=== PATIENT | male | born 1970 | race Caucasian/White ===

== ENCOUNTER 2017-07-26 16:47 | Emergency (ER) | payer OTHER, SELFPAY ==
[2017-07-26 16:48] VITALS: BP 147/90; PULSE 90; RESP 17; TEMP 38.6; O2SAT 96; BMI 33.3
[2017-07-26 17:49] LABS: Mucous, Urine 0 SEEN /hpf (<or=2+); Squamous Epithelial Cells - UA 0 SEEN /hpf (0-5)
[2017-07-26] MEDS: Acetaminophen 500 MG Tablet 1000 MG PO (17:49)
[2017-07-26 17:55] LABS: Color, Urine Yellow (Yellow); Glucose, Dipstick Normal (Normal); Ketone-Dipstick Negative (Negative); Leukocyte Esterase-Dipstick 25 /ul (Negative); Nitrite-Dipstick Negative (Negative); Occult Blood-Urine 10 /ul (Negative); Protein-Dipstick 30 mg/dl (Negative); Specific Gravity, Urine 1.015 (1.002-1.030); Urine Bilirubin Dipstick Negative (Negative); Urine Clarity Sl. Cloudy (Clear); Urine Urobilinogen 4 mg/dl (Normal); Urine pH 6.5 (5.0 - 8.0)
[2017-07-26 17:58] LABS: Absolute Neutrophil Count 13.8 X10^3/uL (2.0-7.7); Basophil# 0.02 X10^3/uL; Basophil% 0.1 % (0-1); Eosinophil# 0.02 X10^3/uL; Eosinophils% 0.1 % (0-5); Hematocrit 44.9 % (40-54); Hemoglobin 15.1 g/dl (13.0-16.5); Lymphocyte % 13.2 % (19-41); Mean Corp Hgb Conc 33.6 g/gl (32-36); Mean Corpuscular Volume 89.1 fL (80-94); Mean Platelet Vol. 9.5 fl (6.2-12.0); Monocyte# 1.82 X10^3/uL; Neutrophil # 13.82 X10^3/uL (2.7-7.7); Neutrophil % 76.2 % (47-70); Platelet Count 220 K/mm3 (150-450); RBC Distribution Width CV 12.9 % (11.6-14.6); RBC Distribution Width SD 41.7 fl (35.1-43.9); Red Blood Count 5.04 M/mm3 (4.6-6.2); White Blood Count 18.2 K/mm3 (4.4-11.0)
[2017-07-26 17:59] LABS: Differential Indicated SCAN CRITERIA MET; POSITIVE COUNT NO; POSITIVE DIFFERENTIAL YES; POSITIVE MORPHOLOGY NO
[2017-07-26 18:01] LABS: Bacteria 1+ /hpf (None Seen); Red Blood Cells-Urine 0-5 SEEN /hpf (0-5); White Blood Cells 5-10 SEEN /hpf (0-5)
[2017-07-26 18:04] LABS: Anion Gap 7 (5-15); BUN 15 mg/dL (7-18); BUN/Creat Ratio 12.4 RATIO (10-20); Calcium,Total 8.3 mg/dL (8.5-10.1); Chloride 102 mmol/L (98-107); Creatinine, Serum 1.21 mg/dL (0.70-1.30); EST Glomerular Filtration Rate 69 mL/min (>60); Est Glom Filt Rate - Afr Amer 83 mL/min (>60); Estimated Creatinine Clearance 69.57 ml/min; Glucose 96 mg/dL (74-106); Potassium 3.9 mmol/L (3.5-5.1); Sodium Level 135 mmol/L (136-145)
[2017-07-26 18:24] LABS: Differential Comment SCANNED
--- NOTE | 2017-07-26 18:28 | CT_ITS ---
STUDY: CT ABDOMEN AND PELVIS WITHOUT CONTRAST REASON FOR EXAM: Male, 46 years old. Right flank pain, fever, and chills x2 days RADIATION DOSAGE (If Supplied By Facility): CTDIvol = ( 12.18 ) mGy, DLP = ( 617.80 ) mGycm TECHNIQUE: Transaxial images were obtained from the dome of the diaphragm to the symphysis pubis without oral contrast, and without intravenous contrast. Sagittal and coronal images were reconstructed. Individualized dose optimization techniques were used for this CT. COMPARISON: None. FINDINGS: The visualized lung bases are unremarkable. The visualized portions of the heart are within normal limits. There is decreased attenuation of the liver consistent with steatosis. Normal gallbladder and extrahepatic biliary system. Normal spleen. Normal pancreas. Normal bilateral adrenal glands. Normal right kidney. There is mild right perinephric stranding. There is a punctate nonobstructing calculus in the midpole of the left kidney. Normal visualized stomach. Normal small intestine. There is mild sigmoid diverticulosis with no evidence of associated diverticulitis. The appendix is visualized and appears normal. There are calcified plaques of the abdominal aorta. Normal inferior vena cava. Normal retroperitoneum. Normal urinary bladder. The prostate is mildly enlarged. Prostatic calcifications are present. There is a small umbilical hernia containing fat. There mild degenerative changes of the visualized thoracolumbar spine. CT/Abdomen/Pelvis without Cont IMPRESSION: 1. Hepatic steatosis. 2. Mild right perinephric stranding. There is no evidence of right hydronephrosis, nephrolithiasis, hydroureter, or ureterolithiasis. 3. Punctate nonobstructing calculus of the mid pole of the left kidney. 4. Mild sigmoid diverticulosis with no evidence of associated diverticulitis. 5. The appendix is normal. 6. Mildly enlarged prostate containing calcifications. 7. Small fat-containing umbilical hernia. Electronically Signed: Slade Kendall MD at 19:06 EDT , Service support ,
[2017-07-26 19:23] VITALS: BP 138/78; PULSE 73; RESP 16; TEMP 38; O2SAT 96
[2017-07-26] MEDS: Ceftriaxone 1 GM/50 ML BAG IV (19:36)
--- NOTE | 2017-07-26 20:33 | ED.VISSUMM ---
- ER Visit Summary Date of Service: 07/26/17 Chief Complaint: Fever History of Present Illness: The patient is a 46 M who had gradual onset of mild pain in his mid low back yesterday, today started having fevers and chills subjectively, pain moved to the right side only. Also some mild dysuria. No abdominal pain, cough, dyspnea, or other symptoms. Never had any urinary or prostate problems in the past. Physical Examination: Well-appearing in no acute distress. Abdomen soft nontender nondistended. No CVA tenderness, superficial back tenderness, or rash. Lungs clear, heart is regular with mild tachycardia. Neck is supple without lymphadenopathy. Test Results: White blood count is 18 with a strong left shift, no bandemia. Kidney function is normal. Urinalysis shows 5-10 white blood cells with trace leukocyte esterase and negative nitrite. CT shows perinephric stranding on the right. No urolithiasis or obstructive uropathy. Emergency Department Course and Treatment: Given white blood count and lack of significant findings of infection on urinalysis, CT was obtained, which does show pyelonephritis findings, which is what I was suspicious of clinically. He was given Tylenol for his fever and pain and declined offers for any other analgesics. Culture was sent and he was given empiric Rocephin 1 g IV. On reevaluation his temperature is down to 99.8 from 101. Unknown why he contracted pyelonephritis, will refer to urology as an outpatient. Treatment Plan: Cipro ?10 days after already given Rocephin IV Disposition: Discharge home Impression: Pyelonephritis This note was generated with Splash[employer] dictation software. It may contain incorrect words, spelling, and punctuation that were not noted in review of the chart prior to signing ED Disposition - Plan for ED Patient: Disposition: Home or Assisted Living Chief Complaint: Flank Pain Instructions: ED UTI Pyelonephritis Male Prescriptions: Ciprofloxacin [Cipro] 500 mg PO BID #20 tab Referrals: Gustabo Salas MD [STAFF PHYSICIAN] - As soon as possible
[2017-07-26] MEDS: Ciprofloxacin 500 MG Tablet PO (20:44)
[2017-07-26 20:45] VITALS: PULSE 67; RESP 16; TEMP 37.7; O2SAT 97
== END 2017-07-26 20:46 | disposition home or self-care (01) ==
PROVIDERS: Emergency Provider Emergency Medicine; Family Provider Family Medicine; PCP Family Medicine
DX: N12 Tubulo-interstitial nephritis, not specified as acute or chronic (principal); I10 Essential (primary) hypertension
CPT/HCPCS: 74176; 80048; 81001; 85025; 87086; 87088; 87186; 99284; J7050; A4216

== ENCOUNTER → 2017-09-01 16:07 | Outpatient (CLI) | payer OTHER, SELFPAY ==
[2017-09-01 17:53] LABS: Absolute Lymphocyte Count 2.36 X10^3/ul (0.83-4.51); Absolute Neutrophil Count 11.2 X10^3/uL (2.0-7.7); Basophil# 0.02 X10^3/uL; Basophil% 0.1 % (0-1); Eosinophil# 0.05 X10^3/uL; Eosinophils% 0.3 % (0-5); Hematocrit 40.7 % (40-54); Hemoglobin 13.6 g/dl (13.0-16.5); Lymphocyte # 2.36 X10^3/ul (4.0); Lymphocyte % 15.4 % (19-41); Mean Corp Hgb Conc 33.4 g/gl (32-36); Mean Corpuscular Volume 89.6 fL (80-94); Mean Platelet Vol. 9.8 fl (6.2-12.0); Monocyte# 1.63 X10^3/uL; Monocyte% 10.6 % (0-10); Neutrophil # 11.21 X10^3/uL (2.7-7.7); Neutrophil % 73.1 % (47-70); Platelet Count 293 K/mm3 (150-450); Red Blood Count 4.54 M/mm3 (4.6-6.2); White Blood Count 15.4 K/mm3 (4.4-11.0)
[2017-09-01 17:55] LABS: Differential Indicated SCAN CRITERIA MET; POSITIVE COUNT NO; POSITIVE DIFFERENTIAL YES; POSITIVE MORPHOLOGY NO
[2017-09-01 18:03] LABS: Anion Gap 9 (5-15); BUN 14 mg/dL (7-18); Calcium,Total 8.7 mg/dL (8.5-10.1); Chloride 105 mmol/L (98-107); Creatinine, Serum 1.17 mg/dL (0.70-1.30); EST Glomerular Filtration Rate 71 mL/min (>60); Est Glom Filt Rate - Afr Amer 86 mL/min (>60); Glucose 88 mg/dL (74-106); Sodium Level 138 mmol/L (136-145)
[2017-09-01 18:05] LABS: Erythrocyte Sedimentation Rate 27 mm/hr (0-15)
[2017-09-01 18:17] LABS: Anisocytosis RARE; Platelet Estimate ADEQUATE (ADEQ)
[2017-09-02 14:44] LABS: Pathologist Review Reviewed
== END ==
PROVIDERS: Family Provider Family Medicine; PCP Family Medicine; Visit Provider Family Medicine
DX: N10 Acute pyelonephritis (principal)
CPT/HCPCS: 36415; 80048; 85025; 85652; 86140; 87086; 87088

== ENCOUNTER 2018-10-15 08:42 | Emergency (ER) | payer OTHER, SELFPAY ==
[2018-10-15 08:45] VITALS: BP 192/96; PULSE 72; RESP 17; TEMP 36.7; O2SAT 98; BMI 31.6
--- NOTE | 2018-10-15 09:14 | CT_ITS ---
STUDY: CT BRAIN WITHOUT CONTRAST REASON FOR EXAM: Male, 48 years old. RADIATION DOSAGE (If Supplied By Facility): CTDIvol = ( 44.99 ) mGy, DLP = ( 745.49 ) mGycm TECHNIQUE: Transaxial CT imaging of the brain was performed without administration of intravenous contrast material. Individualized dose optimization techniques were used for this CT. COMPARISON: No relevant priors. FINDINGS: Normal soft tissue structures. Normal calvarium. Normal size ventricles and extra-axial spaces for the patient's age. Normal white matter tracts of the cerebral hemispheres. Normal basal ganglia and thalami. Normal brainstem. Normal cerebellum. There is no intracranial hemorrhage. There are no findings of an acute ischemic infarction. Normal visualized paranasal sinuses. Except for small retention cyst or a polyp posterior aspect left maxillary sinus CT/Brain/Head without Contrast IMPRESSION: Normal unenhanced CT scan of the brain. Electronically Signed: Brooks Cochran, at 10:26 EDT Tel , Service support ,
--- NOTE | 2018-10-15 09:14 | EKG12_ITS ---
Test Reason : DIZZINESS Blood Pressure : / mmHG Vent. Rate : 073 BPM Atrial Rate : 073 BPM P-R Int : 150 ms QRS Dur : 086 ms QT Int : 386 ms P-R-T Axes : 046 -25 056 degrees QTc Int : 425 ms Normal sinus rhythm with sinus arrhythmia Minimal voltage criteria for LVH, may be normal variant Inferior infarct , age undetermined Abnormal ECG Confirmed by HERNESTO PEREZ, JERRICA ([id number]), newspaper editor managing NATHALIA ALVA ([id number]) on 10/18/2018 11:42:47 AM Referred By: DC Confirmed By:ABI ERIC MD
--- NOTE | 2018-10-15 09:14 | RAD_ITS ---
STUDY: X-RAY CHEST REASON FOR EXAM: Male, 48 years old. TECHNIQUE: 1 view COMPARISON: None. FINDINGS: The lungs are clear and expanded. There is no demonstrated pleural abnormality. Normal size heart. Normal mediastinum and natan. Normal visualized pulmonary arteries. Normal visualized aortic arch and descending thoracic aorta.. There is mild elevation of the right hemidiaphragm. Normal visualized thoracic spine. Normal visualized ribs, clavicles, and shoulders. There is no demonstrated abnormality of the visualized soft tissue structures of the upper abdomen. RAD/Chest 1 View IMPRESSION: Normal x-ray examination of the chest. Electronically Signed: Brooks Cochran, at 10:28 EDT Tel , Service support ,
--- NOTE | 2018-10-15 09:17 | ED.VISSUMM ---
- ER Visit Summary Date of Service: 10/15/18 Chief Complaint: Numbness and tingling History of Present Illness: The patient is a 48 M with numbness and tingling in his left arm. 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 He also felt mildly dizzy. It was worse with standing and changing positions. He attributed this to working in the hot and humid weather, but when his symptoms persisted today, he called his doctor. He was referred to the ED. Patient has no prior history of this. No other neurologic symptoms like vision changes, facial droop, weakness. No chest pain or shortness of breath. No nausea, vomiting, or abnormal sweats. No history of heart disease, but he does have hypertension and family history of heart disease. He was playing volleyball last week and felt well. He sometimes gets short of breath with exertion. He does not take blood thinners. Physical Examination: Afebrile and vital signs unremarkable except for a blood pressure of 192/96. He is alert and oriented. No acute distress. NIH stroke scale is 1 for decreased sensation and paresthesias in his left arm. Heart regular. Lungs clear. Extremities unremarkable. Skin appears normal. Test Results: EKG, labs, chest x-ray, CT pending. Emergency Department Course and Treatment: Patient placed on a monitor. Will place IV. Will administer fluid bolus. Orthostatics are pending. Will check for stroke, vascular, cardiac causes. Will reassess. EKG showed sinus rhythm at a rate of 73 with nonspecific changes. CBC, BMP, coags, troponin unremarkable. Orthostatics were negative. Chest x-ray and brain CT were negative. On reevaluation, patient has no new or worsening symptoms. Overall he is low risk for coronary disease as well as stroke. I believe he is appropriate for outpatient care. Prior to discharge, I did check a CTA, head, neck, chest. Imaging was unremarkable. Repeat troponin was negative. Patient discussed with his PCPs on-call partner. Will add HCTZ 12.5 mg daily. Follow-up with the office. Call on Thursday. Return to the ER for new or worsening issues. Treatment Plan: As above Disposition: Discharge Impression: 1. Left arm paresthesias 2. Dizziness This note was generated with WiserTogetheration software. It may contain incorrect words, spelling, and punctuation that were not noted in review of the chart prior to signing ED Disposition - Plan for ED Patient: Referrals: Javed Meier MD [Primary Care Provider] -
[2018-10-15] MEDS: 0.9% Normal Saline 1,000 ML 999 ML IV (09:26)
[2018-10-15 09:46] VITALS: BP 154/89; BP 166/102; BP 174/100; PULSE 65; PULSE 75; PULSE 77
[2018-10-15 10:02] LABS: Absolute Lymphocyte Count 1.76 X10^3/ul (0.83-4.51); Absolute Neutrophil Count 3.5 X10^3/uL (2.0-7.7); Basophil# 0.01 X10^3/uL; Basophil% 0.2 % (0-1); Eosinophil# 0.04 X10^3/uL; Eosinophils% 0.7 % (0-5); Hematocrit 46.5 % (40-54); Hemoglobin 16.1 g/dl (13.0-16.5); Lymphocyte # 1.76 X10^3/ul (4.0); Lymphocyte % 29.6 % (19-41); Mean Corp Hgb Conc 34.6 g/gl (32-36); Mean Corpuscular Volume 89.6 fL (80-94); Mean Platelet Vol. 9.9 fl (6.2-12.0); Monocyte# 0.55 X10^3/uL; Monocyte% 9.3 % (0-10); Neutrophil # 3.52 X10^3/uL (2.7-7.7); Neutrophil % 59.2 % (47-70); Platelet Count 278 K/mm3 (150-450); RBC Distribution Width CV 12.9 % (11.6-14.6); RBC Distribution Width SD 42.1 fl (35.1-43.9); Red Blood Count 5.19 M/mm3 (4.6-6.2); White Blood Count 5.9 K/mm3 (4.4-11.0)
[2018-10-15 10:04] LABS: POSITIVE COUNT NO; POSITIVE DIFFERENTIAL NO; POSITIVE MORPHOLOGY NO; Prothrombin Time (Protime)PT. 12.6 SECONDS (11.7-14.9)
[2018-10-15 10:05] LABS: Partial Thromboplast Time 25.5 Seconds (24.1-36.2)
[2018-10-15 10:10] LABS: Anion Gap 2 (5-15); BUN 15 mg/dL (7-18); BUN/Creat Ratio 13.5 RATIO (10-20); Calcium,Total 8.8 mg/dL (8.5-10.1); Chloride 105 mmol/L (98-107); Creatinine, Serum 1.11 mg/dL (0.70-1.30); EST Glomerular Filtration Rate 76 mL/min (>60); Est Glom Filt Rate - Afr Amer 91 mL/min (>60); Estimated Creatinine Clearance 76.92 ml/min; Glucose 124 mg/dL (74-106); Potassium 4.2 mmol/L (3.5-5.1); Sodium Level 133 mmol/L (136-145)
--- NOTE | 2018-10-15 10:55 | CT_ITS ---
STUDY: CTA NECK WITH CONTRAST REASON FOR EXAM: Male, 48 years old. Dizziness. RADIATION DOSAGE (If Supplied By Facility): CTDIvol = ( 19.10 ) mGy, DLP = ( 1709.15 ) mGycm TECHNIQUE: CT angiography with multi-detector data acquisition was performed from the aortic arch to the skull base following intravenous administration of 100 IV Isovue 370. MIP images were reconstructed from the axial data set. Post-processing of the angiographic images was performed, with multiplanar reformation and 3D reconstruction. Individualized dose optimization techniques were used for this CT. COMPARISON: None. FINDINGS: AORTIC ARCH: Normal visualized aortic arch. Normal origins of the brachiocephalic, left common carotid, and left subclavian arteries. RIGHT CAROTID ARTERIES: Normal right common carotid artery (CCA). There is mild atherosclerotic plaque formation with minimal narrowing of the right carotid bulb. Normal origin of the right internal carotid (ICA) artery without a hemodynamically significant stenosis. Normal visualized cervical portion of the right internal carotid artery. Normal origin of the right external carotid artery (ECA). LEFT CAROTID ARTERIES: Normal left common carotid artery (CCA). There is mild atherosclerotic plaque formation with minimal narrowing of the left carotid bulb. Normal origin of the left internal carotid (ICA) artery without a hemodynamically significant stenosis. Normal visualized cervical portion of the left internal carotid artery. Normal origin of the left external carotid artery (ECA). VERTEBRAL ARTERIES: Normal bilateral vertebral arteries. CT/CTA Neck W/WO Contrast IMPRESSION: No evidence of significant steno-occlusive disease or aneurysm. Electronically Signed: Davy Carmona DO at 12:41 EDT , Service support ,
--- NOTE | 2018-10-15 10:55 | CT_ITS ---
STUDY: CTA CHEST REASON FOR EXAM: Male, 48 years old. Dizziness, left arm paresthesia, hypertension. RADIATION DOSAGE (If Supplied By Facility): CTDIvol = ( 19.10 ) mGy, DLP = ( 1709.15 ) mGycm TECHNIQUE: The examination was performed with the intravenous administration of 100 IV Isovue 370. Post-processing of the angiographic images was performed, with multiplanar reformation and 3D reconstruction. Individualized dose optimization techniques were used for this CT. COMPARISON: CTA neck same date, x-ray chest same date, CT abdomen and pelvis 07/26/2017. FINDINGS: Upper abdomen: Hepatic steatosis with hepatomegaly. Body wall soft tissues: No acute process. Supraclavicular: No acute process. Osseous structures: Mild scoliosis, mild thoracic spondylosis, no acute process. Mediastinum: Normal esophagus. No mediastinal or hilar mass or lymphadenopathy. Aorta: Normal. Pulmonary arteries: Normal. Heart: No significant cardiomegaly. No pericardial effusion. No visible coronary calcifications. Lungs: Normal. CT/CTA Chest W/WO Contrast IMPRESSION: Normal CTA chest examination, without a demonstrated pulmonary embolism or arterial dissection. Electronically Signed: Bill Mcdermott MD at 12:32 EDT Tel , Service support ,
--- NOTE | 2018-10-15 10:55 | CT_ITS ---
STUDY: CTA OF THE BRAIN REASON FOR EXAM: Male, 48 years old. Dizziness with left arm paresthesias. RADIATION DOSAGE (If Supplied By Facility): CTDIvol = ( 19.10 ) mGy, DLP = ( 1709.15 ) mGycm TECHNIQUE: CT angiography was performed with a multi-detector CT scanner. Data acquisition was obtained from the skull base through the vertex following intravenous administration of 100 IV Isovue 370. MIP images were reconstructed from the axial data set. Post-processing of the angiographic images was performed, with multiplanar reformation and 3D reconstruction. Individualized dose optimization techniques were used for this CT. COMPARISON: None. FINDINGS: Normal bilateral petrous carotid arteries. Normal right cavernous carotid artery with a normal supraclinoid bifurcation. Normal left cavernous carotid artery with a normal supraclinoid bifurcation. There is hypoplastic development of the right A1 segment of the anterior cerebral arteries with an atretic but intact artery. Normal left A1 segments of the anterior cerebral artery. Normal intact anterior communicating artery (ACOM). Normal bilateral A2 segments of the anterior cerebral arteries. Normal right M1 and M2 segments of the middle cerebral arteries, with a normal M1 bifurcation. Normal left M1 and M2 segments of the middle cerebral arteries, with a normal M1 bifurcation. There is a persistent origin of the right posterior cerebral artery with absence of the posterior communicating artery (PCOM). Normal left posterior communicating artery (PCOM). Normal bilateral vertebral arteries. Normal basilar artery with a normal basilar bifurcation. The visualized bilateral superior cerebellar (SCA) arteries are normal. Normal bilateral P1, P2 and visualized P3 segments of the posterior cerebral arteries. There is no demonstrated aneurysm of the [place]. There is no demonstrated abnormality of the visualized brain. CT/CTA Head W/WO Contrast IMPRESSION: No evidence of significant steno-occlusive disease or aneurysm. Electronically Signed: Davy Carmona DO at 12:42 EDT , Service support ,
[2018-10-15 11:29] VITALS: BP 166/70; PULSE 74; RESP 15; O2SAT 95
--- NOTE | 2018-10-15 13:18 | ED.DEP ---
ED Disposition - Plan for ED Patient: Instructions: DIZZINESS, Unk Cause Prescriptions: Hydrochlorothiazide [Hctz] 12.5 mg PO DAILY #30 tab Prescription Printed Referrals: Javed Meier MD [Primary Care Provider] -
[2018-10-15 13:23] VITALS: BP 166/95; PULSE 65; RESP 13; O2SAT 95
== END 2018-10-15 13:30 | disposition home or self-care (01) ==
LOC: ED 09:28
PROVIDERS: Emergency Provider Emergency Medicine; Family Provider Family Medicine; PCP Family Medicine
DX: R20.2 Paresthesia of skin (principal); R42 Dizziness and giddiness; R06.02 Shortness of breath; I10 Essential (primary) hypertension
CPT/HCPCS: 70450; 70496; 70498; 71045; 71275; 80048; 84484; 85025; 85610; 85730; 93005; 96360; 99285; J7030; Q9967; A4216

== ENCOUNTER → 2019-07-12 17:26 | Outpatient (CLI) | payer OTHER, SELFPAY | PROVIDERS: PCP Family Medicine; Referring Provider Family Medicine; Visit Provider Family Medicine | DX: R35.0 Frequency of micturition (principal) | CPT/HCPCS: 87086 ==

== ENCOUNTER 2020-05-25 21:32 | Emergency (ER) | payer OTHER, SELFPAY ==
[2020-05-25 21:33] VITALS: BP 158/116; PULSE 98; RESP 16; TEMP 36.9; O2SAT 96; BMI 31.8
--- NOTE | 2020-05-25 21:47 | ED.DCSUM_ITS ---
History of Present Illness Chief Complaint: Syncope Informant: Patient Narrative: 49-year-old male presenting with chief complaint of having a near syncopal episode yesterday while driving. He states that there was just a moment where he felt a little fuzzy and fell to hot flash in his legs. He pulled over and was able to walk around and felt fine and has felt fine until today when he had the symptoms of a hot flash in his legs again. He did not get near syncopal today. He denies any chest pain but states he does have a little bit of epigastric discomfort. He has not had any nausea or vomiting. He is making normal urine and stool. He states that he had Covid about a month ago and it has recovered. Past Medical History - Allergies and Home Meds Allergies/Adverse Reactions: Allergies No Known Allergies Allergy (Verified 05/25/20 21:35) Primary Care Physician: Javed Meier MD [Primary Care Provider] - Prior records reviewed: Yes Past Medical History: - - Hypertension Surgical History: noncontributory Lives: Spouse/ Significant Other Smoking Status: Never smoker Alcohol: None Drugs: None Review of Systems General: Denies: Chills, Fever, Sweats Eyes: Denies: Visual changes - bilaterally, Diplopia ENT: Denies: Rhinorrhea, Sore throat Cardiovascular: Denies: Chest pain, Palpitations Respiratory: Denies: Dyspnea, Cough, Dyspnea on exertion Gastrointestinal: Reports: - - Mild epigastric discomfort. Denies: Nausea, Vomiting Musculoskeletal: Denies: Myalgias, Arthralgias Skin: Denies: Rash, Abscess Neurological: Reports: - - Hot flashes in his legs. Denies: Headache, Weakness Psych: Denies: Depression, Anxiety Physical Exam Vital Signs/Narrative: Vital Signs Temp Pulse Resp BP Pulse Ox 05/25/20 21:33 98.5 F 98 16 158/116 H 96 Inital Vital Signs reviewed: Yes General: Well nourished, No Acute Distress Head: Normocephalic, Atraumatic Eyes: Perrl, EOMI ENT: Moist mucous membranes, No rhinorrhea Cardiovascular: Regular rate, Regular rhythm Respiratory: No distress, CTA bilaterally Abdomen: Soft, Nontender Extremities: Nontender, No edema Skin: Normal color, No rash Neurological: Alert, Oriented x3, Cranial nerves II-XII grossly intact Psychological: Normal affect, Normal Mood Diagnostic/Tx/Re-eval Clinical Impression(s) from Imaging Studies Chest X-Ray 05/25/20 22:27 IMPRESSION: Negative chest radiograph. Electronically Signed: Slade Clay MD at 22:52 EST Tel , Service support , Laboratory Data 05/25/20 05/25/20 21:50 21:50 WBC 8.4 RBC 5.14 Hgb 15.3 Hct 46.2 MCV 89.9 MCH 29.8 MCHC 33.1 RDW Std Deviation 41.0 RDW Coeff of Simone 12.4 Plt Count 334 MPV 10.2 Immature Gran % (Auto) 1.000 H Neut % (Auto) 44.0 L Lymph % (Auto) 41.9 H Dawson % (Auto) 10.9 H Eos % (Auto) 1.7 Baso % (Auto) 0.5 Absolute Neuts (auto) 3.7 Absolute Lymphs (auto) 3.51 Nucleated RBC % 0 Sodium 138 Potassium 4.2 Chloride 105 Carbon Dioxide 30.0 Anion Gap 3 L BUN 16 Creatinine 1.20 Estim Creat Clear Calc 67.94 Est GFR (MDRD) Af Amer 83 Est GFR (MDRD) Non-Af 69 BUN/Creatinine Ratio 13.3 Glucose 118 H Calcium 9.1 Troponin I < 0.015 - Rhythm Strip Rhythm Strip: Sinus Rhythm Rate: 88 - EKG Initial EKG Interpretation: Sinus Rhythm, No Acute Injury Pattern - Medical Decision Making 49-year-old male presenting with feeling of near syncope. He did complain of some mild epigastric discomfort which was fleeting. It did not sound cardiac in nature but I did check cardiac enzymes and are normal. Patient is PERC negative. Chest x-ray is interpreted by myself shows no acute cardiopulmonary process. Radiology does agree. EKG interpreted by myself shows a normal sinus rhythm at 88 bpm without signs of ischemic change. Patient's orthostatic vitals are normal. Think given the patient's negative work-up he is safe to be di scharged home. He is counseled to follow-up with his PCP to ensure resolution. Impression: 1. Near syncope ED Disposition - Plan for ED Patient: Disposition: Home or Assisted Living Instructions: ED Near-Fainting, Uncertain Cause Referrals: Javed Meier MD [Primary Care Provider] -
--- NOTE | 2020-05-25 22:09 | EKG12_ITS ---
Test Reason : PALPITATIONS Blood Pressure : / mmHG Vent. Rate : 088 BPM Atrial Rate : 088 BPM P-R Int : 148 ms QRS Dur : 084 ms QT Int : 354 ms P-R-T Axes : 049 -20 064 degrees QTc Int : 428 ms Normal sinus rhythm Normal ECG Confirmed by HERNESTO PEREZ, JERRICA ([id number]), avid editor JONNATHAN PRESCOTT ([id number]) on 05/28/2020 12:18:09 PM Referred By: LEIDY Confirmed By:ABI ERIC MD
[2020-05-25 22:10] VITALS: BP 144/89; BP 146/98; BP 152/92; PULSE 102; PULSE 81; PULSE 85
[2020-05-25] MEDS: 0.9% Normal Saline 1,000 ML 1000 ML IV (22:22)
--- NOTE | 2020-05-25 22:27 | RAD_ITS ---
STUDY: X-RAY CHEST REASON FOR EXAM: Male, 49 years old. Syncope. Chest pain. COVID one month ago. TECHNIQUE: AP COMPARISON: 10/15/2018 CXR FINDINGS: No apparent pneumothorax, pneumonia, pleural effusion, or edema. Mild elevation right hemidiaphragm unchanged. Cardiac silhouette, natan and mediastinal contours are within normal limits. No acute osseous abnormality. No evidence of free air under the diaphragm. RAD/Chest 1 View (Portable) IMPRESSION: Negative chest radiograph. Electronically Signed: Slade Clay MD at 22:52 EST Tel , Service support ,
[2020-05-25 23:02] LABS: Anion Gap 3 (5-15); BUN 16 mg/dL (7-18); BUN/Creat Ratio 13.3 RATIO (10-20); Calcium,Total 9.1 mg/dL (8.5-10.1); Chloride 105 mmol/L (98-107); EST Glomerular Filtration Rate 69 mL/min (>60); Est Glom Filt Rate - Afr Amer 83 mL/min (>60); Estimated Creatinine Clearance 67.94 ml/min; Glucose 118 mg/dL (74-106); Potassium 4.2 mmol/L (3.5-5.1); Sodium Level 138 mmol/L (136-145)
[2020-05-25 23:03] LABS: Absolute Lymphocyte Count 3.51 X10^3/uL (0.83-4.51); Absolute Neutrophil Count 3.7 X10^3/uL (2.0-7.7); Basophil# 0.04 X10^3/uL; Basophil% 0.5 % (0-1); Eosinophil# 0.14 X10^3/uL; Eosinophils% 1.7 % (0-5); Hematocrit 46.2 % (40-54); Hemoglobin 15.3 g/dL (13.0-16.5); Lymphocyte # 3.51 X10^3/ul (4.0); Lymphocyte % 41.9 % (19-41); Mean Corp Hgb Conc 33.1 g/dL (32-36); Mean Corpuscular Hgb 29.8 pg (27.0-32.0); Mean Corpuscular Volume 89.9 fL (80-94); Mean Platelet Vol. 10.2 fl (6.2-12.0); Monocyte# 0.91 X10^3/uL; Monocyte% 10.9 % (0-10); NRBC Flagged by Analyzer 0 % (0-5); Platelet Count 334 K/mm3 (150-450); RBC Distribution Width CV 12.4 % (11.6-14.6); Red Blood Count 5.14 M/mm3 (4.6-6.2); White Blood Count 8.4 K/mm3 (4.4-11.0)
[2020-05-25 23:08] VITALS: BP 144/86; PULSE 82; RESP 11; O2SAT 97
[2020-05-25 23:25] VITALS: BP 135/82; PULSE 78; RESP 19; O2SAT 96
== END 2020-05-25 23:35 | disposition home or self-care (01) ==
PROVIDERS: Emergency Provider Student in an Organized Health Care Education/Training Program; PCP Family Medicine
DX: R55 Syncope and collapse (principal); I10 Essential (primary) hypertension; R23.2 Flushing
CPT/HCPCS: 71045; 80048; 84484; 85025; 93005; 96360; 99285; A4216

== ENCOUNTER → 2021-02-13 08:13 | Outpatient (CLI) | payer OTHER, SELFPAY ==
[2021-02-13 10:16] LABS: Hematocrit 50.9 % (40-54); Hemoglobin 17.1 g/dL (13.0-16.5); Mean Corp Hgb Conc 33.6 g/dL (32-36); Mean Corpuscular Volume 89.3 fL (80-94); Mean Platelet Vol. 10.2 fl (6.2-12.0); Platelet Count 331 K/mm3 (150-450); RBC Distribution Width CV 12.2 % (11.6-14.6); RBC Distribution Width SD 40.1 fl (35.1-43.9); White Blood Count 6.4 K/mm3 (4.4-11.0)
[2021-02-13 10:38] LABS: Anion Gap 7 (5-15); BUN 18 mg/dL (7-18); BUN/Creat Ratio 14.9 RATIO (10-20); Calcium,Total 9.5 mg/dL (8.5-10.1); Chloride 101 mmol/L (98-107); Cholesterol 254 mg/dL (200); Creatinine, Serum 1.21 mg/dL (0.70-1.30); EST Glomerular Filtration Rate 68 mL/min (>60); Est Glom Filt Rate - Afr Amer 82 mL/min (>60); Glucose 117 mg/dL (74-106); High Density Lipoprotein 42 mg/dL; Potassium 4.4 mmol/L (3.5-5.1); Sodium Level 135 mmol/L (136-145); Thyroid Stim Hormone (TSH) 0.71 uIU/mL (0.358-3.74); Triglycerides 172 mg/dL; Very Low Density Lipoprotein 34 mg/dL (5-40)
[2021-02-13 12:40] LABS: Vitamin B12 623 pg/mL (211-911); Vitamin D,25 Hydroxy 29.2 ng/mL
== END ==
PROVIDERS: PCP Family Medicine; Referring Provider Family Medicine; Visit Provider Family Medicine
DX: I10 Essential (primary) hypertension (principal); R53.83 Other fatigue
CPT/HCPCS: 36415; 80048; 80061; 82306; 82607; 84403; 84443; 85027

== ENCOUNTER → 2021-12-02 | Outpatient (CLI) | payer OTHER, SELFPAY ==
--- NOTE | 2021-12-02 18:49 | STRESSREP ---
Stress Test Report Exercise myocardial perfusion stress test. 51-year-old male with a history of hypertension. Stress protocol: Resting EKG demonstrates normal sinus rhythm with a rate of 55 bpm normal intervals are noted resting blood pressure is 132/80 mmHg. Patient exercised according to regular Ronaldo protocol for total duration of 12 minutes. Patient completed stage IV of the Ronaldo protocol. The maximum heart rate attained was 157 bpm which was 92% of max impacted heart rate the maximum workload was 13.4 metabolic equivalents. At rest there were no ST or T wave changes noted suggest ischemia and at peak exercise upsloping ST changes were noted with did not meet the criteria for ischemia. No clinical angina was noted the test was terminated due to the target heart rate being achieved. The peak blood pressure was 210/84 mmHg. Myocardial perfusion protocol. 14.7 mCi of technetium 99m sestamibi was injected at rest. The patient exercised according to regular Ronaldo protocol. At peak exercise 44.3 mCi of technetium 99m sestamibi was injected stress images were obtained stress and rest images were reconstructed and compared in the short axis vertical long and horizontal long axis. Gated images were also obtained. Perfusion SPECT analysis: Review of the stress images demonstrate normal uptake of tracer noted in all areas of the myocardium. The resting images similarly demonstrate normal uptake of tracer noted in all areas of the myocardium. No reversibility is noted to suggest ischemia and no previous infarct is noted. Gated SPECT analysis: The gated ejection fraction is 65%. Conclusion: Normal exercise myocardial perfusion stress test. Preserved ejection fraction.
== END | disposition home or self-care (01) ==
LOC: CVS 06:34
PROVIDERS: PCP Family Medicine; Referring Provider Internal Medicine Cardiovascular Disease; Visit Provider Internal Medicine Cardiovascular Disease
DX: I10 Essential (primary) hypertension (principal); R07.9 Chest pain, unspecified
CPT/HCPCS: 78452; 93017; A9500; A4216

== ENCOUNTER 2022-05-07 15:31 | Emergency (ER) | payer OTHER, SELFPAY ==
[2022-05-07 15:32] VITALS: BP 167/93; PULSE 60; RESP 18; TEMP 35.8; O2SAT 98; BMI 30.7
--- NOTE | 2022-05-07 15:41 | EKG12_ITS ---
Test Reason : NEAR SYNCOPE Blood Pressure : / mmHG Vent. Rate : 061 BPM Atrial Rate : 061 BPM P-R Int : 160 ms QRS Dur : 090 ms QT Int : 418 ms P-R-T Axes : 025 -32 044 degrees QTc Int : 420 ms Normal sinus rhythm Left axis deviation Minimal voltage criteria for LVH, may be normal variant ( R in aVL ) Abnormal ECG Confirmed by RAKESH PEREZ, EDUARDO ([id number]), features editor JONNATHAN PRESCOTT ([id number]) on 05/12/2022 12:20:42 PM Referred By: SACHIN Confirmed By:EDUARDO CAMERON MD
--- NOTE | 2022-05-07 15:42 | EDS_ITS ---
HPI History of Present Illness Chief Complaint: Syncope Narrative Narrative: 51-year-old male past medical history of hypertension presents with near syncopal episode that happened while he was at home. He states this happened to him 1 time before. He has been on a diet since the beginning of the year and lost a few pounds. He did not exert himself today, just doing a few chores around the house. He took his blood pressure and it was normal at 116 systolic. As he was sitting, he got this strange feeling like a funny feeling starting in his lower abdomen and heading upward towards his head. He denies any nausea or vomiting. No shortness of breath or chest pain. He got up to take his blood pressure again, and noticed it was elevated at 186 systolic. He denies any exacerbating or alleviating factors to this near syncopal episode. He denies any actual syncope, passing out, and states that he has been feeling well over the last few weeks. However, the last time he had a near syncopal episode was a few years ago when he had COVID. [facility] Medical History Chest pain Essential hypertension Hyperlipidemia Pre-syncope Home Medications loratadine 10 mg tablet 10 mg PO DAILY PRN Allergies 10/15/18 [History Last Taken 10/14/18] lisinopril 40 mg tablet 40 mg PO DAILY #90 tabs 05/01/21 [Rx Last Taken Unknown] atorvastatin 10 mg tablet 10 mg PO DAILY #90 tabs 11/27/21 [Rx Last Taken Unknown] hydrochlorothiazide 12.5 mg tablet 12.5 mg PO DAILY 11/27/21 [History Last Taken Unknown] Allergy/AdvReac Type Severity Reaction Status Date / Time No Known Allergies Allergy Verified 05/07/22 15:32 Family History Brother Hypertension Multiple sclerosis Mother Arthritis Father Hypertension Hyperlipidemia Sister Multiple sclerosis Surgical History Amputation finger (2005) H/O nasal septoplasty (2008) Social History Smoking Status: Never smoker alcohol intake: current alcohol intake frequency: a few times a week substance use type: does not use caffeine: Yes Type: coffee Number of servings: 2 ROS ROS ED ROS Narrative Constitutional: No fever, no chills. Elevated blood pressure after presyncopal event. HEENT: No sore throat. No neck pain. No loss of vision. No rhinorrhea. Cardiovascular: No chest pain. No palpitations. No pedal edema. Respiratory: No cough, no shortness of breath. Abdominal: No abdominal pain. No nausea. No vomiting. Strange feeling from lower abdomen up towards chest-resolved Genitourinary: No dysuria. No hematuria. Musculoskeletal: No myalgias. No arthralgias. Neurologic: No headaches. No dizziness. No lightheadedness. Skin: No rash. No change in color. Psychiatric: No depression. No anxiety. EXAM Physical Exam Narrative Exam Narrative: Afebrile. Vital signs noted. Elevated blood pressure of 167/93, then 155 systolic. HEENT: Normocephalic. Atraumatic. PERRL, EOMI. Neck soft and supple. No point tenderness or step off. Cardiovascular: Regular rate and rhythm. No murmurs, rubs, or gallops appreciated. Respiratory: No tachypnea. Lungs clear to auscultation bilaterally. Gastrointestinal: Abdomen soft, nontender, with normoactive bowel sounds. No rebound or guarding. Neurological: Awake. Alert. Nonfocal, nonlateralizing. Skin: No rash. Normal color. No pallor. Musculoskeletal: No pedal edema. Full range of motion extremities. Const Vital Signs: 05/07/22 15:32 05/07/22 16:34 05/07/22 17:33 Temperature 96.5 F L Temperature Source Temporal Pulse Rate 60 74 Pulse Rate [Lying] 61 Pulse Rate [Sitting (for 1 minute prior to obtaining)] 60 Respiratory Rate 18 Blood Pressure 167/93 H 135/86 H Blood Pressure [Lying] 118/90 H Blood Pressure [Sitting (for 1 minute prior to obtaining)] 138/89 H Blood Pressure [Standing (for 1 minute prior to obtaining)] 130/92 H Blood Pressure Mean 117 102 Blood Pressure Mean [Lying] 99 Blood Pressure Mean [Sitting (for 1 minute prior to obtaining)] 105 Blood Pressure Mean [Standing (for 1 minute prior to obtaining)] 104 Pulse Ox 98 99 Oxygen Delivery Method Room Air Room Air 05/07/22 18:44 Temperature Temperature Source Pulse Rate 56 L Pulse Rate [Lying] Pulse Rate [Sitting (for 1 minute prior to obtaining)] Respiratory Rate 17 Blood Pressure 112/76 Blood Pressure [Lying] Blood Pressure [Sitting (for 1 minute prior to obtaining)] Blood Pressure [Standing (for 1 minute prior to obtaining)] Blood Pressure Mean 88 Blood Pressure Mean [Lying] Blood Pressure Mean [Sitting (for 1 minute prior to obtaining)] Blood Pressure Mean [Standing (for 1 minute prior to obtaining)] Pulse Ox 98 Oxygen Delivery Method Room Air MDM MDM MDM Narrative Medical decision making narrative: In the differential diagnosis is nonspecific presyncope versus orthostatic hypotension. He also could have had transient drop in his blood sugar which subsequent only put him into a type of panic attack, elevating his blood pressure. Patient was placed on a quality assurance monitor chassis. I will obtain a CBC to make sure he is not anemic, CMP to check his electrolytes, EKG given his presyncope to rule out dysrhythmias. His blood pressure is starting to come down on its own, and he does have a past medical history of hypertension. EKG was obtained and interpreted by myself which demonstrates normal sinus rhythm at 61 bpm without ectopy or acute ST changes. No STEMI. No significant change when compared to EKG dated May 25, 2020. I reviewed his laboratory work and his WBC count is normal at 7.5, hemoglobin 15.6, hematocrit 46.0, normal platelet count of 309. I also reviewed his CMP which is remarkable for a BUN of 21 and normal creatinine of 1.0 which may be mild dehydration. Glucose is appropriately elevated at 108 with a normal anion gap of 7. High-sensitivity troponin is 7. Urinalysis is negative for infection or ketones. Chest x-ray interpreted by myself shows no acute process, no pneumothorax or infiltrate. I reviewed the radiology report. I agree that there is no acute process. At this point in time I feel he can be discharged safely home although I am unsure as to the cause of his near syncope. Given his elevated blood pressure which has now normalized to 112/76, he will follow-up with Dr. 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 Return instructions to the emergency department were reviewed. Disposition is discharged home in stable condition. Lab Data Attestation: I reviewed the patient's lab results. Labs: Laboratory Results - last 24 hr 05/07/22 05/07/22 05/07/22 15:43 15:43 15:43 WBC 7.5 RBC 5.18 Hgb 15.6 Hct 46.0 MCV 88.8 MCH 30.1 MCHC 33.9 RDW Std Deviation 39.0 RDW Coeff of Simone 11.9 Plt Count 309 MPV 9.2 Immature Gran % (Auto) 0.400 Neut % (Auto) 45.0 L Lymph % (Auto) 42.8 H [place] % (Auto) 9.9 Eos % (Auto) 1.5 Baso % (Auto) 0.4 Absolute Neuts (auto) 3.4 Absolute Lymphs (auto) 3.23 Nucleated RBC % 0 Sodium 136 Potassium 4.3 Chloride 106 Carbon Dioxide 23.0 Anion Gap 7 BUN 21 H Creatinine 1.04 Estim Creat Clear Calc 76.68 Est GFR (MDRD) Af Amer 97 Est GFR (MDRD) Non-Af 80 BUN/Creatinine Ratio 20.2 H Glucose 108 H Calcium 8.9 Total Bilirubin 0.50 AST 40 H ALT 58 Alkaline Phosphatase 59 Troponin I High Sens 7 Total Protein 7.4 Albumin 3.6 Globulin 3.8 Albumin/Globulin Ratio 0.9 Urine Color Urine Clarity Urine pH Ur Specific [place] Urine Protein Urine Glucose (UA) Urine Ketones Urine Occult Blood Urine Nitrite Urine Bilirubin Urine Urobilinogen Ur Leukocyte Esterase Urine RBC Urine WBC Ur Squamous Epith Cells Urine Bacteria Urine Mucus 05/07/22 16:01 WBC RBC Hgb Hct MCV MCH MCHC RDW Std Deviation RDW Coeff of Simone Plt Count MPV Immature Gran % (Auto) Neut % (Auto) Lymph % (Auto) [place] % (Auto) Eos % (Auto) Baso % (Auto) Absolute Neuts (auto) Absolute Lymphs (auto) Nucleated RBC % Sodium Potassium Chloride Carbon Dioxide Anion Gap BUN Creatinine Estim Creat Clear Calc Est GFR (MDRD) Af Amer Est GFR (MDRD) Non-Af BUN/Creatinine Ratio Glucose Calcium Total Bilirubin AST ALT Alkaline Phosphatase Troponin I High Sens Total Protein Albumin Globulin Albumin/Globulin Ratio Urine Color Yellow Urine Clarity Clear Urine pH 6.5 Ur Specific [place] 1.020 Urine Protein Negative Urine Glucose (UA) Normal Urine Ketones Negative Urine Occult Blood Negative Urine Nitrite Negative Urine Bilirubin Negative Urine Urobilinogen Normal Ur Leukocyte Esterase Negative Urine RBC 0 SEEN Urine WBC 0 SEEN Ur Squamous Epith Cells 0 SEEN Urine Bacteria 0 SEEN Urine Mucus 0 SEEN Radiography Diagnostic Testing: Clinical Impression(s) from Imaging Studies Chest X-Ray 05/07/22 15:51 IMPRESSION: No acute cardiopulmonary disease with interval change. Electronically Signed: Dave ValdezDO at 16:08 EST Reading Location ID and State: [address] [place] [address] Tel [phone], Service support , Discharge Plan Triage Chief Complaint: Syncope Other Complaint: Hypertension ED Provider: Adam Mohan Dx/Rx/DC Orders Clinical Impression: Near syncope, Hypertension Instructions: ED Hypertension, Established, ED Near-Fainting, Uncertain Cause Prescriptions: No Action lisinopril 40 mg tablet 40 mg PO DAILY Qty: 90 4RF hydrochlorothiazide 12.5 mg tablet 12.5 mg PO DAILY atorvastatin 10 mg tablet 10 mg PO DAILY Qty: 90 3RF loratadine 10 MG tablet 10 mg PO DAILY PRN (Reason: Allergies) Primary Care Provider: Javed Meier Referrals: Bonilla Lujan MD [Med Staff - Active Staff] - As soon as possible Javed Meier MD [Primary Care Provider] - As Needed Disposition Disposition: Home, Self Care
--- NOTE | 2022-05-07 15:51 | RAD_ITS ---
STUDY: X-RAY CHEST REASON FOR EXAM: Male, 51 years old. Coronary artery disease. Near syncope about 1500 hours. Elevated blood pressure. TECHNIQUE: Single AP portable view of the chest. COMPARISON: May 25, 2020. FINDINGS: The lungs are clear and expanded. There is no demonstrated pleural abnormality. Normal size heart. Normal mediastinum and natan. Normal visualized pulmonary arteries. Normal visualized aortic arch and descending thoracic aorta. Normal visualized thoracic spine. Normal visualized ribs, clavicles, and shoulders. There is no demonstrated abnormality of the visualized soft tissue structures of the upper abdomen. RAD/Chest 1 View (Portable) IMPRESSION: No acute cardiopulmonary disease with interval change. Electronically Signed: Dave Valdez DO at 16:08 EST ,
[2022-05-07 15:53] LABS: Absolute Lymphocyte Count 3.23 X10^3/uL (0.83-4.51); Absolute Neutrophil Count 3.4 X10^3/uL (2.0-7.7); Basophil# 0.03 X10^3/uL; Basophil% 0.4 % (0-1); Eosinophil# 0.11 X10^3/uL; Eosinophils% 1.5 % (0-5); Hemoglobin 15.6 g/dL (13.0-16.5); Lymphocyte # 3.23 X10^3/ul (0.83-4.51); Lymphocyte % 42.8 % (19-41); Mean Corp Hgb Conc 33.9 g/dL (32-36); Mean Corpuscular Hgb 30.1 pg (27.0-32.0); Mean Corpuscular Volume 88.8 fL (80-94); Mean Platelet Vol. 9.2 fl (6.2-12.0); Monocyte# 0.75 X10^3/uL; Monocyte% 9.9 % (0-10); NRBC Flagged by Analyzer 0 % (0-5); Neutrophil # 3.39 X10^3/uL (2.7-7.7); Platelet Count 309 K/mm3 (150-450); RBC Distribution Width CV 11.9 % (11.6-14.6); Red Blood Count 5.18 M/mm3 (4.6-6.2); White Blood Count 7.5 K/mm3 (4.4-11.0)
[2022-05-07 16:17] LABS: Bacteria 0 SEEN /hpf (None Seen); Mucous, Urine 0 SEEN /hpf (<or=2+); Red Blood Cells-Urine 0 SEEN /hpf (0-5); Squamous Epithelial Cells - UA 0 SEEN /hpf (0-5); White Blood Cells 0 SEEN /hpf (0-5)
[2022-05-07 16:23] LABS: ALB/GLOB Ratio 0.9 RATIO (0.9-2.4); AST(SGOT) 40 U/L (15-37); Alanine Aminotransfer ALT/SGPT 58 U/L (16-61); Albumin, Serum 3.6 g/dL (3.2-5.0); Alkaline Phosphatase 59 U/L (45-117); Anion Gap 7 (5-15); BUN 21 mg/dL (7-18); BUN/Creat Ratio 20.2 RATIO (10-20); Calcium,Total 8.9 mg/dL (8.5-10.1); Chloride 106 mmol/L (98-107); Creatinine, Serum 1.04 mg/dL (0.70-1.30); EST Glomerular Filtration Rate 80 mL/min (>60); Est Glom Filt Rate - Afr Amer 97 mL/min (>60); Estimated Creatinine Clearance 76.68 ml/min; Globulin 3.8 g/dL (2.2-4.2); Glucose 108 mg/dL (74-106); Potassium 4.3 mmol/L (3.5-5.1); Protein, Total 7.4 g/dL (6.4-8.2); Sodium Level 136 mmol/L (136-145)
[2022-05-07 16:33] LABS: Color, Urine Yellow (Yellow); Glucose, Dipstick Normal (Normal); Ketone-Dipstick Negative (Negative); Leukocyte Esterase-Dipstick Negative /ul (Negative); Nitrite-Dipstick Negative (Negative); Occult Blood-Urine Negative /ul (Negative); Protein-Dipstick Negative (Negative); Urine Bilirubin Dipstick Negative (Negative); Urine Clarity Clear (Clear); Urine Urobilinogen Normal (Normal); Urine pH 6.5 (5.0 - 8.0)
[2022-05-07 16:34] VITALS: BP 118/90; BP 130/92; BP 138/89; PULSE 60; PULSE 61
[2022-05-07 17:33] VITALS: BP 135/86; PULSE 74; O2SAT 99
[2022-05-07 18:44] VITALS: BP 112/76; PULSE 56; RESP 17; O2SAT 98
[2022-05-07 18:48] LABS: Troponin-I HS 7 pg/mL (3.0-78.0)
== END 2022-05-07 19:07 | disposition home or self-care (01) ==
PROVIDERS: Emergency Provider Emergency Medicine; PCP Family Medicine; Visit Provider Emergency Medicine
DX: R55 Syncope and collapse (principal); I10 Essential (primary) hypertension; E78.5 Hyperlipidemia, unspecified
CPT/HCPCS: 71045; 80053; 81001; 84484; 85025; 93005; 99285; A4216

== ENCOUNTER → 2022-05-14 | Outpatient (CLI) | payer OTHER, SELFPAY ==
[2022-05-14 17:46] LABS: AST(SGOT) 22 U/L (15-37); Alanine Aminotransfer ALT/SGPT 50 U/L (16-61); Albumin, Serum 3.9 g/dL (3.2-5.0); Alkaline Phosphatase 61 U/L (45-117); Bilirubin, Direct 0.08 mg/dL (0.00-0.30); Cholesterol 206 mg/dL (200); Globulin 3.8 g/dL (2.2-4.2); High Density Lipoprotein 36 mg/dL; Protein, Total 7.7 g/dL (6.4-8.2); Triglycerides 252 mg/dL; Very Low Density Lipoprotein 50 mg/dL (5-40)
== END | disposition home or self-care (01) ==
LOC: LAB 16:10
PROVIDERS: PCP Family Medicine; Visit Provider Physician Assistant Medical
DX: I10 Essential (primary) hypertension (principal); E78.5 Hyperlipidemia, unspecified; R55 Syncope and collapse
CPT/HCPCS: 36415; 80061; 80076

== ENCOUNTER → 2022-05-19 | Outpatient (CLI) | payer OTHER, SELFPAY ==
[2022-05-19 15:38] LABS: Bacteria 0 SEEN /hpf (None Seen); Mucous, Urine 0 SEEN /hpf (<or=2+); Red Blood Cells-Urine 0 SEEN /hpf (0-5); Squamous Epithelial Cells - UA 0 SEEN /hpf (0-5); White Blood Cells 0 SEEN /hpf (0-5)
[2022-05-19 15:51] LABS: Color, Urine Straw (Yellow); Glucose, Dipstick Normal (Normal); Ketone-Dipstick Negative (Negative); Leukocyte Esterase-Dipstick Negative /ul (Negative); Nitrite-Dipstick Negative (Negative); Occult Blood-Urine Negative /ul (Negative); Protein-Dipstick Negative (Negative); Specific Gravity, Urine 1.015 (1.002-1.030); Urine Bilirubin Dipstick Negative (Negative); Urine Clarity Clear (Clear); Urine Urobilinogen Normal (Normal)
== END | disposition home or self-care (01) ==
LOC: LABSPEC 14:59
PROVIDERS: PCP Family Medicine; Referring Provider Nurse Practitioner Family; Visit Provider Nurse Practitioner Family
DX: R35.0 Frequency of micturition (principal)
CPT/HCPCS: 81001; 87086

== ENCOUNTER → 2023-03-13 | Outpatient (CLI) | payer OTHER, SELFPAY | END | disposition home or self-care (01) | PROVIDERS: PCP Family Medicine; Referring Provider Physician Assistant Surgical; Visit Provider Physician Assistant Surgical | DX: R30.0 Dysuria (principal) | CPT/HCPCS: 87086 ==

== ENCOUNTER → 2023-03-27 | Outpatient (CLI) | payer OTHER, SELFPAY ==
--- NOTE | 2023-03-27 15:45 | US_ITS ---
INDICATION: Testicular pain/ lump . Right testicle lump for 2 weeks. EXAMINATION: Ultrasound US Scrotum (Contents) TECHNIQUE: Realtime ultrasound of the testicles was performed with grayscale, Color Doppler and spectral Doppler analysis. COMPARISON: None. FINDINGS: TESTES: Symmetric size and homogeneous. Intratesticular vascular flow demonstrated bilaterally. No evidence of testicular torsion. EPIDIDYMIDES: Symmetric size and vascularity. Multiple cystic structures versus larger complex cyst with septations on the right adjacent to the right epididymal head, overall size is approximately 2.5 x 2 cm. HYDROCELE: Small on the left. VARICOCELE: Present on the left. SCROTAL WALL: Unremarkable. OTHER: None. US/Testicular with Arterial Flow IMPRESSION: Multiple small cysts versus large complex septated cyst on the right adjacent to the epididymal head. Follow-up ultrasound recommended in 4-6 weeks to assess for resolution. Small left hydrocele. Left varicocele. No evidence of testicular torsion. Electronically Signed: Devika Anne MD at 22:32 EST ,
== END | disposition home or self-care (01) ==
LOC: US 15:44
PROVIDERS: PCP Family Medicine; Referring Provider Family Medicine; Visit Provider Family Medicine
DX: N50.819 Testicular pain, unspecified (principal); N43.3 Hydrocele, unspecified; I86.1 Scrotal varices; N44.00 Torsion of testis, unspecified
CPT/HCPCS: 76870; 93976

== ENCOUNTER → 2023-05-05 | Outpatient (CLI) | payer OTHER, SELFPAY ==
--- NOTE | 2023-05-05 16:13 | US_ITS ---
INDICATION: f/u RT CYSTIC AREA EXAMINATION: Ultrasound US Scrotum (Contents) TECHNIQUE: Realtime ultrasound of the testicles was performed with grayscale, Color Doppler and spectral Doppler analysis. COMPARISON: 03/27/2023 FINDINGS: RIGHT: TESTIS: 3.9 x 3.0 x 2.0 cm. Normal in size and echotexture, without focal lesion. COLOR DOPPLER: Normal arterial flow present in the testicle with monophasic waveforms. EPIDIDYMIS: Normal in size and echotexture, without focal lesion. [Normal color Doppler flow pattern in the epididymis. HYDROCELE: Large multicystic collection similar to prior study with maximum transverse dimension approximately 3.1 cm. VARICOCELE: None. LEFT: TESTIS: 4.0 x 2.8 x 1.7 cm. Normal in size and echotexture, without focal lesion. COLOR DOPPLER: Normal arterial flow present in the testicle with monophasic waveforms. EPIDIDYMIS: Normal in size and echotexture, without focal lesion. [Normal color Doppler flow pattern in the epididymis. HYDROCELE: Small. VARICOCELE: Present. US/Testicular with Arterial Flow IMPRESSION: Normal testes bilaterally. Stable cystic right hydrocele similar to prior study. This may be the sequela of prior trauma or infection. Recommend urological consultation if not previously obtained. Electronically Signed: Perry Marquez MD at 19:54 EST ,
--- OUTSIDE RECORDS SUMMARY | 2023-05-05 17:54 | XMS RPT_ITS | CCD ---
Author Name Unknown Address [address] [place] [address] Organization [facility] Results Test Name Value Interpretation Reference Range Facil ity Summary Purpose Family History No Family History Records Found Advance Directives No Advanced Directives Records Found Additional Source Comments (unrecognized sect ion and content) No Status Records Found INFORMATION SOURCE (unrecogn ized section and content) FOR RECORDS PERTAINING TO PATIENTS WHO ARE OR HAVE BEEN ENROLLED IN A CHEMICAL DEPENDENCY/SUBSTANCEABUSE PROGRAM, SOME INFORMATION MAY BE OMITTED. This clinical summary was aggregated from multiple sources. Caution should be exercised in using it in the provision of clinical care. This summary normalizes information from multiple sources, and as a consequence, information in this document may materially change the coding, format and clinical context of patient data. In addition, data may be omitted in some cases. CLINICAL DECISIONS SHOULD BE BASED ON THE PRIMARY CLINICAL RECORDS. [employer] provides no warranty or guarantee of the accuracy or completeness of information in this document.
== END | disposition home or self-care (01) ==
LOC: US 16:11
PROVIDERS: PCP Family Medicine; Referring Provider Family Medicine; Visit Provider Family Medicine
DX: N50.819 Testicular pain, unspecified (principal)
CPT/HCPCS: 76870; 93976

== ENCOUNTER → 2023-06-08 | Outpatient (CLI) | payer OTHER, SELFPAY ==
[2023-06-08 17:27] LABS: PSA,Total - Annual Screen 1.13 ng/mL (0.00-4.00)
== END | disposition home or self-care (01) ==
LOC: LABSPEC 15:46
PROVIDERS: PCP Family Medicine; Visit Provider Urology
DX: Z12.5 Encounter for screening for malignant neoplasm of prostate (principal)
CPT/HCPCS: 36415; 84153; G0103

== ENCOUNTER 2023-09-03 07:16 | Day surgery (SDC) | payer OTHER, SELFPAY ==
[2023-09-03 07:42] VITALS: BP 148/97; PULSE 69; RESP 16; TEMP 36.5; O2SAT 97; BMI 28.8
[2023-09-03] MEDS: Lactated Ringers 1,000 ML 15 ML IV (07:42)
--- NOTE | 2023-09-03 08:22 | HP.PCM_ITS ---
[facility] - General General Date of Service: 09/03/23 HPI Narrative DEREK CERDA, is a 52 M who presents for screening colonoscopy. He confirms his preappointment questionnaire that he has not experienced any change in his bowel habits-and particularly denies any notice of blood. He also denies any family history of GI illness to include diverticulitis, inflammatory bowel disease, or colon cancer. Lastly he confirms that his prep was completed successfully and that his output is now clear. [facility] Medical History (Updated 09/01/23 @ 14:14 by Cesilia Kumar) Alcohol use Cardiology follow-up encounter Chest pain CPAP (continuous positive airway pressure) dependence Essential hypertension Gastric reflux High cholesterol History of echocardiogram History of stress test Hyperlipidemia Non-smoker Pre-syncope Sleep apnea Wears glasses Home Medications hydrochlorothiazide 12.5 mg tablet 12.5 mg PO DAILY 11/27/21 [History Last Taken 09/01/23] atorvastatin 10 mg tablet 10 mg PO DAILY #90 tabs 08/27/22 [Rx Last Taken 09/01/23] lisinopril 40 mg tablet 40 mg PO DAILY #90 tabs 06/08/23 [Rx Last Taken 09/03/23] multivitamin (Daily Multi-Vitamin tablet) 1 tab PO DAILY 09/01/23 [History Last Taken Unknown] Allergy/AdvReac Type Severity Reaction Status Date / Time No Known Allergies Allergy Verified 09/03/23 07:41 Family History Brother Hypertension Multiple sclerosis Mother Arthritis Father Hypertension Hyperlipidemia Sister Multiple sclerosis Surgical History Amputation finger (2005) H/O nasal septoplasty (2008) Social History (Updated 07/13/23 @ 09:15 by Radhika Rivera) household members: spouse current occupational status: employed Smoking Status: Never smoker alcohol intake: current alcohol intake frequency: a few times a week substance use type: does not use caffeine: Yes Type: coffee Number of servings: 2 Past Medical/Surgical History Planned Operation Planned Operative Procedure/s: COLONOSCOPY-OA Previous Hospitalizations/Surgeries HX Hospitalizations: No Any Problems With Anesthesia: No You/Your Family Experience Fever (Hyperthermia) With Anes: No Cholinesterase deficiency: No Cardiovascular Hx Hypertension: Yes (CONTROLLED ON MED) Respiratory Hx Sleep Apnea: Yes CPAP: Yes (NO MACHINE) BIPAP: No Hx Respiratory Tract Infection/Cold (presently): No Result (for STOP score): Positive Smoking Status: Never smoker Neurological Does patient have nerve stimulator: No Endocrine Hx Diabetes: No Psycho/Social Hx Anxiety: No Hx Depression: No Miscellaneous Recent Exposure to Contagious Disease: No Allergies No Known Allergies Allergy (Verified 09/03/23 07:41) Discharge Is Pt Admitted From a Penitentiary, or a Retirement: No After D/C, Where Do you Plan to Go: Return Home Vital Signs Vital Signs Vital Signs: 09/03/23 07:42 09/03/23 07:42 Temperature 97.7 F L Temperature Source Temporal Pulse Rate 69 Respiratory Rate 16 Respiratory Pattern Normal Blood Pressure 148/97 H Blood Pressure Mean 114 Blood Pressure Source Monitor Blood Pressure Position Semi-Fowlers Blood Pressure Location Right Arm Pulse Ox 97 Oxygen Delivery Method Room Air Weight Weight: 184 lb 4.903 oz Body Mass Index (BMI) 28.8 Physical Exam Const alert, oriented x3, no apparent distress and average body habitus Resp normal respiratory effort GI Inspection: Negative for abdominal distention Palpation: soft; Negative for tender Assessment & Plan Assessment/Plan (1) Encounter for screening for malignant neoplasm of colon: PLAN: Patient is a 52-year-old male who presents for open access colonoscopy. He confirms his preappointment questionnaire and denies any present issues. He confirms that he completion of a prep. Procedure expectations and reporting of procedure results were reviewed. Neither patient nor spouse had any further questions. Will now proceed to endoscopy suite for planned screening colonoscopy. Surgery Risks - Colonoscopy Risks Include but are not Limited To: Risks include but are not limited to: Bleeding, perforation requiring further surgery, inability to complete colonoscopy requiring barium enema.
[2023-09-03 09:05] VITALS: BP 148/97; BP 95/61; PULSE 58; RESP 16; TEMP 36.8; O2SAT 95
--- NOTE | 2023-09-03 09:06 | OP.CCLET_ITS ---
09/03/2023 Javed Meier [address] [place] [address] Re : Colonoscopy procedure for Anthony Payne Dear Dr. Meier This procedure was performed on August. My impressions and recommendations are as follows: Impressions : - Diverticulosis in the sigmoid colon. No specimens collected. - One 3 mm, non-bleeding polyp in the distal sigmoid colon, removed with a hot snare. Resected and retrieved. - One 3 mm polyp in the sigmoid colon. Biopsied. - The examination was otherwise normal on direct and retroflexion views. Recommendations : - Discharge patient to home (via wheelchair). - Resume previous diet today. - Continue present medications. - Await pathology results. - Repeat colonoscopy date to be determined after pending pathology results are reviewed for surveillance based on pathology results. - Telephone my office for pathology results in 1 week. My findings are described in the full procedure note, which is enclosed. If I can be of further assistance, please feel free to contact me at Doctor phone number(s): , Work: . Sincerely, Jj Kovacs MD 09/03/2023 9:05:50 AM This report has been signed electronically.
--- NOTE | 2023-09-03 09:06 | OP.COLON_ITS ---
Patient Name: Anthony Payne Procedure Date: 09/03/2023 8:13 AM Date of : 1970 Age: 52 Procedure: Colonoscopy Indications: Screening for colorectal malignant neoplasm Providers: Jj Kovacs MD Referring MD: Javed Meier Medicines: See the Anesthesia note for documentation of the administered medications Patient Profile: Refer to note in patient chart for documentation of history and physical. Last Colonoscopy: none. The patient's first colonoscopy is today. Complications: No immediate complications. Estimated blood loss: Minimal. Procedure: Pre-Anesthesia Assessment: - The heart rate, respiratory rate, oxygen saturations, blood pressure, adequacy of pulmonary ventilation, and response to care were monitored throughout the procedure. After I obtained informed consent, the scope was passed under direct vision. Throughout the procedure, the patient's blood pressure, pulse, and oxygen saturations were monitored continuously. The Colonoscope was introduced through the anus and advanced to the cecum, identified by appendiceal orifice and ileocecal valve. The colonoscopy was performed without difficulty. The patient tolerated the procedure well. The quality of the bowel preparation was adequate to identify polyps. Scope In: 8:31:08 AM Scope Withdrawal Time 0 hours 21 minutes 12 seconds Scope Out: 8:57:46 AM Total Procedure Duration Time 0 hours 26 minutes 38 seconds Findings: The perianal and digital rectal examinations were normal. A few small-mouthed diverticula were found in the sigmoid colon. No biopsies or other specimens were collected for this exam. A 3 mm, non-bleeding polyp was found in the distal sigmoid colon. The polyp was semi-pedunculated. The polyp was removed with a hot snare. Resection and retrieval were complete. Estimated blood loss: none. A 3 mm polyp was found in the sigmoid colon. The polyp was semi-sessile. Biopsies were taken with a cold forceps for histology. Estimated blood loss was minimal. The exam was otherwise without abnormality on direct and retroflexion views. Impression: - Diverticulosis in the sigmoid colon. No specimens collected. - One 3 mm, non-bleeding polyp in the distal sigmoid colon, removed with a hot snare. Resected and retrieved. - One 3 mm polyp in the sigmoid colon. Biopsied. - The examination was otherwise normal on direct and retroflexion views. Recommendation: - Discharge patient to home (via wheelchair). - Resume previous diet today. - Continue present medications. - Await pathology results. - Repeat colonoscopy date to be determined after pending pathology results are reviewed for surveillance based on pathology results. - Telephone my office for pathology results in 1 week. Procedure Code(s): --- Professional --- 74695, Colonoscopy, flexible; with removal of tumor(s), polyp(s), or other lesion(s) by snare technique 66540, 59, Colonoscopy, flexible; with biopsy, single or multiple Diagnosis Code(s): --- Professional --- Z12.11, Encounter for screening for malignant neoplasm of colon D12.5, Benign neoplasm of sigmoid colon K57.30, Diverticulosis of large intestine without perforation or abscess without bleeding CPT copyright 2021 [employer]. All rights reserved. The codes documented in this report are preliminary and upon saw straightener review may be revised to meet current compliance requirements. Jj Kovacs MD 09/03/2023 9:05:50 AM This report has been signed electronically. Number of Addenda: 0 Note Initiated On: 09/03/2023 8:13 AM
[2023-09-03 09:10] VITALS: BP 148/97; BP 92/65; PULSE 58; RESP 16; O2SAT 95
[2023-09-03 09:15] VITALS: BP 148/97; BP 96/66; PULSE 70; RESP 16; TEMP 36.4; O2SAT 95
[2023-09-03 09:47] VITALS: BP 148/97
--- NOTE | 2023-09-03 10:11 | COLBX_PTH ---
PATIENT: DEREK CERDA LOC: EN U#:[id number] AGE/SX: 52/M ROOM: RE09/03/[address]: Dr. Jj Kovacs MD : 1970 BED: DIS: 09/03/2023 SPEC #: [id number] RECD: 09/03/23 10:11 STATUS: JAMEL MICHAEL #: [id number] CRESENCIO: 09/03/23 10:[address]: Jj Kovacs DEPT: SURGICAL PATHOLOGY RECD BY: Escobar Friedman ENTERED: 09/03/23 10:39 SP TYPE: COLON BX LUCAS DR: Dr. George Meier MD Tissues: A - Sigmoid colon biopsy B - Sigmoid colon biopsy Procedures: Surgery Specimen Level IV HEADER OPERATION: Colonoscopy, polypectomy PRE-OP DIAGNOSIS: Encounter for screening for malignant neoplasm of colon TISSUE SUBMITTED: A- Distal sigmoid polyp, B- Sigmoid polyp biopsy MICROSCOPIC DIAGNOSIS A. Distal sigmoid polyp, polypectomy: Tubular adenoma. B. Sigmoid polyp, biopsy: Fragments of colonic mucosa, no pathologic diagnosis. / 09/04/2023 MICROSCOPIC DESCRIPTION Slides are reviewed. GROSS DESCRIPTION A. Received in fixative is one container labeled with the patient's name and designated Distal sigmoid polyp. The specimen consists of one irregular fragment of light adame soft tissue that measures 0.2 x 0.2 x 0.1 cm. The specimen is totally submitted in one cassette. B. Received in fixative is one container labeled with the patient's name and designated Sigmoid polyp biopsy. The specimen consists of multiple irregular fragments of light adame soft tissue that in aggregate measure 0.8 x 0.3 x 0.1 cm. The specimen is totally submitted in one cassette. / 09/03/23 TC:1 CPT:55141g0
== END 2023-09-03 09:50 | disposition home or self-care (01) ==
LOC: EN 07:16 → AC 07:17
PROVIDERS: PCP Family Medicine; Referring Provider Family Medicine; Visit Provider Surgery
PROC: 0DJD8ZZ Inspection of Lower Intestinal Tract, Via Natural or Artificial Opening Endoscopic (ICD-10-PCS; CPT 45378; principal; 2023-09-03 08:25)
DX: Z12.11 Encounter for screening for malignant neoplasm of colon (principal); K63.5 Polyp of colon; I10 Essential (primary) hypertension; E78.00 Pure hypercholesterolemia, unspecified; K57.30 Diverticulosis of large intestine without perforation or abscess without bleeding; Z79.899 Other long term (current) drug therapy; G47.30 Sleep apnea, unspecified; Z99.89 Dependence on other enabling machines and devices
CPT/HCPCS: 45385; 45380; 88305; J7120; J2405

== ENCOUNTER → 2023-09-07 | Outpatient (CLI) | payer OTHER, SELFPAY ==
--- NOTE | 2023-09-07 06:38 | MRI_ITS ---
HISTORY: Paresthesias. Balance issues, vision changes, tingling. TECHNIQUE: Multiplanar and multisequence MR images of the brain were obtained before and after the intravenous administration of 17 mL Clariscan. 362 images. COMPARISON: CT 10/15/2018. FINDINGS: BRAIN PARENCHYMA: No significant signal abnormality or enhancing lesion in the brain parenchyma. No abnormal focus of restricted diffusion to suggest acute infarct. No acute intracranial hemorrhage identified. CSF SPACES: Cerebral ventricles, cortical sulci, and other extra-axial CSF spaces within normal limits in size for age. No significant midline shift or other mass effect.No extra-axial fluid collection. VASCULAR SYSTEM: Major intracranial flow voids are maintained. PARANASAL SINUSES AND MASTOID AIR CELLS: Maxillary sinus polyps or mucous retention cysts. ORBITS: Symmetric contents. No abnormal enhancement of the optic nerves. MRI/Brain W/WO Contrast IMPRESSION: Unremarkable examination. No evidence for significant signal abnormality in the brain or enhancing intracranial mass. Electronically Signed: Hayde Martínez MD at 8:49 EDT ,
[2023-09-07 07:49] LABS: CREATININE FINGERSTICK < 1.0 mg/dL (0.70-1.30); EGFR FINGERSTICK > 60.0000 mL/min (>60)
[2023-09-07 08:21] LABS: Absolute Lymphocyte Count 3.22 X10^3/uL (0.83-4.51); Absolute Neutrophil Count 3.8 X10^3/uL (2.0-7.7); Basophil# 0.05 X10^3/uL; Basophil% 0.6 % (0-1); Eosinophil# 0.13 X10^3/uL; Eosinophils% 1.6 % (0-5); Hematocrit 46.5 % (40-54); Hemoglobin 15.4 g/dL (13.0-16.5); Lymphocyte # 3.22 X10^3/ul (0.83-4.51); Lymphocyte % 40.3 % (19-41); Mean Corp Hgb Conc 33.1 g/dL (32-36); Mean Corpuscular Hgb 30.1 pg (27.0-32.0); Mean Platelet Vol. 10.2 fl (6.2-12.0); Monocyte# 0.75 X10^3/uL; Monocyte% 9.4 % (0-10); NRBC Flagged by Analyzer 0 % (0-5); Neutrophil # 3.75 X10^3/uL (2.7-7.7); Neutrophil % 46.8 % (47-70); Platelet Count 336 K/mm3 (150-450); RBC Distribution Width CV 12.5 % (11.6-14.6); RBC Distribution Width SD 41.8 fl (35.1-43.9); Red Blood Count 5.11 M/mm3 (4.6-6.2)
[2023-09-07 08:25] LABS: Erythrocyte Sedimentation Rate 2 mm/hr (0-20)
[2023-09-07 08:44] LABS: AST(SGOT) 23 U/L (15-37); Alanine Aminotransfer ALT/SGPT 38 U/L (16-61); Albumin, Serum 3.5 g/dL (3.2-5.0); Alkaline Phosphatase 67 U/L (45-117); Anion Gap 3 (5-15); BUN 19 mg/dL (7-18); BUN/Creat Ratio 21.6 RATIO (10-20); CRP < 2.90 mg/L (0.0-3.0); Calcium,Total 9.2 mg/dL (8.5-10.1); Chloride 105 mmol/L (98-107); Cholesterol 162 mg/dL (200); Creatinine, Serum 0.88 mg/dL (0.70-1.30); EST Glomerular Filtration Rate 97 mL/min (>60); Est Glom Filt Rate - Afr Amer 117 mL/min (>60); Ferritin 215 ng/mL (26-388); Globulin 3.6 g/dL (2.2-4.2); Glucose 108 mg/dL (74-106); High Density Lipoprotein 36 mg/dL; Iron 91 ug/dL (65-175); Potassium 4.3 mmol/L (3.5-5.1); Protein, Total 7.1 g/dL (6.4-8.2); Sodium Level 136 mmol/L (136-145); Thyroid Stim Hormone (TSH) 0.64 uIU/mL (0.358-3.74); Triglycerides 232 mg/dL; Very Low Density Lipoprotein 46 mg/dL (5-40)
[2023-09-07 12:04] LABS: Hemoglobin A1c 5.5 % (3.8-5.6)
[2023-09-07 19:14] LABS: Vitamin B12 301 pg/mL (211-911); Vitamin D,25 Hydroxy 37.3 ng/mL
[2023-09-08 12:11] LABS: ANTINUCLEAR ANTIBODIES DIRECT Negative (Negative)
== END | disposition home or self-care (01) ==
PROVIDERS: PCP Family Medicine; Referring Provider Family Medicine; Visit Provider Family Medicine
DX: R20.2 Paresthesia of skin (principal); Z12.5 Encounter for screening for malignant neoplasm of prostate; E78.5 Hyperlipidemia, unspecified
CPT/HCPCS: 36415; 70553; 80053; 80061; 82306; 82607; 82728; 83036; 83540; 84403; 84443; 85025; 85652; 86038; 86140; A9575

== ENCOUNTER 2024-01-06 14:56 | Day surgery (SDC) | payer OTHER, SELFPAY ==
[2024-01-06] VITALS (12 sets, daily range): BP systolic 99–155; BP diastolic 51–89; PULSE 67–87; RESP 16–19; TEMP 36.6–37.2; O2SAT 94–99; BMI 30.1
--- NOTE | 2024-01-06 15:31 | ED.VIS.GI ---
HPI HPI - GI History of Present Illness Chief Complaint: Abd Pain Informant: patient and spouse/S.O. Narrative Narrative: 53-year-old male presenting to the emergency room with chief complaint of abdominal pain. The patient states that his right lower quadrant abdominal pain this morning has continued throughout the day. He notes is worse with getting up and moving around. He notes no nausea vomiting no dysuria no urinary frequency kidney stones diarrhea or constipation. He denies any geographic medical states if he remains still it starts to calm down. He notes that he has had prior kidney infection in the past but this does not feel similar. Notes a history of hypertension hypercholesterolemia. He notes that on Thursday he had hit his abdomen with a lawnmower handle but did not have any pain until today. He denies any bruising or swelling. [facility] Medical History Wears glasses Alcohol use High cholesterol Gastric reflux Non-smoker CPAP (continuous positive airway pressure) dependence Sleep apnea History of echocardiogram History of stress test Cardiology follow-up encounter Hyperlipidemia Chest pain Pre-syncope Essential hypertension Home Medications ?Medication ?Instructions ?Recorded ?Last Taken ?Type hydrochlorothiazide 12.5 mg tablet 12.5 mg PO DAILY 11/27/21 09/01/23 History lisinopril 40 mg tablet 40 mg PO DAILY #90 tabs 06/08/23 09/03/23 Rx multivitamin (Daily Multi-Vitamin 1 tab PO DAILY 09/01/23 Unknown History tablet) atorvastatin 10 mg tablet 10 mg PO DAILY #90 tabs 11/13/23 Unknown Rx loratadine 10 mg tablet 10 mg PO DAILY PRN 11/13/23 Unknown History Allergy/AdvReac Type Severity Reaction Status Date / Time No Known Allergies Allergy Verified 01/06/24 14:57 Family History Brother Hypertension Multiple sclerosis Mother Arthritis Father Hypertension Hyperlipidemia Sister Multiple sclerosis Surgical History Amputation finger (2005) H/O nasal septoplasty (2008) Social History household members: spouse current occupational status: employed Smoking Status: Never smoker alcohol intake: current alcohol intake frequency: a few times a week substance use type: does not use caffeine: Yes Type: coffee Number of servings: 2 ROS ROS ED Constitutional Constitutional ED: Denies chills, fever(s) or weight loss Eyes Eyes: Denies change in vision or diplopia ENT ENT ED: Denies ear pain, rhinorrhea or sore throat Cardiovascular Cardiovascular: Denies chest pain, orthopnea, palpitations or racing heartbeat Respiratory/Chest Respiratory/Chest: Denies cough, dyspnea or orthopnea Gastrointestinal Gastrointestinal: Reports abdominal pain; Denies constipation, diarrhea, nausea or vomiting Genitourinary Genitourinary ED: Denies dysuria, hematuria or urinary frequency Musculoskeletal Musculoskeletal: Denies arthralgias, back pain, myalgias or neck pain Integumentary Denies abscess or rash Neurologic Neurologic: Denies headache(s) or weakness Psychiatric Psychiatric: Denies anxiety, depression, suicidal ideation or suicidal thoughts Endocrine Endocrinology: Denies polydipsia, polyphagia or polyuria Allergic/Immunologic Allergic/Immunologic ED: Denies mouth swelling, tongue swelling or urticaria EXAM Physical Exam Const Vital Signs: 01/06/24 14:57 Temperature 97.9 F Temperature Source Temporal Pulse Rate 87 Respiratory Rate 18 Blood Pressure 155/89 H Blood Pressure Mean 111 Pulse Ox 94 Oxygen Delivery Method Room Air Positive well nourished and well developed General Appearance ED: well developed and NAD HEENT Reports normocephalic, head/scalp atraumatic and moist mucous membranes Eyes PERRL and EOMs intact bilaterally Neck no lymphadenopathy, supple and no JVD Resp normal respiratory effort and clear to auscultation bilaterally Cardio regular rate, regular rhythm and no murmurs GI non-distended and no masses Inspection: abdominal distention Palpation: soft, tender RLQ and guarding; Negative for hernia or rebound tenderness present Back/Spine no CVA tenderness and normal ROM Extremity normal to inspection General Extremety ED: Negative for edema General Extremity: Negative for edema Neuro oriented x3 and CN's II-XII intact bilaterally Sensorium / Orientation: alert Motor Exam: strength 5/5 throughout Psych mental status grossly normal Mood & Affect: Negative for depressed or tearful Skin no rashes or lesions noted and no wounds MDM MDM MDM Narrative Medical decision making narrative: Differential diagnosis includes but not limited to appendicitis colitis epiploic appendagitis mesenteric adenitis UTI/pyelonephritis acute cholecystitis diverticulitis colitis Patient received IV fluids morphine and Zofran. Patient's white count is elevated at 14 with 78.2 neutrophils 13.4 lymphocytes. Urinalysis is normal. CT of the abdomen pelvis with IV contrast was obtained. Upon my review this demonstrates acute appendicitis. Radiology agrees. I spoke with on-call surgery Dr. Lee. He will be down to evaluate the patient. Zosyn was ordered. Family and patient updated. History & Record Review Discussion w/independent historian: Patient and Significant other Lab Data Attestation: I reviewed the patient's lab results. Labs: Laboratory Results - last 24 hr 01/06/24 01/06/24 15:20 15:26 WBC 14.0 H RBC 4.76 Hgb 14.5 Hct 42.5 MCV 89.3 MCH 30.5 MCHC 34.1 RDW Std Deviation 40.2 RDW Coeff of Simone 12.3 Plt Count 272 MPV 9.4 Immature Gran % (Auto) 0.400 Neut % (Auto) 78.2 H Lymph % (Auto) 13.4 L Rock % (Auto) 7.4 Eos % (Auto) 0.4 Baso % (Auto) 0.2 Absolute Neuts (auto) 10.9 H Absolute Lymphs (auto) 1.88 Nucleated RBC % 0 Sodium 135 L Potassium 3.6 Chloride 106 Carbon Dioxide 25.0 Anion Gap 4 L BUN 17 Creatinine 1.05 Estim Creat Clear Calc 86.77 Est GFR (MDRD) Af Amer 95 Est GFR (MDRD) Non-Af 79 BUN/Creatinine Ratio 16.2 Glucose 102 Calcium 9.0 Total Bilirubin 0.50 Direct Bilirubin 0.15 AST 34 ALT 43 Alkaline Phosphatase 69 Total Protein 7.2 Albumin 3.5 Globulin 3.7 Lipase 35 Urine Color Yellow Urine Clarity Clear Urine pH 7.0 Ur Specific [place]man 1.010 Urine Protein Negative Urine Glucose (UA) Normal Urine Ketones Negative Urine Occult Blood Negative Urine Nitrite Negative Urine Bilirubin Negative Urine Urobilinogen Normal Ur Leukocyte Esterase Negative Urine RBC 0 SEEN Urine WBC 0 SEEN Ur Squamous Epith Cells 0 SEEN Urine Bacteria 0 SEEN Urine Mucus 0 SEEN Radiography Diagnostic Testing: Clinical Impression(s) from Imaging Studies Abdomen/Pelvis CT 01/06/24 16:18 IMPRESSION: Acute appendicitis. No free air or fluid collection. Hepatic steatosis. Electronically Signed: Rey Skinner MD at 16:30 EDT , Management Discussion w/another healthcare provider: Research Rn Spec (Dr Lee) and Radiologist Discharge Plan Dx/Rx/DC Orders Clinical Impression: Acute appendicitis, Abdominal pain, acute Disposition Disposition: Acute Care Hospital [facility]
[2024-01-06] MEDS: 0.9% Normal Saline (1000mL) 1,000 ML 999 ML IV (15:39)
[2024-01-06 15:43] LABS: Bacteria 0 SEEN /hpf (None Seen); Mucous, Urine 0 SEEN /hpf (<or=2+); Red Blood Cells-Urine 0 SEEN /hpf (0-5); Squamous Epithelial Cells - UA 0 SEEN /hpf (0-5); White Blood Cells 0 SEEN /hpf (0-5)
[2024-01-06 15:45] LABS: Color, Urine Yellow (Yellow); Glucose, Dipstick Normal (Normal); Ketone-Dipstick Negative (Negative); Leukocyte Esterase-Dipstick Negative /ul (Negative); Nitrite-Dipstick Negative (Negative); Occult Blood-Urine Negative /ul (Negative); Protein-Dipstick Negative (Negative); Urine Bilirubin Dipstick Negative (Negative); Urine Clarity Clear (Clear); Urine Urobilinogen Normal (Normal)
[2024-01-06 15:47] LABS: Absolute Lymphocyte Count 1.88 X10^3/uL (0.83-4.51); Absolute Neutrophil Count 10.9 X10^3/uL (2.0-7.7); Basophil# 0.03 X10^3/uL; Basophil% 0.2 % (0-1); Eosinophil# 0.05 X10^3/uL; Eosinophils% 0.4 % (0-5); Hematocrit 42.5 % (40-54); Hemoglobin 14.5 g/dL (13.0-16.5); Lymphocyte # 1.88 X10^3/ul (0.83-4.51); Lymphocyte % 13.4 % (19-41); Mean Corp Hgb Conc 34.1 g/dL (32-36); Mean Corpuscular Hgb 30.5 pg (27.0-32.0); Mean Corpuscular Volume 89.3 fL (80-94); Mean Platelet Vol. 9.4 fl (6.2-12.0); Monocyte# 1.04 X10^3/uL; Monocyte% 7.4 % (0-10); NRBC Flagged by Analyzer 0 % (0-5); Neutrophil # 10.93 X10^3/uL (2.7-7.7); Neutrophil % 78.2 % (47-70); Platelet Count 272 K/mm3 (150-450); RBC Distribution Width CV 12.3 % (11.6-14.6); RBC Distribution Width SD 40.2 fl (35.1-43.9); Red Blood Count 4.76 M/mm3 (4.6-6.2)
[2024-01-06 16:04] LABS: AST(SGOT) 34 U/L (15-37); Alanine Aminotransfer ALT/SGPT 43 U/L (16-61); Albumin, Serum 3.5 g/dL (3.2-5.0); Alkaline Phosphatase 69 U/L (45-117); Anion Gap 4 (5-15); BUN 17 mg/dL (7-18); BUN/Creat Ratio 16.2 RATIO (10-20); Bilirubin, Direct 0.15 mg/dL (0.00-0.30); Chloride 106 mmol/L (98-107); Creatinine, Serum 1.05 mg/dL (0.70-1.30); EST Glomerular Filtration Rate 79 mL/min (>60); Est Glom Filt Rate - Afr Amer 95 mL/min (>60); Estimated Creatinine Clearance 86.77 ml/min; Globulin 3.7 g/dL (2.2-4.2); Glucose 102 mg/dL (74-106); Lipase 35 U/L (13-75); Potassium 3.6 mmol/L (3.5-5.1); Protein, Total 7.2 g/dL (6.4-8.2); Sodium Level 135 mmol/L (136-145)
--- NOTE | 2024-01-06 16:18 | CT_ITS ---
We are attempting to reach an attending provider to discuss findings. An addendum with communication details will be sent when the communication is complete. STUDY: CT ABDOMEN AND PELVIS WITH CONTRAST REASON FOR EXAM: Male, 53 years old. RLQ Pain RADIATION DOSAGE (If Supplied By Facility): CTDIvol = ( 13.62 ) mGy, DLP = ( 974.19 ) mGycm TECHNIQUE: IV 100mL Isovue-370 was administered. Transaxial images were obtained from the dome of the diaphragm to the symphysis pubis in the portal venous phase. Multiplanar coronal and sagittal images were reformatted. Individualized Dose Optimization Techniques Were Used For This CT. COMPARISON: No relevant prior comparison study available FINDINGS: LOWER CHEST: Lung bases are clear. No cardiomegaly or pericardial effusion. LIVER: The liver is normal in size and shape with decreased attenuation. No focal mass. GALLBLADDER AND BILIARY TREE: The gallbladder is normally distended. No gallstones. No gallbladder wall thickening or edema. No pericholecystic fluid. No intra- or extrahepatic biliary ductal dilation. PANCREAS: No focal cystic or solid mass. SPLEEN: Normal size without focal cystic or solid mass. ADRENAL GLANDS: No nodules. KIDNEYS AND URETERS: Normal renal size and position. No hydronephrosis or nephrolithiasis. PERITONEUM: No ascites or free air. No other fluid collection. BOWEL: The stomach is unremarkable. Normal caliber small bowel. There is no obstruction. Abnormal appendix. The appendix measures 0.8 cm in diameter. Inflammatory changes are seen along the course of the appendix. The remainder of the colon shows no acute abnormality. Minimal diverticulosis without diverticulitis. LYMPH NODES: No enlarged mesenteric or retroperitoneal lymph nodes. VESSELS: The aorta is normal in caliber with mild atherosclerotic calcification. URINARY BLADDER: Unremarkable. REPRODUCTIVE ORGANS: No pelvic masses. ABDOMINAL WALL: No discrete abdominal or pelvic wall hernia. BONES: No lytic or blastic abnormality. CT/Abdomen/Pelvis W IV Cont ONLY IMPRESSION: Acute appendicitis. No free air or fluid collection. Hepatic steatosis. Electronically Signed: Rey Skinner MD at 16:30 EDT ,
[2024-01-06] MEDS: Piperacil/Tazobactam 4.5 GM in 0.9% Normal Saline (100mL MB+) 100 ML IV (17:01)
--- NOTE | 2024-01-06 17:24 | PCM.HP.STD ---
HPI - General General Date of Admission: 01/06/24 Date of Service: 01/06/24 Chief Complaint: Right lower quadrant pain HPI Narrative DEREK CERDA, is a 53 M who presents to the emergency room with right lower quadrant pain that started this morning and has persistent throughout the course of the day. He presented to the emergency department for further evaluation and treatment. He was seen by the ER staff and underwent a battery of laboratory testing. He had a elevated white blood cell count of around 14,000. CT scan was performed and showed findings consistent with appendicitis. Surgical consult was obtained. He denies any significant fevers or chills. He has never had pain in this location in the past. He has not had any previous abdominal surgeries [facility] Medical History Wears glasses Alcohol use High cholesterol Gastric reflux Non-smoker CPAP (continuous positive airway pressure) dependence Sleep apnea History of echocardiogram History of stress test Cardiology follow-up encounter Hyperlipidemia Chest pain Pre-syncope Essential hypertension Home Medications ?Medication ?Instructions ?Recorded ?Last Taken ?Type hydrochlorothiazide 12.5 mg tablet 12.5 mg PO DAILY 11/27/21 09/01/23 History lisinopril 40 mg tablet 40 mg PO DAILY #90 tabs 06/08/23 09/03/23 Rx multivitamin (Daily Multi-Vitamin 1 tab PO DAILY 09/01/23 Unknown History tablet) atorvastatin 10 mg tablet 10 mg PO DAILY #90 tabs 11/13/23 Unknown Rx loratadine 10 mg tablet 10 mg PO DAILY PRN 11/13/23 Unknown History Allergy/AdvReac Type Severity Reaction Status Date / Time No Known Allergies Allergy Verified 01/06/24 14:57 Family History Brother Hypertension Multiple sclerosis Mother Arthritis Father Hypertension Hyperlipidemia Sister Multiple sclerosis Surgical History Amputation finger (2005) H/O nasal septoplasty (2008) Social History household members: spouse current occupational status: employed Smoking Status: Never smoker alcohol intake: current alcohol intake frequency: a few times a week substance use type: does not use caffeine: Yes Type: coffee Number of servings: 2 Vital Signs Vital Signs Vital Signs: 01/06/24 14:57 01/06/24 17:00 01/06/24 17:04 Temperature 97.9 F 98.2 F Temperature Source Temporal Temporal Pulse Rate 87 73 73 Respiratory Rate 18 18 18 Blood Pressure 155/89 H 129/85 H 129/85 H Blood Pressure Mean 111 99 99 Blood Pressure Source Monitor Blood Pressure Location Right Arm Pulse Ox 94 97 98 Oxygen Delivery Method Room Air Room Air Room Air 01/06/24 17:10 Temperature 98.2 F Temperature Source Pulse Rate 78 Respiratory Rate 19 H Blood Pressure 129/85 H Blood Pressure Mean 99 Blood Pressure Source Blood Pressure Location Pulse Ox 98 Oxygen Delivery Method Weight Weight: 192 lb 3.889 oz Body Mass Index (BMI) 30.1 Physical Exam Const alert, oriented x3, no apparent distress and average body habitus General Appearance: cooperative and comfortable Orientation / Consciousness: awake, oriented to person, oriented to place and oriented to time HEENT normocephalic Eyes PERRL and EOMs intact bilaterally Chest Chest: symmetrical chest wall rise Resp normal respiratory effort and normal air movement Cardio regular rate and regular rhythm GI GI Narrative: Abdomen is soft and nondistended. He has mild to moderate tenderness to palpation in the right lower quadrant. Results Lab / Micro Data 01/06/24 15:20 01/06/24 15:20 Labs: Laboratory Results - last 24 hr 01/06/24 15:20: WBC 14.0 H, RBC 4.76, Hgb 14.5, Hct 42.5, MCV 89.3, MCH 30.5, MCHC 34.1, RDW Std Deviation 40.2, RDW Coeff of Simone 12.3, Plt Count 272, MPV 9.4, Immature Gran % (Auto) 0.400, Neut % (Auto) 78.2 H, Lymph % (Auto) 13.4 L, [place] % (Auto) 7.4, Eos % (Auto) 0.4, Baso % (Auto) 0.2, Absolute Neuts (auto) 10.9 H, Absolute Lymphs (auto) 1.88, Nucleated RBC % 0, Sodium 135 L, Potassium 3.6, Chloride 106, Carbon Dioxide 25.0, Anion Gap 4 L, BUN 17, Creatinine 1.05, Estim Creat Clear Calc 86.77, Est GFR (MDRD) Af Amer 95, Est GFR (MDRD) Non-Af 79, BUN/Creatinine Ratio 16.2, Glucose 102, Calcium 9.0, Total Bilirubin 0.50, Direct Bilirubin 0.15, AST 34, ALT 43, Alkaline Phosphatase 69, Total Protein 7.2, Albumin 3.5, Globulin 3.7, Lipase 35 01/06/24 15:26: Urine Color Yellow, Urine Clarity Clear, Urine pH 7.0, Ur Specific [place] 1.010, Urine Protein Negative, Urine Glucose (UA) Normal, Urine Ketones Negative, Urine Occult Blood Negative, Urine Nitrite Negative, Urine Bilirubin Negative, Urine Urobilinogen Normal, Ur Leukocyte Esterase Negative, Urine RBC 0 SEEN, Urine WBC 0 SEEN, Ur Squamous Epith Cells 0 SEEN, Urine Bacteria 0 SEEN, Urine Mucus 0 SEEN Imaging Radiology Impression Abdomen/Pelvis CT 01/06/24 16:18 IMPRESSION: Acute appendicitis. No free air or fluid collection. Hepatic steatosis. Electronically Signed: Rey Skinner MD at 16:30 EDT Reading Location ID and State: [facility] / [place] Tel , Service support , ADDENDUM: 01/06/24 1642 IMPRESSION: Acute appendicitis. No free air or fluid collection. Hepatic steatosis. N.B. : The above Results were Read Back by Rey Skniner MD to Roland Madsen DO, and understanding confirmed on 01/06/2024 16:35:50 (ET). Electronically Signed: Rey Skinner MD at 16:30 EDT , Assessment & Plan Assessment/Plan (1) Abdominal pain, acute: (2) Acute appendicitis: PLAN: Plan The patient is a 53-year-old male who presented with a 1 day history of right lower quadrant pain. Clinically and radiographically this is consistent with acute appendicitis without complication. IV Zosyn was administered in the emergency room. I have offered him a laparoscopic appendectomy as treatment. We discussed the risks and benefits of surgery and he wishes to proceed. Specifically we discussed risk for bleeding, infection, anesthesia risks and risk for other injury secondary to laparoscopic surgery. All questions and concerns were addressed from the patient as well as his . We also discussed postoperative instructions and care. Surgery will begin once in operating room becomes available Charges/Coding Visit Charges OBSV E&M: 69999 Observ/hosp same date L2
--- NOTE | 2024-01-06 17:41 | PRE.ANES_ITS ---
ASA Classification* ASA Classification ASA Classification: 2 and E Assessment & Plan Anesthesia* Anesthesia Assessment Anesthesia Assessment: Discussed sedation and/or anesthesia options, risks, benefits, and alternatives with patient/parents/legal guardian/POA. Questions invited. The patient/parents/legal guardian/POA seems to understand and agrees to proceed with anesthesia plan. Reviewed the physical assessment, medical history, allergy history and patient home medications list prior to surgery/procedure/anesthetic and documented any changes. Performed airway and anesthesia risk assessments. Anesthesia Type Anesthesia Type: General Anesthesia Focused Assessment* Temperature: 98.2 F Pulse Rate: 78 Blood Pressure: 129/85 Respiratory Rate: 19 Pulse Ox: 98 Airway Assessment Mouth opens: >3 cm Mallampati Score: II Focused Labs Anesthesia Preop lab: CBC WBC 14.0 K/mm3 (4.4-11.0) H 01/06/24 15:20 RBC 4.76 M/mm3 (4.6-6.2) 01/06/24 15:20 Hgb 14.5 g/dL (13.0-16.5) 01/06/24 15:20 Hct 42.5 % (40-54) 01/06/24 15:20 Plt Count 272 K/mm3 (150-450) 01/06/24 15:20 CHEMISTRY Potassium 3.6 mmol/L (3.5-5.1) 01/06/24 15:20 Sodium 135 mmol/L (136-145) L 01/06/24 15:20 BUN 17 mg/dL (7-18) 01/06/24 15:20 Creatinine 1.05 mg/dL (0.70-1.30) 01/06/24 15:20 Glucose 102 mg/dL (74-106) 01/06/24 15:20 TSH 0.64 uIU/mL (0.358-3.74) 09/07/23 06:36 COAG PT 12.6 SECONDS (11.7-14.9) 10/15/18 09:30 Pre-Assessment Diagnosis/Proposed Procedure Planned Operative Procedure(s): laproscopic appendectomy Anesthesia History 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 When Was Last Pacemaker Check QUESTION #4 FULL TEXT: You/Your Family Experience fever (hyperthermia) with Anesthesia Last Oral Intake Last Oral intake: Last Oral Intake NPO since 12:15 01/06/24 17:04 Meds taken in AM with sips of water? Meds patient instructed to take am of surgery PONV PONV - sandfill operator: PONV - sandfill operator Female HX of Motion Sickness HX of N/V After Surgery Non-Smoker Duration of Surgery greater than 60 minutes Number of Risk Factors PONV Score Height & Weight Height & Weight: Anesthesia: Height & Weight Height 5 ft 7 in 01/06/24 17:04 Weight: 87.2 kg 01/06/24 17:04 Body Mass Index (BMI) 30.1 01/06/24 17:04 Respiratory Assessment Respiratory Assessment - sandfill operator: Respiratory Tract Infection Hx - sandfill operator Hx Respiratory Tract Infection No 09/03/23 08:25 STOP Sleep Apnea STOP Sleep Apnea - sandfill operator: STOP Sleep Apnea - sandfill operator Hx Hypertension Yes: CONTROLLED ON MED 09/03/23 08:25 Hx Sleep Apnea Yes 01/06/24 17:04 CPAP No: used a cpap, but does 01/06/24 17:04 not currently BIPAP No 01/06/24 17:04 Do you snore loudly (louder than talking or can be heard Do you often feel tired/ fatigued/ sleepy during daytime? Has anyone observed you stop breathing during sleep? STOP Results Positive 01/06/24 17:04 QUESTION #5 FULL TEXT : Do you snore loudly (louder than talking or can be heard through closed doors)? 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 Specify any problems Hx of Preganancy in last 3 Months Nurse Filling Out Transfusion & Questions: Date: Time: Patient unable to answer at this time (ie. confused, unrespo /Reproduction History /Reproductive History - sandfill operator: /Reproductive Hx- sandfill operator Hx Now Gestational Age (in weeks): EDC: Hx Hx Para Hx Section SAB PFSH Medical History Wears glasses Alcohol use High cholesterol Gastric reflux Non-smoker CPAP (continuous positive airway pressure) dependence Sleep apnea History of echocardiogram History of stress test Cardiology follow-up encounter Hyperlipidemia Chest pain Pre-syncope Essential hypertension Home Medications ?Medication ?Instructions ?Recorded ?Last Taken ?Type hydrochlorothiazide 12.5 mg tablet 12.5 mg PO DAILY 11/27/21 09/01/23 History lisinopril 40 mg tablet 40 mg PO DAILY #90 tabs 06/08/23 09/03/23 Rx multivitamin (Daily Multi-Vitamin 1 tab PO DAILY 09/01/23 Unknown History tablet) atorvastatin 10 mg tablet 10 mg PO DAILY #90 tabs 11/13/23 Unknown Rx loratadine 10 mg tablet 10 mg PO DAILY PRN 11/13/23 Unknown History Allergy/AdvReac Type Severity Reaction Status Date / Time No Known Allergies Allergy Verified 01/06/24 14:57 Family History Brother Hypertension Multiple sclerosis Mother Arthritis Father Hypertension Hyperlipidemia Sister Multiple sclerosis Surgical History Amputation finger (2005) H/O nasal septoplasty (2008) Social History household members: spouse current occupational status: employed Smoking Status: Never smoker alcohol intake: current alcohol intake frequency: a few times a week substance use type: does not use caffeine: Yes Type: coffee Number of servings: 2 Review of Systems (Anesthesia) ROS Narrative System reviewed and no additional complaints, except as documented.
--- NOTE | 2024-01-06 18:50 | APP_PTH ---
PATIENT: DEREK CERDA LOC: [facility] – [place], [place] U#:[id number] AGE/SX: 53/M ROOM: RE01/06/[address]: Dr. Justin Lee MD : 1970 BED: DIS: 01/06/2024 SPEC #: [id number] RECD: 01/07/24 08:48 STATUS: JAMEL RDORIGUEZ #: [id number] CRESENCIO: 01/06/24 18:[address]: Justin Lee DEPT: SURGICAL PATHOLOGY RECD BY: Escobar Friedman ENTERED: 01/07/24 10:05 SP TYPE: APPENDIX OTHR DR: MD Dr. Roland Sandhu DO Tissues: Appendix, NOS Procedures: Surgery Specimen Level III HEADER OPERATION: Laparoscopic appendectomy PRE-OP DIAGNOSIS: Abdominal pain, acute, acute appendicitis TISSUE SUBMITTED: Appendix MICROSCOPIC DIAGNOSIS Appendix, appendectomy: Acute appendicitis and periappendicitis. SJ.mr 01/08/2024 MICROSCOPIC DESCRIPTION Slides are reviewed. GROSS DESCRIPTION Received in fixative is one container labeled with the patient's name and designated appendix. The specimen consists of appendix measuring 4.5 cm in length and up to 0.6 cm in diameter. The attached periappendiceal adipose tissue measures up to 1.5 cm in width. The serosa surface is congested and covered with lucero purulent exudate. No obvious perforation is identified. The lumen is filled with fecal material. No fecalith is identified. Rental Clerk sections are submitted in one cassette. / SJ: 01/07/2024 TC:2 CPT: 01651
[2024-01-06] MEDS: Bupiv/Epi 0.25% 30 ML Vial (19:10)
--- NOTE | 2024-01-06 19:36 | OP.PCM_ITS ---
Problems Associated Problem List Diagnoses (1) Acute appendicitis: Report of Operation Date of Procedure: 01/06/24 Pre-Operative Diagnosis: Acute appendicitis Post-Operative Diagnosis: Acute appendicitis Surgery/Procedure Performed:: Laparoscopic appendectomy Description of Surgical Findings:: Mild acute appendicitis Surgeon: Justin Lee Type of Anesthesia: General Anesthesiologist: Anthony Pinzon Specimen's removed: Appendix Drains: None Estimated Blood Loss (mL): 10 mL Description of Procedure: The patient is a 53-year-old male who presents to the emergency room earlier today with right lower quadrant pain x 1 day. He was seen evaluate by the ER staff he was found to have a white count of 14,[address] scan showed acute appendicitis. Surgery was consulted. I recommended a laparoscopic appendectomy as treatment. We discussed the details of the planned procedure including the risks benefits and alternatives. He wished to proceed. He was brought to the operating room today following informed consent. Antibiotics were given preoperatively in the emergency room. He was placed supine the operative table with arms initially outstretched on arm boards. General anesthesia was then induced. His left arm was comfortably tucked at his side and his right arm was left outstretched on an armboard. His abdomen is then clipped prepped and draped in the usual sterile manner. A 5 mm incision was made just below the umbilicus for which a 5 mm trocar was placed optically. This was placed without incident. Once in place the abdomen send fully insufflated with CO2 gas. Next a 5 mm trocar was placed in the left lower quadrant under direct visualization. This was placed without incident. A 12 mm trocar was then placed in the left upper quadrant also under direct visualizatio n. The right lower quadrant was then inspected. The thickened inflamed appendix was visualized. This was not ruptured or perforated. The appendix was grasped in its midportion with a bowel grasper. The base of the appendix was identified. A [place] dissector was then used to create a small window in the mesentery at the base of the appendix. A BARBRA stapler was fired across the appendix flush with the cecum. Next another BARBRA staple load was used to transect the mesoappendix. This was a vascular staple load. After this the appendix was then free. It was then placed into a bag and brought out through the 12 mm trocar site. The right lower quadrant was then copiously irrigated. Hemostasis was excellent. Fluid was suctioned out. The fascia at the 12 mm trocar site was then closed using 0 PDS with a fascial closure device. Local anesthetic was injected into each of the incisions after the trocars were removed. A total of 20 cc of local anesthetic were injected. 5-0 Vicryl was then used to close the skin incisions. Skin glue was applied as dressing. He was awake from anesthesia and taken to the PACU in good condition Complications None Admit VTE Documentation VTE Mechan Device Prophylaxis: SCD's Procedures Digestive [id number]-49xxx: [id number] Laparoscopy appendectomy
--- NOTE | 2024-01-06 19:40 | PCM.POST.ANE ---
Anesthesia: Postop Eval I Current Vital Signs Temperature: 99 F Pulse Rate: 74 Blood Pressure: 113/59 Respiratory Rate: 19 Pulse Ox: 99 Assessment Airway patent: Yes Spontaneous unlabored respirations: Yes nausea: No Vomiting: No Anesthesia Complication: No Fluid Hydration Crystalloid volume administer (ml): 350 Total IV fluid infused: 350 Progress Note Anesthesia document: Postop Eval 1 completed: Yes
--- NOTE | 2024-01-06 19:43 | PCM.POSTANE2 ---
Anesthesia Postop Eval I Sum Postop Eval Completion status Anesthesia document: Postop Eval 1 completed: Yes Anesthesia Postop Eval I Summary Anesthesia Postop Eval I Summary: Anesthesia Postop Eval I: Assessment Summary Airway patent Yes 01/06/24 19:40 Spontaneous unlabored Yes 01/06/24 19:40 respirations Mental status nausea No 01/06/24 19:40 Vomiting No 01/06/24 19:40 Anesthesia Postop Eval I: Fluid Summary Crystalloid volume administer 350 01/06/24 19:40 (ml) Colloids volume administered ( ml) Blood Product volume administered (ml) Total IV fluid infused 350 01/06/24 19:40 Anesthesia Postop Eval I: Summary Notes Anesthesia Complication No 01/06/24 19:40 Anesthesia Complication Comment: Post-operative progress note Anesthesia: Postop Eval II Evaluation Mental status: Awake Pain Level: 0 nausea: No Vomiting: No
--- NOTE | 2024-01-06 19:45 | DCINST_ITS ---
Discharge Instructions Diet Discharge Diet: Light diet - advance as tolerated Activity Discharge Activity: Return to Normal Activity and - (Avoid lifting more than 20 pounds for 3 to 4 weeks) Dressing / Incision Call your doctor if your incision/area has: Continuous Slow Oozing, Sudden Increased Bleeding, Increased Redness and Foul Smelling Discharge Call your doctor if you observe: Fever of 101 or Higher and Uncontrolled pain Cleanse incision/area with: Soap & Water Follow Up Care Please Follow Up With: Justin Lee MD When: 2 weeks Test Results: Test results from this visit will be discussed in further detail at your follow- up appointment, if applicable. Discharge Plan Admission Attending Provider: Justin Lee Primary Care Provider: George Meier Instructions Print Language: Chinese Discharge Orders/Prescriptions Prescriptions: No Action hydrochlorothiazide 12.5 mg tablet 12.5 mg PO DAILY loratadine 10 mg tablet 10 mg PO DAILY PRN atorvastatin 10 mg tablet 10 mg PO DAILY Qty: 90 3RF multivitamin [Daily Multi-Vitamin] Tablet 1 tab PO DAILY lisinopril 40 mg tablet 40 mg PO DAILY Qty: 90 4RF Referrals / Follow Up: George Meier MD [Primary Care Provider] - Disposition Disposition (needs filled in before D/C Order can be placed): Home, Self Care
--- NOTE | 2024-01-06 19:51 | DCINST_ITS ---
Discharge Instructions Diet Discharge Diet: Light diet - advance as tolerated Dressing / Incision Call your doctor if your incision/area has: Continuous Slow Oozing, Sudden Increased Bleeding, Increased Redness and Foul Smelling Discharge Call your doctor if you observe: Fever of 101 or Higher and Uncontrolled pain Cleanse incision/area with: Soap & Water Follow Up Care Please Follow Up With: Justin Lee MD Test Results: Test results from this visit will be discussed in further detail at your follow- up appointment, if applicable. Discharge Plan Admission Attending Provider: Justin Lee Primary Care Provider: George Meier Instructions Print Language: Mohawk Discharge Orders/Prescriptions Prescriptions: New oxycodone-acetaminophen [Percocet] 5-325 mg tablet 1 tab PO Q8H PRN (Reason: pain) 5 Days Qty: 12 0RF Continued hydrochlorothiazide 12.5 mg tablet 12.5 mg PO DAILY loratadine 10 mg tablet 10 mg PO DAILY PRN atorvastatin 10 mg tablet 10 mg PO DAILY Qty: 90 3RF multivitamin [Daily Multi-Vitamin] Tablet 1 tab PO DAILY lisinopril 40 mg tablet 40 mg PO DAILY Qty: 90 4RF Referrals / Follow Up: George Meier MD [Primary Care Provider] - Disposition Disposition (needs filled in before D/C Order can be placed): Home, Self Care
[2024-01-06] MEDS: Lactated Ringers 1,000 ML 15 ML IV (20:00)
[2024-01-06] MEDS: Acetaminophen 325 MG Tablet PO (20:38)
[2024-01-06] MEDS: oxyCODONE 5 MG Tablet PO (20:38)
== END 2024-01-06 21:10 | disposition home or self-care (01) ==
LOC: ED 16:53 → SDC 16:59 → ACINP 17:00
PROVIDERS: Emergency Provider Emergency Medicine; PCP Family Medicine; Referring Provider Emergency Medicine; Visit Provider Surgery
PROC: 0DTJ4ZZ Resection of Appendix, Percutaneous Endoscopic Approach (ICD-10-PCS; CPT 44970; principal; 2024-01-06 18:30)
DX: K35.80 Unspecified acute appendicitis (principal); I10 Essential (primary) hypertension; K76.0 Fatty (change of) liver, not elsewhere classified; E78.00 Pure hypercholesterolemia, unspecified; K21.9 Gastro-esophageal reflux disease without esophagitis
CPT/HCPCS: 44970; 00840; 74177; 80048; 80076; 81001; 83690; 85025; 88304; 99284; J7030; J7120; Q9967; A4216; J2405

== ENCOUNTER → 2024-08-03 | Outpatient (CLI) | payer OTHER, SELFPAY ==
[2024-08-03 15:56] LABS: ALB/GLOB Ratio 1.4 RATIO (0.9-2.4); AST(SGOT) 35 U/L (<=37); Alanine Aminotransfer ALT/SGPT 48 U/L (<=46); Albumin, Serum 4.2 g/dL (3.5-5.0); Alkaline Phosphatase 77 U/L (40-129); Anion Gap 13 (5-15); BUN 16 mg/dL (4-19); BUN/Creat Ratio 17.4 RATIO (10-20); Calcium,Total 9.5 mg/dL (7.6-11.0); Carbon Dioxide 21.3 mmol/L (21.0-32.0); Chloride 105 mmol/L (98-108); Cholesterol 170 mg/dL (<=200); Creatinine, Serum 0.93 mg/dL (0.70-1.20); EST Glomerular Filtration Rate 98 (>60); Globulin 3.1 g/dL (2.2-4.2); Glucose 108 mg/dL (70-99); High Density Lipoprotein 38 mg/dL; Low Density Lipoprotein Calc. 94 mg/dL; PSA,Total - Annual Screen 0.97 ng/mL (0.02-4.00); Potassium 4.3 mmol/L (3.3-5.1); Protein, Total 7.3 g/dL (5.9-8.4); Sodium Level 138 mmol/L (133-145); Triglycerides 190 mg/dL; Very Low Density Lipoprotein 38 mg/dL (5-40); cholesterol:hdl ratio screen 4.45
== END | disposition home or self-care (01) ==
LOC: MFPLAB 08:37
PROVIDERS: PCP Family Medicine; Referring Provider Family Medicine; Visit Provider Family Medicine
DX: E78.5 Hyperlipidemia, unspecified (principal); Z12.5 Encounter for screening for malignant neoplasm of prostate
CPT/HCPCS: 36415; 80053; 80061; 84153; G0103

== ENCOUNTER → 2024-12-13 | Outpatient (CLI) | payer OTHER, SELFPAY ==
--- OUTSIDE RECORDS SUMMARY | 2024-12-13 08:00 | XMS RPT_ITS | CCD ---
Author Organization [facility] CliniSyok Care Team Providers Care Boner Meat Name Role Phone Dr. Javed Meier Primary Care Provider Dr. Javed Meier Referring Provider Dia KING MAKER, KING MAKER-Raphael Rasheed Attending Provider Dr. Bonilla Lujan Attending Provider Dr. Bonilla Lujan Referring Provider [phone] Le, Dr. Crystal Other Provider Dr. Javed Meier Primary Care Provider [phone] Dr. Javed Meier Referring Provider ESE Juarez Attending Provider Wes KING MAKER, IBIS Floyd Attending Provider Dr. Javed Meier Primary Care Provider Dr. Javed Meier Referring Provider ESE Hadley Attending Provider Dr. Javed Meier Primary Care Provider Dr. Javed Meier Referring Provider ESE Hadley Attending Provider Dr. Kaley Meier Primary Care Provider [phone] Radhika Rivera Attending Provider Unavailable Dr. Kaley Meier Referring Provider Dr. Jj Kovacs Attending Provider Dr. Jj Kovacs Other Provider Dr. Kaley Meier MD Primary Care Provider Hardeep PEREZ, Dr. Vazquez Attending Provider Dr. Kaley Meier MD Referring Provider Kaley Meier Attending Unavailable Lenney, Kaley Referring [facility]available Le, Bonilla Attending Unavailable Ranney, Christopher Referring Unavailable Ranney, Christopher Primary Care Unavailable Le, Bonilla Attending Unavailable Ranney, Kaley Referring Unavailable [facility] Unavailable Ranney, Christopher Referring Unavailable [facility] Unavailable Jj Kovacs Consulting Unavailable Bethanie, Jj Attending Unavailable Roland Madsen Referring [facility] Unavailable Parish Lee Consulting Unavailable Parish Lee Attending Unavailable Hardeep, Ashwiner Referring Unavailable Ranney, Christopher Primary Care Unavailable Parish Lee Attending Unavailable Hardeep, Christteteer Referring Unavailable [facility] Unavailable Bethanie, Jj Attending Unavailable Jesus, Parish Torres Attending Unavailable Roland Madsen Referring Unavailable [facility], [facility] Unavailable Ranney, Christopher Referring Unavailable [facility] Unavailable Hardeep, Kaley Attending Unavailable Hardeep PEREZ, Dr. Vazquez Primary Care Provider Dr. Kaley Meier MD Referring Provider Parish Dominguez Attending Provider Medications Current Medications Medication Drug Class(es) Dates Sig (Normalized) Sig (Original) ciprofloxacin 500 mg oral tablet (2 sources) Quinolone Antimicrobial Start: 03-13-20 23 take 1 tablet by mouth twice daily Ciprofloxacin Hcl (Cipro) 500 mg tablet Active 500 MG PO TWICE A DAY March 13, 2023 12:00am hydroCHLOROthiazide 12.5 mg oral tablet (16 sources) Thiazide Diuretic Start: 11-28-19 22 take 1 tablet by mouth once daily Hydrochlorothiazide 12.5 mg tablet Active 12.5 mg PO DAILY November 27, 2021 12:00am Start: 10-15-2018 End: 11-27-2021 Hydrochlorothiazide 25 MG ta blet Discontinued 12.5 mg PO DAILY 30 0 October 15, 2018 12:00am November 27, 2021 11:10am Start: 10-15-2018 End: 11-27-2021 take 12.5 mg by mouth once daily Hydrochlorothiazide Discontinued 12.5 MG PO DAILY 30 October 15, 2018 12:00am November 27, 2021 11:10am loratadine 10 mg oral tablet (10 sources) Start: 11-13-2023 take 1 tablet by mouth once daily as needed Loratadine 10 mg tablet Active 10 mg PO DAILY as needed November 13, 2023 12:00am Start: 10-15-2018 End: 09-01-2023 take 1 tablet by mouth once daily as needed Loratadine 10 MG tablet Discontinued 10 mg PO DAILY as needed for Allergies October 15, 2018 12:00am September 01, 2023 2:09pm Multivitamin (Daily Multi-Vitamin) tablet (3 sources) Start: 09-01-2023 Multivitamin ( Daily Multi-Vitamin) tablet Active 1 {tbl} PO DAILY September 01, 2023 12:00am Start: 09-01-2023 take 1 tablet by avril once daily Multivitamin (Daily Multi-Vitamin) tablet Active 1 TABLET PO DAILY September 01, 2023 12:00am Completed/Discontinued Medications Medication Drug Class(es) Dates Sig (Normalized) Sig (Original) acetaminophen 325 mg / oxyCODONE hydrochloride 5 mg oral tablet (2 sources) Opioid Agonist Start: 01-06-2024 End: 01-19-2024 Oxycodone-Acetamin ophen (Percocet) 5-325 mg tablet Discontinued 1 {tbl} PO Q8H as needed for pain 12 5 0 January 06, 2024 January 19, 2024 2:16pm Acute appendicitis Unspecified acute appendicitis aspirin 81 mg chewable tablet (8 sources) Platelet Aggregation Inhibitor, Nonsteroidal Anti-inflammatory Drug Start: 05-25-2020 End: 04-30-2021 take 1 tablet by mouth once daily Aspirin 81 MG tablet,chewable Discontinued 81 mg PO DAILY@0800 May 25, 2020 1:00am April 30, 2021 12:10pm atorvastatin 10 mg oral tablet (20 sources) HMG-CoA Reductase Inhibitor Start: 11-27-2021 End: 05-31-2024 take 1 tablet by mouth once daily Atorvastatin 10 mg tablet Discontinued 10 mg PO DAILY 90 3 November 13, 2023 9:57am May 31, 2024 3:35pm lisinopril 40 mg oral tablet (20 sources) Angiotensin Converting Enzyme Inhibitor Start: 05-01-2021 End: 07-19-2024 take 1 tablet by mouth once daily Lisinopril 40 mg tablet Discontinued 40 mg PO DAILY 90 4 June 08, 2023 3:48pm July 19, 2024 3:13pm Start: 04-30-2021 End: 05-01-2021 take 3 tablets by mouth once daily Lisinopril 10 mg tablet Discontinued 30 mg PO DAILY April 30, 2021 12:10pm May 01, 2021 3:39pm Start: 04-30-2021 End: 05-01-2021 take 30 mg by mouth once daily Lisinopril Discontinued 30 MG PO DAILY April 30, 2021 12:10pm May 01, 2021 3:39pm Start: 07-26-2017 End: 04-30-2021 take 1 tablet by mouth once daily Lisinopril 10 tablet Discontinued 40 mg PO DAILY July 26, 2017 12:00am April 30, 2021 12:10pm Problems Active Problems Problem Classification Problem Date Documented Da te Episodic/Chronic Abdominal pain (4 sources) Acute abdominal pain; Translations: [Unspecified abdominal pain] Onset: 02-07-2024 01-06-2024 Episodic Appendicitis and other appendiceal conditions (3 sources) Acute appendicitis; Translations: [Unspecified acute appendicitis] Onset: 02-07-2024 01-06-2024 Episodic Disorders of lipid metabolism (11 sources) Hyperlipidemia; Translations: [Hyperlipidemia, unspecified] Onset: 08-09-2024 Chronic Essential hypertension (17 sources) Essential hypertension; Translations: [Essential (primary) hypertension] Chronic Comment on above: CONTROLLED ON MED Genitourinary symptoms and ill-defined conditions (7 sources) Increased frequency of urination; Translations: [Frequency of micturition] 05-18-2022 Episodic Nonspecific chest pain (9 sources) Chest pain; Translations: [Chest pain, unspecified] Episodic Other screening for suspected conditions (not mental disorders or infectious disease) (6 sources) Patient encounter status; Translations: [Encounter for screening for malignant neoplasm of colon] Onset: 09-11-2023 07-13-2023 Episodic Other upper respiratory infections (6 sources) Acute pharyngitis; Translations: [Acute pharyngitis, unspecified] 02-06-2023 Episodic Syncope (7 sources) Near syncope; Translations: [Syncope and collapse] 05-15-2022 Episodic Urinary tract infections (2 sources) Urinary tract infection, site not specified; Translations: [Urinary tract infection, site not specified] 03-13-2023 Episodic Past or Other Problems Problem Classification Problem Date Documented Da te Episodic/Chronic Other nervous system disorders (1 source) Paresthesia of skin; Translations: [Paresthesia of skin] Onset: 09-11-2023 Episodic Results Test Name Value Interpretation Reference Range Facility Anion gap in Serum or Plasma Ordered By: Kaley Meier on 08-03-2024 Anion gap [Moles/Vol] 13 mmol/L - [facility] BUN/creatinine ratioOrdered By: Kaley Meier on 08-03-2024 Urea nitrogen/Creatinine [Mass ratio] 17.4 mg/mg 02-13 [facility] Bilirubin, totalOrdered By: Kaley Meier on 08-03-2024 Bilirubin [Mass/Vol] 0.40 mg/dL 0.00-1.30 [facility] Calculated very low density lipoprotein (VLDL) cholesterol measurementOrdered By: Kaley Meier on 08-03-2024 VLDL Cholesterol 38 mg/dL 5-40 [facility] Carbon dioxide, total [Moles /volume] in Central venous bloodOrdered By: Kaley Meier on 08-03-2024 CO2 [Moles/Vol] 21.3 mmol/L 21.0-32.0 [facility] Chloride assayOrdered By: Cristy Meier on 08-03-2024 Chloride [Moles/Vol] 105 mmol/L 98-108 [facility] Comprehensive Metabolic Prof ilon 08-03-2024 Albumin [Mass/Vol] 4.2 g/dL Normal 3.5-5.0 [facility] Comment on above: Order Comment: Order Date: 02/04/24Order Info: [id number] - CMPOrder Info: [id number] - LIPIDOrder Info: [id number] - PSA Performed By: #### L 500.4050, L501.9910, L500.4100 ####[facility] [address] [place], [address] Albumin/Globulin [Mass ratio] 1.4 {ratio} Normal 0.9-2.4 [facility] Comment on above: Order Comment: Order Date: 02/04/24Order Info: [id number] - CMPOrder Info: [id number] - LIPIDOrder Info: [id number] - PSA Performed By: #### L 500.4050, L501.9910, L500.4100 ####[facility] [address] [place], [address] ALK PHOS 77 U/L Normal 40-129 [facility] Comment on above: Order Comment: Order Date: 02/04/24Order Info: [id number] - CMPOrder Info: [id number] - LIPIDOrder Info: [id number] - PSA Performed By: #### L 500.4050, L501.9910, L500.4100 ####[facility] [address] [place], [address] ALT [Catalytic activity/Vol] 48 U/L High <=46 [facility] Comment on above: Order Comment: Order Date: 02/04/24Order Info: [id number] - CMPOrder Info: [id number] - LIPIDOrder Info: [id number] - PSA Performed By: #### L 500.4050, L501.9910, L500.4100 ####[facility] [address] [place], [address] AST [Catalytic activity/Vol] 35 U/L Normal <=37 [facility] Comment on above: Order Comment: Order Date: 02/04/24Order Info: [id number] - CMPOrder Info: [id number] - LIPIDOrder Info: [id number] - PSA Performed By: #### L 500.4050, L501.9910, L500.4100 ####[facility] [address] [place], [address] Bilirubin [Mass/Vol] 0.40 mg/dL Normal 0.00-1.30 [facility] Comment on above: Order Comment: Order Date: 02/04/24Order Info: [id number] - CMPOrder Info: [id number] - LIPIDOrder Info: [id number] - PSA Performed By: #### L 500.4050, L501.9910, L500.4100 ####[facility] [address] [place], [address] BUN/CRE 17.4 RATIO Normal 10-20 [facility] Comment on above: Order Comment: Order Date: 02/04/24Order Info: [id number] - CMPOrder Info: [id number] - LIPIDOrder Info: [id number] - PSA Performed By: #### L 500.4050, L501.9910, L500.4100 ####[facility] [address] [place], [address] Calcium [Mass/Vol] 9.5 mg/dL Normal 7.6-11.0 [facility] Comment on above: Order Comment: Order Date: 02/04/24Order Info: [id number] - CMPOrder Info: [id number] - LIPIDOrder Info: [id number] - PSA Performed By: #### L 500.4050, L501.9910, L500.4100 ####[facility] [address] [place], [address] Chloride [Moles/Vol] 105 mmol/L Normal 98-108 [facility] Comment on above: Order Comment: Order Date: 02/04/24Order Info: [id number] - CMPOrder Info: [id number] - LIPIDOrder Info: [id number] - PSA Performed By: #### L 500.4050, L501.9910, L500.4100 ####[facility] [address] [place], [address] CO2 [Moles/Vol] 21.3 mmol/L Normal 21.0-32.0 [facility] Comment on above: Order Comment: Order Date: 02/04/24Order Info: [id number] - CMPOrder Info: [id number] - LIPIDOrder Info: [id number] - PSA Performed By: #### L 500.4050, L501.9910, L500.4100 ####[facility] [address] [place], [address] Creatinine [Mass/Vol] 0.93 mg/dL Normal 0.70-1.20 [facility] Comment on above: Order Comment: Order Date: 02/04/24Order Info: [id number] - CMPOrder Info: [id number] - LIPIDOrder Info: [id number] - PSA Performed By: #### L 500.4050, L501.9910, L500.4100 ####[facility] [address] [place], [address] GAP 13 Normal 5-15 [facility] Comment on above: Order Comment: Order Date: 02/04/24Order Info: [id number] - CMPOrder Info: - LIPIDOrder Info: [id number] - PSA Performed By: #### L 500.4050, L501.9910, L500.4100 ####[facility] [address] [place], [address] GFR/1.73 sq M.predicted among non-blacks MDRD (S/P/Bld) [Vol rate/Area] 98 mL/min/{1.73_m2} Normal >60 [facility] Comment on above: Order Comment: Order Date: 02/04/24Order Info: [id number] - CMPOrder Info: [id number] - LIPIDOrder Info: [id number] - PSA Result Comment: mL/m in/1.73m2 CKD-EPI Creatinine Equation (2020) Performed By: #### L 500.4050, L501.9910, L500.4100 ####[facility] [address] [place], [address] Globulin (S) [Mass/Vol] 3.1 g/dL Normal 2.2-4.2 [facility] Comment on above: Order Comment: Order Date: 02/04/24Order Info: [id number] - CMPOrder Info: [id number] - LIPIDOrder Info: [id number] - PSA Performed By: #### L 500.4050, L501.9910, L500.4100 ####[facility] [address] [place], [address] Glucose [Mass/Vol] 108 mg/dL High 70-99 [facility] Comment on above: Order Comment: Order Date: 02/04/24Order Info: [id number] - CMPOrder Info: [id number] - LIPIDOrder Info: [id number] - PSA Performed By: #### L 500.4050, L501.9910, L500.4100 ####[facility] [address] [place], [address] Potassium [Moles/Vol] 4.3 mmol/L Normal 3.3-5.1 [facility] Comment on above: Order Comment: Order Date: 02/04/24Order Info: [id number] - CMPOrder Info: [id number] - LIPIDOrder Info: [id number] - PSA Performed By: #### L 500.4050, L501.9910, L500.4100 ####[facility] [address] [place], [address] Sodium [Moles/Vol] 138 mmol/L Normal 133-145 [facility] Comment on above: Order Comment: Order Date: 02/04/24Order Info: [id number] - CMPOrder Info: [id number] - LIPIDOrder Info: [id number] - PSA Performed By: #### L 500.4050, L501.9910, L500.4100 ####[facility] [address] [place], [address] T PROT 7.3 g/dL Normal 5.9-8.4 [facility] Comment on above: Order Comment: Order Date: 02/04/24Order Info: [id number] - CMPOrder Info: [id number] - LIPIDOrder Info: [id number] Performed By: #### L 500.4050, L501.9910, L500.4100 ####[facility] [address] [place], [address] Urea nitrogen [Mass/Vol] 16 mg/dL Normal 4-19 [facility] Comment on above: Order Comment: Order Date: 02/04/24Order Info: [id number] - CMPOrder Info: - LIPIDOrder Info: [id number] - PSA Performed By: #### L 500.4050, L501.9910, L500.4100 ####[facility] [address] [place], [address] GFR/1.73 sq M.predicted kiki g non-blacks MDRD (S/P/Bld) [Vol rate/Area]Ordered By: Kaley Meier on 08-03-2024 Estimated GFR (MDRD) Non-Af Amer 98 >60 [facility] Comment on above: mL/min/1.73m2 CKD-EP I Creatinine Equation (2020) LDL calc ser/plasOrdered By: Kaley Meier on 08-03-2024 LDL Cholesterol, Calculated 94 mg/dL [facility] Comment on above: Fkuylaljgz=729-010 m g/dL & Higher Hpkr=936 mg/dL or greater Laboratory - Chemistry and C hemistry - challengeOrdered By: Kaley Meier on 08-03-2024 AST [Catalytic activity/Vol] 35 U/L <38 [facility] Lipid Profileon 08-03-2024 CHOL:HDL 4.45 Normal [facility] Comment on above: Order Comment: Order Date: 02/04/24Order Info: [id number] - CMPOrder Info: [id number] - LIPIDOrder Info: [id number] - PSA Performed By: #### L 500.4050, L501.9910, L500.4100 ####[facility] [address] [place], [address] Cholesterol [Mass/Vol] 170 mg/dL Normal <=200 [facility] Comment on above: Order Comment: Order Date: 02/04/24Order Info: 07 - CMPOrder Info: [id number] - LIPIDOrder Info: [id number] - PSA Result Comment: Chol esterol level, Desirable <200 mg/dL Borderline high cholesterol 200-239 mg/dL High cholesterol >=240 mg/dL Recommendations of the NCEP Adult Treatment Panel for the following risk-cutoff thresholds for the [place] Citizen population. Performed By: #### L 500.4050, L501.9910, L500.4100 ####[facility] [address] [place], [address] Cholesterol in HDL [Mass/Vol] 38 mg/dL Low [facility] Comment on above: Order Comment: Order Date: 02/04/24Order Info: [id number] - CMPOrder Info: [id number] - LIPIDOrder Info: [id number] - PSA Result Comment: Jia onal Cholesterol Education Program (NCEP) guidelines: <40 mg/dL: Low HDL-cholesterol (major risk factor for CHD) >= 60 mg/dL: High HDL-cholesterol (negative risk factor for CHD) HDL-cholesterol is affected by a number of factors, e.g. smoking, exercise, hormones, sex and age. Performed By: #### L 500.4050, L501.9910, L500.4100 ####[facility] [address] [place], [address] Cholesterol in LDL [Mass/Vol] 94 mg/dL Normal [facility] Comment on above: Order Comment: Order Date: 02/04/24Order Info: 07 - CMPOrder Info: [id number] - LIPIDOrder Info: [id number] - PSA Result Comment: Bord rbfoot=456-972 mg/dL Higher Jwku=078 mg/dL or greater Performed By: #### L 500.4050, L501.9910, L500.4100 ####[facility] [address] [place], [address] Cholesterol in VLDL [Mass/Vol] 38 mg/dL Normal 5-40 [facility] Comment on above: Order Comment: Order Date: 02/04/24Order Info: [id number] - CMPOrder Info: - LIPIDOrder Info: [id number] - PSA Performed By: #### L 500.4050, L501.9910, L500.4100 ####[facility] [address] [place], [address] Triglyceride [Mass/Vol] 190 mg/dL Normal [facility] Comment on above: Order Comment: Order Date: 02/04/24Order Info: [id number] - CMPOrder Info: - LIPIDOrder Info: [id number] - PSA Result Comment: The drugs N-Acetylcysteine and Metamizole may falsely depress this assay. Normal range: <150 mg/dL Borderline High: 150-199 mg/dL High: 200-499 mg/dL Very High: >500 mg/dL Performed By: #### L 500.4050, L501.9910, L500.4100 ####[facility] [address] [place], [address] PSA, total screeningOrdered By: Kaley Meier on 08-03-2024 Prostate Specific Antigen Screen 0.97 ng/mL 0.02-4.00 [facility] Comment on above: This test was perfor med using the [employer] tPSA method. Measured values of a patient sample can vary depending on the testing procedure used. PSA values determined on patient samples by different testing procedures cannot be used interchangeably. If there is a change in PSA assays while monitoring therapy, sequential testing should be performed to confirm baseline values. PSA,Total - Annual Screenon 08-03-2024 PSA,TOT SCREEN 0.97 ng/mL Normal 0.02-4.00 [facility] Comment on above: Order Comment: Order Date: 02/04/24Order Info: [id number] - CMPOrder Info: [id number] - LIPIDOrder Info: [id number] - PSA Result Comment: This test was performed using the [employer] tPSA method. Measured values of a patient??sample can vary depending on the testing procedure used. PSA values determined on patient samples by different testing procedures cannot be used interchangeably. If there is a change in PSA assays while monitoring therapy, sequential testing should be performed to confirm baseline values. Performed By: #### L 500.4050, L501.9910, L500.4100 ####[facility] [address] [place], [address] Potassium (Unsp spec) [Mass/ Vol]Ordered By: Kaley Meier on 08-03-2024 Potassium [Moles/Vol] 4.3 mmol/L 3.3-5.1 [facility] Screening total cholesterol/ high density lipoprotein (HDL) cholesterol ratioOrdered By: Kaley Meier on 08-03-2024 Cholesterol.total/Choles terol in HDL [Mass ratio] 4.45 {ratio} [facility] Serum creatinine measurement (mass/volume)Ordered By: Kaley Meier on 08-03-2024 Creatinine [Mass/Vol] 0.93 mg/dL 0.70-1.20 [facility] Serum globulin measurementOr dered By: Kaley Meier on 08-03-2024 Globulin (S) [Mass/Vol] 3.1 g/dL 2.2-4.2 [facility] Serum glucose measurement (m ass/volume)Ordered By: Kaley Meier on 08-03-2024 Glucose [Mass/Vol] 108 mg/dL High 70-99 [facility] Serum or plasma alanine gallardo otransferase (ALT) measurementOrdered By: Kaley Meier on 08-03-2024 ALT [Catalytic activity/Vol] 48 U/L High <47 [facility] Serum or plasma albumin julianne urement (mass/volume)Ordered By: Kaley Meier on 08-03-2024 Albumin [Mass/Vol] 4.2 g/dL 3.5-5.0 [facility] Serum or plasma albumin/glob ulin mass ratioOrdered By: Kaley Meier on 08-03-2024 Albumin/Globulin [Mass ratio] 1.4 {ratio} 0.9-2.4 [facility] Serum or plasma alkaline azael sphatase measurementOrdered By: Kaley Meier on 08-03-2024 ALP [Catalytic activity/Vol] 77 U/L 40-129 [facility] Serum or plasma calcium julianne urement (mass/volume)Ordered By: Kaley Meier on 08-03-2024 Calcium [Mass/Vol] 9.5 mg/dL 7.6-11.0 [facility] Serum or plasma cholesterol in HDL measurement (mass/volume)Ordered By: Kaley Meier on 08-03-2024 Cholesterol in HDL [Mass/Vol] 38 mg/dL Low >40 [facility] Comment on above: National Cholesterol Education Program (NCEP) guidelines:<40 mg/dL: Low HDL-cholesterol (major risk factor for CHD)>= 60 mg/dL: High HDL-cholesterol (negative risk factor for CHD)HDL-cholesterol is affected by a number of factors, e.g. smoking, exercise, hormones, sex and age. Serum or plasma cholesterol measurement (mass/volume)Ordered By: Kaley Meier on 08-03-2024 Cholesterol [Mass/Vol] 170 mg/dL <201 [facility] Comment on above: Cholesterol level, D esirable <200 mg/dLBorderline high cholesterol 200-239 mg/dLHigh cholesterol >=240 mg/dLRecommendations of the NCEP Adult Treatment Panel for the following risk-cutoff thresholds for the [place] Citizen population. Serum or plasma urea nitroge n measurement (mass/volume)Ordered By: Kaley Meier on 08-03-2024 Urea nitrogen [Mass/Vol] 16 mg/dL 4-19 [facility] Sodium levelOrdered By: Alivia Meier on 08-03-2024 Sodium [Moles/Vol] 138 mmol/L 133-145 [facility] Total proteinOrdered By: Leon istopher Meier on 08-03-2024 Protein [Mass/Vol] 7.3 g/dL 5.9-8.4 [facility] Triglycerides measurementOrd ered By: Kaley Meier on 08-03-2024 Triglyceride [Mass/Vol] 190 mg/dL <199 [facility] Comment on above: The drugs N-Acetylcy steine and Metamizole may falsely depress this assay. Normal range: <150 mg/dLBorderline High: 150-199 mg/dLHigh: 200-499 mg/dLVery High: >500 mg/dL Surgery Visit Reporton 01-18 Surgery Visit Report [facility] [address] [place] [address] OFFICE VISIT Date of Service: 01/19/24 MR#: [id number] Acct: [id number] Name: DEREK CERDA Rep #: [id number] : 1970 Provider: Dr. Parish alves MD Age/Sex: 53/M Location: [facility] Status: Signed Intake Vital Signs 01/06/24 17:04 Height 5 ft 7 in Intake Visit Reasons: APPENDICITIS DOS 01/05 Chief Complaint: appendicitis DOS 01/05 Is patient in pain?: No Allergies No Known Allergies Allergy (Verified 01/19/24 14:16) Medications ???Medication ???Instructions ???Recorded ???Confirmed ???Type hydrochlorothiazide 12.5 mg tablet 12.5 mg PO DAILY 11/27/21 11/13/23 History lisinopril 40 mg tablet 40 mg PO DAILY #90 tabs 06/08/23 11/13/23 Rx multivitamin (Daily Multi-Vitamin 1 tab PO DAILY 09/01/23 11/13/23 History tablet) atorvastatin 10 mg tablet 10 mg PO DAILY #90 tabs 11/13/23 11/13/23 Rx loratadine 10 mg tablet 10 mg PO DAILY PRN 11/13/23 11/13/23 History Subjective Details: The patient is a 53-year-old male status post recent laparoscopic appendectomy. He follows up today for his postoperative visit now 2 weeks after the surgery. He really denies any issues or problems. Pathology was reviewed with him. Pathology was unremarkable except for routine findings for acute appendicitis. He states that he is not having any fevers or chills. He states that he has been eating and having bowel movements without difficulty. Objective Details: Is alert and oriented x 3. He is in no acute distress. Head is normocephalic and atraumatic. Abdomen is soft nontender and nondistended. He does have some mild swelling at the left upper quadrant incision site but I reassured him that this is just normal postoperative swelling that should resolve in the next couple weeks. He does have some slight erythema right at the actual incision. I did suggest possibly applying Neosporin or similar antibiotic ointment but this would be optional. Otherwise no signs of erythema or infection. Coding Level of Care Code Global Post Op Diagnoses S/P appendectomy Z90.49 [facility] Medical History Wears glasses Alcohol use High cholesterol Gastric reflux Non-smoker CPAP (continuous positive airway pressure) dependence Sleep apnea History of echocardiogram History of stress test Cardiology follow-up encounter Hyperlipidemia Chest pain Pre-syncope Essential hypertension Surgical History S/P appendectomy Amputation finger (2005) H/O nasal septoplasty (2008) Family History Brother Hypertension Multiple sclerosis Mother Arthritis Father Hypertension Hyperlipidemia Sister Multiple sclerosis Social History household members: spouse current occupational status: employed Smoking Status: Never smoker alcohol intake: current alcohol intake frequency: a few times a week substance use type: does not use caffeine: Yes Type: coffee Number of servings: 2 Assessment and Plan (No Qualifiers) Assessment and Plan (1) S/P appendectomy: Status: Acute Comment: The patient is a 53-year-old male status post a successful laparoscopic appendectomy for acute appendicitis. He is doing well postoperatively. He has no issues, problems or concerns. Pathology was consistent with routine appendicitis. I recommend that he continue to avoid significant lifting for another week or 2. Follow-up will be as needed. 01/19/24 1440 Date Parish Lee MD Cosigner Signature: Date (if applicable) CC: Dr. Kaley Meier MD Normal [facility] Abdomen/Pelvis W IV Cont ONL Yon 01-06-2024 Abdomen/Pelvis W IV Cont ONLY [facility] Imaging Services [address] [place] [address] Abdomen/Pelvis W IV Cont ONLY MR#: [id number] Acct: [id number] Name: DEREK CERDA Rep #: [id number] : 1970 M 53 From: Rey peraza MD PCP: Dr. Kaley Meier MD Status: REG ER Study: Abdomen/Pelvis W IV Cont ONLY Date of Exam: Exam# [id number] Ordering Dr: Roland Madsen DO ADDENDUM by Dr. Rey Skinner MD on 01/06/24 at 1630 [id number] STUDY: CT ABDOMEN AND PELVIS WITH CONTRAST REASON FOR EXAM: Male, 53 years old. RLQ Pain RADIATION DOSAGE (If Supplied By Facility): CTDIvol = ( 13.62 ) mGy, DLP = ( 974.19 ) mGycm TECHNIQUE: IV 100mL Isovue-370 was administered. Transaxial images were obtained from the dome of the diaphragm to the symphysis pubis in the portal venous phase. Multiplanar coronal and sagittal images were reformatted. Individualized Dose Optimization Techniques Were Used For This CT. COMPARISON: No relevant prior comparison study available FINDINGS: LOWER CHEST: Lung bases are clear. No cardiomegaly or pericardial effusion. LIVER: The liver is normal in size and shape with decreased attenuation. No focal mass. GALLBLADDER AND BILIARY TREE: The gallbladder is normally distended. No gallstones. No gallbladder wall thickening or edema. No pericholecystic fluid. No intra- or extrahepatic biliary ductal dilation. PANCREAS: No focal cystic or solid mass. SPLEEN: Normal size without focal cystic or solid mass. ADRENAL GLANDS: No nodules. KIDNEYS AND URETERS: Normal renal size and position. No hydronephrosis or nephrolithiasis. PERITONEUM: No ascites or free air. No other fluid collection. BOWEL: The stomach is unremarkable. Normal caliber small bowel. There is no obstruction. Abnormal appendix. The appendix measures 0.8 cm in diameter. Inflammatory changes are seen along the course of the appendix. The remainder of the colon shows no acute abnormality. Minimal diverticulosis without diverticulitis. LYMPH NODES: No enlarged mesenteric or retroperitoneal lymph nodes. VESSELS: The aorta is normal in caliber with mild atherosclerotic calcification. URINARY BLADDER: Unremarkable. REPRODUCTIVE ORGANS: No pelvic masses. ABDOMINAL WALL: No discrete abdominal or pelvic wall hernia. BONES: No lytic or blastic abnormality. 01/06/24 1630 Date cc: Dr. Kaley Meier MD; Dr. Roland Madsen DO * Signed ADDENDUM by Dr. Rey Skinner MD on 01/06/[address]/Abdomen/Pelvis W IV Cont ONLY IMPRESSION: Acute appendicitis. No free air or fluid collection. Hepatic steatosis. N.B. : The above Results were Read Back by Rey Skinner MD to Roland Madsen DO, and understanding confirmed on 01/06/2024 16:35:50 (ET). Electronically Signed: Rey Skinner MD at 16:30 EDT Reading Location ID and State: [address] [place] [address] Tel , Service support , 01/06/24 1642 Date cc: Dr. Kaley Meier MD; Dr. Roland Madsen DO * Signed We are attempting to reach an attending provider to discuss findings. An addendum with communication details will be sent when the communication is complete. [id number] STUDY: CT ABDOMEN AND PELVIS WITH CONTRAST REASON FOR EXAM: Male, 53 years old. RLQ Pain RADIATION DOSAGE (If Supplied By Facility): CTDIvol = ( 13.62 ) mGy, DLP = ( 974.19 ) mGycm TECHNIQUE: IV 100mL Isovue-370 was administered. Transaxial images were obtained from the dome of the diaphragm to the symphysis pubis in the portal venous phase. Multiplanar coronal and sagittal images were reformatted. Individualized Dose Optimization Techniques Were Used For This CT. COMPARISON: No relevant prior comparison study available FINDINGS: LOWER CHEST: Lung bases are clear. No cardiomegaly or pericardial effusion. LIVER: The liver is normal in size and shape with decreased attenuation. No focal mass. GALLBLADDER AND BILIARY TREE: The gallbladder is normally distended. No gallstones. No gallbladder wall thickening or edema. No pericholecystic fluid. No intra- or extrahepatic biliary ductal dilation. PANCREAS: No focal cystic or solid mass. SPLEEN: Normal size without focal cystic or solid mass. ADRENAL GLANDS: No nodules. KIDNEYS AND URETERS: Normal renal size and position. No hydronephrosis or nephrolithiasis. PERITONEUM: No ascites or free air. No other fluid collection. BOWEL: The stomach is unremarkable. Normal caliber small bowel. There is no obstruction. Abnormal appendix. The appendix measures 0.8 cm in diameter. Infla (more content not included)... Normal [facility] Basic Metabolic Profile (BMP )on 01-06-2024 BUN/CRE 16.2 RATIO Normal 10-20 [facility] Comment on above: Performed By: #### L 100.0100, L500.2500, L500.3400, L501.2450 ####[facility] [address] [place], [address] CA,Total 9.0 mg/dL Normal 8.5-10.1 [facility] Comment on above: Performed By: #### L 100.0100, L500.2500, L500.3400, L501.2450 ####[facility] [address] [place], [address] Chloride [Moles/Vol] 106 mmol/L Normal 98-107 [facility] Comment on above: Performed By: #### L 100.0100, L500.2500, L500.3400, L501.2450 ####[facility] [address] [place], [address] CO2 [Moles/Vol] 25.0 mmol/L Normal 21.0-32.0 [facility] Comment on above: Performed By: #### L 100.0100, L500.2500, L500.3400, L501.2450 ####[facility] [address] [place], [address] Creatinine [Mass/Vol] 1.05 mg/dL Normal 0.70-1.30 [facility] Comment on above: Result Comment: The validity of the calculated GFR GFRAA in patients over 70 years has not been determined. Clinical correlation is essential. Performed By: #### L 100.0100, L500.2500, L500.3400, L501.2450 ####[facility] [address] [place], [address] ECRCL 86.77 ml/min Normal [facility] Comment on above: Performed By: #### L 100.0100, L500.2500, L500.3400, L501.2450 ####[facility] [address] [place], [address] EST GFR - AA 95 mL/min Normal >60 [facility] Comment on above: Result Comment: Afri can [place] Citizen GFR Calc Performed By: #### L 100.0100, L500.2500, L500.3400, L501.2450 ####[facility] [address] [place], [address] GAP 4 Low 5-15 [facility] Comment on above: Performed By: #### L 100.0100, L500.2500, L500.3400, L501.2450 ####[facility] [address] [place], [address] GFR/1.73 sq M.predicted among non-blacks MDRD (S/P/Bld) [Vol rate/Area] 79 mL/min/{1.73_m2} Normal >60 [facility] Comment on above: Result Comment: Non- GFR Calc Performed By: #### L 100.0100, L500.2500, L500.3400, L501.2450 ####[facility] [address] [place], [address] Glucose [Mass/Vol] 102 mg/dL Normal 74-106 [facility] Comment on above: Result Comment: Fast ing Glucose result from 100 to 125 mg/dL suggests IMPAIRED HOMEOSTASIS per A.D.A. criteria. Performed By: #### L 100.0100, L500.2500, L500.3400, L501.2450 ####[facility] [address] [place], [address] Potassium [Moles/Vol] 3.6 mmol/L Normal 3.5-5.1 [facility] Comment on above: Performed By: #### L 100.0100, L500.2500, L500.3400, L501.2450 ####[facility] [address] [place], [address] Sodium [Moles/Vol] 135 mmol/L Low 136-145 [facility] Comment on above: Performed By: #### L 100.0100, L500.2500, L500.3400, L501.2450 ####[facility] [address] [place], [address] Urea nitrogen [Mass/Vol] 17 mg/dL Normal 7-18 [facility] Comment on above: Performed By: #### L 100.0100, L500.2500, L500.3400, L501.2450 ####[facility] [address] [place], [address] CBC W/Diff, Automatedon 09- Absolute Lymph 1.88 X10 3/uL Normal 0.83-4.51 [facility] Comment on above: Performed By: #### L 100.0100, L500.2500, L500.3400, L501.2450 ####[facility] [address] [place], [address] Absolute Neut 10.9 X10 3/uL High 2.0-7.7 [facility] Comment on above: Performed By: #### L 100.0100, L500.2500, L500.3400, L501.2450 ####[facility] [address] [place], [address] Basophils/100 WBC (Bld) 0.2 % Normal 0-1 [facility] Comment on above: Performed By: #### L 100.0100, L500.2500, L500.3400, L501.2450 ####[facility] [address] [place], [address] Eosinophils/100 WBC (Bld) 0.4 % Normal 0-5 [facility] Comment on above: Performed By: #### L 100.0100, L500.2500, L500.3400, L501.2450 ####[facility] [address] [place], [address] Erythrocyte distribution width (RBC) [Ratio] 12.3 % Normal 11.6-14.6 [facility] Comment on above: Performed By: #### L 100.0100, L500.2500, L500.3400, L501.2450 ####[facility] [address] [place], [address] Hematocrit (Bld) [Volume fraction] 42.5 % Normal 40-54 [facility] Comment on above: Performed By: #### L 100.0100, L500.2500, L500.3400, L501.2450 ####[facility] [address] [place], [address] Hemoglobin (Bld) [Mass/Vol] 14.5 g/dL Normal 13.0-16.5 [facility] Comment on above: Performed By: #### L 100.0100, L500.2500, L500.3400, L501.2450 ####[facility] [address] [place], [address] IG% 0.400 Normal 0.0-0.9 [facility] Comment on above: Result Comment: IG% - Immature Granulocytes (promyelocytes, myelocytes and metamyelocytes) > 1% indicates that a LEFT SHIFT is Present. Performed By: #### L 100.0100, L500.2500, L500.3400, L501.2450 ####[facility] [address] [place], [address] Lymphocytes/100 WBC (Bld) 13.4 % Low 19-41 [facility] Comment on above: Performed By: #### L 100.0100, L500.2500, L500.3400, L501.2450 ####[facility] [address] [place], [address] MCH (RBC) [Entitic mass] 30.5 pg Normal 27.0-32.0 [facility] Comment on above: Performed By: #### L 100.0100, L500.2500, L500.3400, L501.2450 ####[facility] [address] [place], [address] MCHC (RBC) [Mass/Vol] 34.1 g/dL Normal 32-36 [facility] Comment on above: Performed By: #### L 100.0100, L500.2500, L500.3400, L501.2450 ####[facility] [address] [place], [address] MCV (RBC) [Entitic vol] 89.3 fL Normal 80-94 [facility] Comment on above: Performed By: #### L 100.0100, L500.2500, L500.3400, L501.2450 ####[facility] [address] [place], [address] Monocytes/100 WBC (Bld) 7.4 % Normal 0-10 [facility] Comment on above: Performed By: #### L 100.0100, L500.2500, L500.3400, L501.2450 ####[facility] [address] [place], [address] Neutrophils/100 WBC (Bld) 78.2 % High 47-70 [facility] Comment on above: Performed By: #### L 100.0100, L500.2500, L500.3400, L501.2450 ####[facility] [address] [place], [address] Nucleated RBC (Bld) [#/Vol] 0 10*3/uL Normal 0-5 [facility] Comment on above: Performed By: #### L 100.0100, L500.2500, L500.3400, L501.2450 ####[facility] [address] [place], [address] Platelet mean volume (Bld) [Entitic vol] 9.4 fL Normal 6.2-12.0 [facility] Comment on above: Performed By: #### L 100.0100, L500.2500, L500.3400, L501.2450 ####[facility] [address] [place], [address] Platelets (Bld) [#/Vol] 272 10*3/uL Normal 150-450 [facility] Comment on above: Performed By: #### L 100.0100, L500.2500, L500.3400, L501.2450 ####[facility] [address] [place], [address] RBC (Bld) [#/Vol] 4.76 10*6/uL Normal 4.6-6.2 [facility] Comment on above: Performed By: #### L 100.0100, L500.2500, L500.3400, L501.2450 ####[facility] [address] [place], [address] RDW SD 40.2 fl Normal 35.1-43.9 [facility] Comment on above: Performed By: #### L 100.0100, L500.2500, L500.3400, L501.2450 ####[facility] [address] [place], [address] WBC (Bld) [#/Vol] 14.0 10*3/uL High 4.4-11.0 [facility] Comment on above: Performed By: #### L 100.0100, L500.2500, L500.3400, L501.2450 ####[facility] [address] [place], [address] Discharge Instructionon 12-26 Discharge Instruction [facility] Medical Records Department [address] [facility] [place] [address] Instructions for Home/Discharge Instructions 01/06/241950 MR#: [id number] Acct: [id number] Name: DEREK CERDA Rep #: [id number] : 1970 53 From: Parish Lee MD PCP: Dr. Kaley Meier MD [place] [facility] [place] Instructions Diet Discharge Diet: Light diet - advance as tolerated Dressing / Incision Call your doctor if your incision/area has: Continuous Slow Oozing, Sudden Increased Bleeding, Increased Redness and Foul Smelling Discharge Call your doctor if you observe: Fever of 101 or Higher and Uncontrolled pain Cleanse incision/area with: Soap Water Follow Up Care Please Follow Up With: Parish Lee MD Test Results: Test results from this visit will be discussed in further detail at your follow-up appointment, if applicable. Discharge Plan Admission Attending Provider: Parish Lee Primary Care Provider: Kaley Meier Instructions Print Language: Beninese Discharge Orders/Prescriptions Prescriptions: New oxycodone-acetaminop hen [Percocet] 5-325 mg tablet 1 tab PO Q8H PRN (Reason: pain) 5 Days Qty: 12 0RF Continued hydrochlorothiazide 12.5 mg tablet 12.5 mg PO DAILY loratadine 10 mg tablet 10 mg PO DAILY PRN atorvastatin 10 mg tablet 10 mg PO DAILY Qty: 90 3RF multivitamin [Daily Multi-Vitamin] Tablet 1 tab PO DAILY lisinopril 40 mg tablet 40 mg PO DAILY Qty: 90 4RF Referrals / Follow Up: Kaley Meier MD [Primary Care Provider] - Disposition Disposition (needs filled in before D/C Order can be placed): Home, Self Care 01/07/24 1255 Parish Lee MD CC: Dr. Kaley Meier MD Signed Normal [facility] Discharge Instruction [facility] Records Department [address] [place] [address] Instructions for Home/Discharge Instructions 01/06/24 1950 MR#: [id number] Acct: [id number] Name: DEREK CERDA Rep #: [id number] : 1970 53 From: Parish Lee MD PCP: Dr. Kaley Meier MD Status:[place] [facility] [place] Instructions Diet Discharge Diet: Light diet - advance as tolerated Dressing / Incision Call your doctor if your incision/area has: Continuous Slow Oozing, Sudden Increased Bleeding, Increased Redness and Foul Smelling Discharge Call your doctor if you observe: Fever of 101 or Higher and Uncontrolled pain Cleanse incision/area with: Soap Water Follow Up Care Please Follow Up With: Parish Lee MD Test Results: Test results from this visit will be discussed in further detail at your follow-up appointment, if applicable. Discharge Plan Admission Attending Provider: Parish Lee Primary Care Provider: Kaley Meier Instructions Print Language: Beninese Discharge Orders/Prescriptions Prescriptions: No Action hydrochlorothiazide 12.5 mg tablet 12.5 mg PO DAILY loratadine 10 mg tablet 10 mg PO DAILY PRN atorvastatin 10 mg tablet 10 mg PO DAILY Qty: 90 3RF multivitamin [Daily Multi-Vitamin] Tablet 1 tab PO DAILY lisinopril 40 mg tablet 40 mg PO DAILY Qty: 90 4RF Referrals / Follow Up: Kaley Meier MD [Primary Care Provider] - Disposition Disposition (needs filled in before D/C Order can be placed): Home, Self Care 01/06/241950 Parish Lee MD CC: Dr. Kaley Meier MD Signed Normal [facility] Discharge Instruction [facility] Records Department [address] [place] [address] Instructions for Home/Discharge Instructions 01/06/241944 MR#: [id number] Acct: [id number] Name: DEREK CERDA Rep #: [id number] : 1970 53 From: Parish Lee MD PCP: Dr. Kaley Meier MD Status:[place] [facility] [place]charge Instructions Diet Discharge Diet: Light diet - advance as tolerated Activity Discharge Activity: Return to Normal Activity and - (Avoid lifting more than 20 pounds for 3 to 4 weeks) Dressing / Incision Call your doctor if your incision/area has: Continuous Slow Oozing, Sudden Increased Bleeding, Increased Redness and Foul Smelling Discharge Call your doctor if you observe: Fever of 101 or Higher and Uncontrolled pain Cleanse incision/area with: Soap Water Follow Up Care Please Follow Up With: Parish Lee MD When: 2 weeks Test Results: Test results from this visit will be discussed in further detail at your follow-up appointment, if applicable. Discharge Plan Admission Attending Provider: Parish Lee Primary Care Provider: Kaley Meier Instructions Print Language: Beninese Discharge Orders/Prescriptions Prescriptions: No Action hydrochlorothiazide 12.5 mg tablet 12.5 mg PO DAILY loratadine 10 mg tablet 10 mg PO DAILY PRN atorvastatin 10 mg tablet 10 mg PO DAILY Qty: 90 3RF multivitamin [Daily Multi-Vitamin] Tablet 1 tab PO DAILY lisinopril 40 mg tablet 40 mg PO DAILY Qty: 90 4RF Referrals / Follow Up: Kaley Meier MD [Primary Care Provider] - Disposition Disposition (needs filled in before D/C Order can be placed): Home, Self Care 01/07/24 1255 Parish Lee MD CC: Dr. Kaley Meier MD Signed Normal [facility] Emergency Department Summary on 01-06-2024 Emergency Department Summary [facility] Records Department [address] [place] [address] Emergency Department Summary 01/06/24 MR#: [id number] Acct: [id number] Name: DEREK CERDA Rep #: [id number] : 1970 53 From: Roland Madsen DO PCP: Dr. Kaley Meier MD Status:[place] [facility] [place] [facility] [place] HPI - GI History of Present Illness Chief Complaint: Abd Pain Informant: patient and spouse/S.O. Narrative Narrative: 53-year-old male presenting to the emergency room with chief complaint of abdominal pain. The patient states that his right lower quadrant abdominal pain this morning has continued throughout the day. He notes is worse with getting up and moving around. He notes no nausea vomiting no dysuria no urinary frequency kidney stones diarrhea or constipation. He denies any geographic medical states if he remains still it starts to calm down. He notes that he has had prior kidney infection in the past but this does not feel similar. Notes a history of hypertension hypercholesterolemia . He notes that on Thursday he had hit his abdomen with a lawnmower handle but did not have any pain until today. He denies any bruising or swelling. [facility] Medical History Wears glasses Alcohol use High cholesterol Gastric reflux Non-smoker CPAP (continuous positive airway pressure) dependence Sleep apnea History of echocardiogram History of stress test Cardiology follow-up encounter Hyperlipidemia Chest pain Pre-syncope Essential hypertension Home Medications ???Medication ???Instructions ???Recorded ???Last Taken ???Type hydrochlorothiazide 12.5 mg tablet 12.5 mg PO DAILY 11/27/21 09/01/23 History lisinopril 40 mg tablet 40 mg PO DAILY #90 tabs 06/08/23 09/03/23 Rx multivitamin (Daily Multi-Vitamin 1 tab PO DAILY 09/01/23 Unknown History tablet) atorvastatin 10 mg tablet 10 mg PO DAILY #90 tabs 11/13/23 Unknown Rx loratadine 10 mg tablet 10 mg PO DAILY PRN 11/13/23 Unknown History Allergy/AdvReac Type Severity Reaction Status Date / Time No Known Allergies Allergy Verified 01/06/24 14:57 Family History Brother Hypertension Multiple sclerosis Mother Arthritis Father Hypertension Hyperlipidemia Sister Multiple sclerosis Surgical History Amputation finger (2006) H/O nasal septoplasty (2008) Social History household members: spouse current occupational status: employed Smoking Status: Never smoker alcohol intake: current alcohol intake frequency: a few times a week substance use type: does not use caffeine: Yes Type: coffee Number of servings: 2 ROS ROS ED Constitutional Constitutional ED: Denies chills, fever(s) or weight loss Eyes Eyes: Denies change in vision or diplopia ENT ENT ED: Denies ear pain, rhinorrhea or sore throat Cardiovascular Cardiovascular: Denies chest pain, orthopnea, palpitations or racing heartbeat Respiratory/Chest Respiratory/Chest: Denies cough, dyspnea or orthopnea Gastrointestinal Gastrointestinal: Reports abdominal pain; Denies constipation, diarrhea, nausea or vomiting Genitourinary Genitourinary ED: Denies dysuria, hematuria or urinary frequency Musculoskeletal Musculoskeletal: Denies arthralgias, back pain, myalgias or neck pain Integumentary Denies abscess or rash Neurologic Neurologic: Denies headache(s) or weakness Psychiatric Psychiatric: Denies anxiety, depression, suicidal ideation or suicidal thoughts Endocrine Endocrinology: Denies polydipsia, polyphagia or polyuria Allergic/Immunologic Allergic/Immunologic ED: Denies mouth swelling, tongue swelling or urticaria EXAM Physical Exam Const Vital Signs: 01/06/24 14:57 Temperature 97.9 F Temperature Source Temporal Pulse Rate 87 Respiratory Rate 18 Blood Pressure 155/89 H Blood Pressure Mean 111 Pulse Ox 94 Oxygen Delivery Method Room Air Positive well nourished and well developed General Appearance ED: well developed and NAD HEENT Reports normocephalic, head/scalp atraumatic and moist mucous membranes Eyes PERRL and EOMs intact bilaterally Neck no lymphadenopathy, supple and no JVD Resp normal respiratory effort and clear to auscultation bilaterally Cardio regular rate, regular rhythm and no murmurs GI non-distended and no masses Inspection: abdominal distention Palpation: soft, tender RLQ and guarding; Negative for hernia or rebound tenderness present Back/Spine no CVA tenderness and normal ROM Extremity normal to inspection General Extremety ED: Negative for edema General Extremity: Negative for edema Neuro oriented x3 and CN's II-XII (more content not included)... Normal [facility] Lipaseon 01-06-2024 Lipase [Catalytic activity/Vol] 35 U/L Normal 13-75 [facility] Comment on above: Result Comment: Elsie bob note: LIPASE revised reference range effective 22. New Lipase methodology. Expected to produce lower values than the previous assay method. NEW Reference Range: 13 - 75 U/L Performed By: #### L 100.0100, L500.2500, L500.3400, L501.2450 ####[facility] [address] [place], [address] Liver Profileon 01-06-2024 Albumin [Mass/Vol] 3.5 g/dL Normal 3.2-5.0 [facility] Comment on above: Performed By: #### L 100.0100, L500.2500, L500.3400, L501.2450 ####[facility] [address] [place], [address] ALK P 69 U/L Normal 45-117 [facility] Comment on above: Performed By: #### L 100.0100, L500.2500, L500.3400, L501.2450 ####[facility] [address] [place], [address] ALT [Catalytic activity/Vol] 43 U/L Normal 16-61 [facility] Comment on above: Performed By: #### L 100.0100, L500.2500, L500.3400, L501.2450 ####[facility] [address] [place], [address] AST [Catalytic activity/Vol] 34 U/L Normal 15-37 [facility] Comment on above: Performed By: #### L 100.0100, L500.2500, L500.3400, L501.2450 ####[facility] [address] [place], [address] Bilirubin [Mass/Vol] 0.50 mg/dL Normal 0.20-1.00 [facility] Comment on above: Result Comment: For patients on eltrombopag therapy, use of Dimension [place] TBIL is not recommended. Performed By: #### L 100.0100, L500.2500, L500.3400, L501.2450 ####[facility] [address] [place], [address] Bilirubin.direct [Mass/Vol] 0.15 mg/dL Normal 0.00-0.30 [facility] Comment on above: Performed By: #### L 100.0100, L500.2500, L500.3400, L501.2450 ####[facility] [address] [place], [address] Globulin (S) [Mass/Vol] 3.7 g/dL Normal 2.2-4.2 [facility] Comment on above: Performed By: #### L 100.0100, L500.2500, L500.3400, L501.2450 ####[facility] [address] [place], [address] T PROT 7.2 g/dL Normal 6.4-8.2 [facility] Comment on above: Performed By: #### L 100.0100, L500.2500, L500.3400, L501.2450 ####[facility] [address] [place], [address] MR/POSTOP.ANEon 01-06-2024 MR/POSTOP.[facility] Medical Records Department [address] [place] [address] Anesthesia Postop Eval I 01/06/241939 MR#: [id number] Acct: [id number] Name: DEREK CERDA Rep #: [id number] : 1970 53 From: Erlin Pinzon MD PCP: Dr. Kaley Meier MD Status:[place] [facility] [place] Race: C Location: [facility]- Anesthesia: Postop Eval I Current Vital Signs Temperature: 99 F Pulse Rate: 74 Blood Pressure: 113/59 Respiratory Rate: 19 Pulse Ox: 99 Assessment Airway patent: Yes Spontaneous unlabored respirations: Yes nausea: No Vomiting: No Anesthesia Complication: No Fluid Hydration Crystalloid volume administer (ml): 350 Total IV fluid infused: 350 Progress Note Anesthesia document: Postop Eval 1 completed: Yes 01/06/241942 Date [facility]: Date CC: Signed Normal [facility] MR/[id number] 01-06-2024 [facility] Medical Records Department [address] [place] [address] Anesthesia Postop Eval II 01/06/241942 MR#: [id number] Acct: [id number] Name: DEREK CERDA Rep #: [id number] : 1970 53 From: Erlin Pinzon MD PCP: Dr. Kaley Meier MD Status:REG [facility] [place] Race: C Location: [facility]2 Anesthesia Postop Eval I Sum Postop Eval Completion status Anesthesia document: Postop Eval 1 completed: Yes Anesthesia Postop Eval I Summary Anesthesia Postop Eval I Summary: Anesthesia Postop Eval I: Assessment Summary Airway patent Yes 01/06/24 19:40 Spontaneous unlabored Yes 01/06/24 19:40 respirations Mental status nausea No 01/06/24 19:40 Vomiting No 01/06/24 19:40 Anesthesia Postop Eval I: Fluid Summary Crystalloid volume administer 350 01/06/24 19:40 (ml) Colloids volume administered ( ml) Blood Product volume administered (ml) Total IV fluid infused 350 01/06/24 19:40 Anesthesia Postop Eval I: Summary Notes Anesthesia Complication No 01/06/24 19:40 Anesthesia Complication Comment: Post-operative progress note Anesthesia: Postop Eval II Evaluation Mental status: Awake Pain Level: 0 nausea: No Vomiting: No 01/06/24 194 Date Erlin Lee Signature: Date CC: Signed Normal [facility] Operative Reporton 4 Operative Report [facility] Medical Records Department [address] [place] [address] Operative Report 01/06/241935 MR#: [id number] Acct: [id number] Name: DEREK CERDA Rep #: [id number] : 1970 53 From: Parish Lee MD PCP: Dr. Kaley Meier MD Status:[facility] Location: [place] [address] Problems Associated Problem List Diagnoses (1) Acute appendicitis: Report of Operation Date of Procedure: 01/06/24 Pre-Operative Diagnosis: Acute appendicitis Post-Operative Diagnosis: Acute appendicitis Surgery/Procedure Performed:: Laparoscopic appendectomy Description of Surgical Findings:: Mild acute appendicitis Surgeon: Parish Lee Type of Anesthesia: General Anesthesiologist: Derek Pinzon Specimen's removed: Appendix Drains: None Estimated Blood Loss (mL): 10 mL Description of Procedure: The patient is a 53-year-old male who presents to the emergency room earlier today with right lower quadrant pain x 1 day. He was seen evaluate by the ER staff he was found to have a white count of 14,[address] scan showed acute appendicitis. Surgery was consulted. I recommended a laparoscopic appendectomy as treatment. We discussed the details of the planned procedure including the risks benefits and alternatives. He wished to proceed. He was brought to the operating room today following informed consent. Antibiotics were given preoperatively in the emergency room. He was placed supine the operative table with arms initially outstretched on arm boards. General anesthesia was then induced. His left arm was comfortably tucked at his side and his right arm was left outstretched on an armboard. His abdomen is then clipped prepped and draped in the usual sterile manner. A 5 mm incision was made just below the umbilicus for which a 5 mm trocar was placed optically. This was placed without incident. Once in place the abdomen send fully insufflated with CO2 gas. Next a 5 mm trocar was placed in the left lower quadrant under direct visualization. This was placed without incident. A 12 mm trocar was then placed in the left upper quadrant also under direct visualization. The right lower quadrant was then inspected. The thickened inflamed appendix was visualized. This was not ruptured or perforated. The appendix was grasped in its midportion with a bowel grasper. The base of the appendix was identified. A [place] dissector was then used to create a small window in the mesentery at the base of the appendix. A BARBRA stapler was fired across the appendix flush with the cecum. Next another BARBRA staple load was used to transect the mesoappendix. This was a vascular staple load. After this the appendix was then free. It was then placed into a bag and brought out through the 12 mm trocar site. The right lower quadrant was then copiously irrigated. Hemostasis was excellent. Fluid was suctioned out. The fascia at the 12 mm trocar site was then closed using 0 PDS with a fascial closure device. Local anesthetic was injected into each of the incisions after the trocars were removed. A total of 20 cc of local anesthetic were injected. 5-0 Vicryl was then used to close the skin incisions. Skin glue was applied as dressing. He was awake from anesthesia and taken to the PACU in good condition Complications None Admit VTE Documentation VTE Mechan Device Prophylaxis: SCD's Procedures Digestive 40xxx-49xxx: 79411 Laparoscopy appendectomy 01/06/241944 Cosigner Signature (if applicable): CC: Dr. Kaley Meier MD; Dr. Roland Madsen DO; Dr. Parish Lee MD Signed Normal [facility] Surgery Specimen Level IIIon 01-06-2024 Surgery Specimen Level III Patient Age/Sex Location Account Attending Physician DEREK CERDA 53/M [facility] [id number] [place]. Parish Lee MD Specimen: [id number] Received: 01/07/24 Status: JAMEL Horvath Num: [id number] Spec Type: APPENDIX Subm Dr: Dr. Parish Lee MD HEADER OPERATION: Laparoscopic appendectomy PRE-OP DIAGNOSIS: Abdominal pain, acute, acute appendicitis TISSUE SUBMITTED: Appendix MICROSCOPIC DIAGNOSIS Appendix, appendectomy: Acute appendicitis and periappendicitis. . 01/08/2024 MICROSCOPIC DESCRIPTION Slides are reviewed. GROSS DESCRIPTION Received in fixative is one container labeled with the patient's name and designated appendix. The specimen consists of appendix measuring 4.5 cm in length and up to 0.6 cm in diameter. The attached periappendiceal adipose tissue measures up to 1.5 cm in width. The serosa surface is congested and covered with lucero purulent exudate. No obvious perforation is identified. The lumen is filled with fecal material. No fecalith is identified. [employer] Attendant sections are submitted in one cassette. / SJ: 01/07/2024 TC:2 CPT: 70248 Patient Age/Sex Location Account Attending Physician DEREK CERDA/[facility] [id number] Dr. Parish Lee MD Signed (signature on file) Dr. Abdullahi Rosa MD 01/08/24 1247 Normal [facility] Comment on above: Performed By: #### P SUIII ####[facility] [address] [place], [address] Urinalysis, Completeon 01-05 BACTERIA 0 SEEN Normal None Seen [facility] Comment on above: Order Comment: CLEAN CATCH Performed By: #### L 400.0001 #### [facility] Laboratory [address] [place], [address] EPI,SQUAMOUS 0 SEEN Normal 0-5 [facility] Comment on above: Order Comment: CLEAN CATCH Performed By: #### L 400.0001 #### [facility] [address] [place], [address] Mucus Ql (Urine sed) 0 SEEN Normal [facility] Comment on above: Order Comment: CLEAN CATCH Performed By: #### L 400.0001 #### [facility] [address] [place], [address] RBC 0 SEEN Normal 0-5 [facility] Comment on above: Order Comment: CLEAN CATCH Performed By: #### L 400.0001 #### [facility] [address] [place], [address] WBC 0 SEEN Normal 0-5 [facility] Comment on above: Order Comment: CLEAN CATCH Performed By: #### L 400.0001 #### [facility] [address] [place], [address] Cardiology Visit Reporton Cardiology Visit Report [facility] [address] [place] [address] OFFICE VISIT Date of Service: 11/13/23 MR#: [id number] Acct: [id number] Name: DEREK CERDA Rep #: [id number] : 1970 Provider: Dr. Bonilla Lujan MD Age/Sex: 53/M Location: [facility] Status: Signed HPI HPI History of Present Illness Details: 53-year-old man with a history of hypertension and Covid in April 2020. He had presented with chest discomfort to the emergency room his EKG was normal troponin was negative and he thinks that he did well post Covid. He also has a history of hyperlipidemia. From a cardiac standpoint, patient is doing well. He does not have any chest discomfort/heaviness /tightness. His exercise tolerance is stable for his age. He does not have any worsening symptoms of shortness of breath. He denies any PND. He does not have any orthopnea. He does not have any symptoms of congestive heart failure. He does not have any palpitations that he is aware of. He does not have any lightheadedness or dizziness. He does not have any near-syncope or syncope. He does not have any lower extremity edema. He does not have any symptoms of claudication. Intake Vital Signs 09/03/23 07:42 11/13/23 09:52 Height 5 ft 7 in 5 ft 7 in Weight: 186 lb 5 oz BMI 29.2 BP 116/79 Blood Pressure Location Lt brachial Position Sitting Respiration 16 Pulse 73 Pulse Source Monitor Intake Visit Reasons: 1 Y FU [employer] Required: No Accompanied by: Self Is patient in pain?: No Allergies No Known Allergies Allergy (Verified 11/13/23 09:55) Medications ???Medication ???Instructions ???Recorded ???Confirmed ???Type hydrochlorothiazide 12.5 mg tablet 12.5 mg PO DAILY 11/27/21 11/13/23 History lisinopril 40 mg tablet 40 mg PO DAILY #90 tabs 06/08/23 11/13/23 Rx multivitamin (Daily Multi-Vitamin 1 tab PO DAILY 09/01/23 11/13/23 History tablet) atorvastatin 10 mg tablet 10 mg PO DAILY #90 tabs 11/13/23 11/13/23 Rx loratadine 10 mg tablet 10 mg PO DAILY PRN 11/13/23 11/13/23 History Have you fallen in the past year?: No PFSH Medical History Wears glasses Alcohol use High cholesterol Gastric reflux Non-smoker CPAP (continuous positive airway pressure) dependence Sleep apnea History of echocardiogram History of stress test Cardiology follow-up encounter Hyperlipidemia Chest pain Pre-syncope Essential hypertension Surgical History Amputation finger (2005) H/O nasal septoplasty (2008) Family History Brother Hypertension Multiple sclerosis Mother Arthritis Father Hypertension Hyperlipidemia Sister Multiple sclerosis Social History household members: spouse current occupational status: employed Smoking Status: Never smoker alcohol intake: current alcohol intake frequency: a few times a week substance use type: does not use caffeine: Yes Type: coffee Number of servings: 2 ROS Const Const: Negative for fatigue, weakness, headache(s), daytime sleepiness or difficulty sleeping ENT ENT: Negative for headache(s), dizziness or Nosebleed/epistaxis Cardio Chest Pain: No Palpitations: No Edema: None Resp Respiratory: Negative for SOB with activity, SOB at rest, SOB orthopnea SOB lying down or Cough GI GI: Negative nausea, vomiting or heartburn Neuro Neuro: Negative for dizziness, lightheadedness, near syncope, headache(s) or weakness Endo Endo: Negative for fatigue Cardiology Exam Const Appearance: cooperative, healthy appearing, comfortable and no acute distress Nutritional Appearance: well nourished and obese Orientation: alert, awake and oriented x3 Head Head: normal to inspection Ears: hearing grossly normal bilaterally Nose: external nose normal Face and Sinus: face symmetric Mouth: oral mucosae normal Eyes General: appearance normal, both eyes and all related structures Eyelids: eyelids normal EOM: EOM intact bilaterally Neck Neck: normal visual inspection and no JVD Carotids: normal carotid upstroke Chest Chest inspection: normal inspection of the chest, symmetric chest movement and normal respiratory effort; Negative cough Auscultation: Bilateral: Clear to Auscultation Cardio Rate: regular rate Rhythm: regular rhythm Heart sounds: S1 normal and S2 normal; Negative rub, gallop or murmur GI GI: normal to inspection and obese Neuro General: patient alert, patient awake, patient oriented x3 and CN's II-XI intact bilaterally Skin Skin: no rashes or lesions noted Extremities Pulses: Normal: Right Posterior Tibial Pulse, Left Posterior Tibial Pu (more content not included)... Normal [facility] ANTINUCLEAR ANTIBODIES DIREC Ton 09-08-2023 ADENIKE,DIRECT Negative Normal Negative [facility] Comment on above: Order Comment: JEFFERSON MEIER ORDEROrder Date: 08/03/23Order Info: [id number] - ADENIKE Result Comment: Perf ormed at: - [facility] [address] [id number] Cash Applications Representative: Deonte Tom PhD, Phone: [phone] Performed By: #### L 101.9900, L506.1000, L3100.5475, L503.6150, L100.0100, L503.6550, L501.9520, L501.6710, L509.3000, L503.0105 ####[facility] [address] [place], [place], [address] Brain W/WO Contraston 2023 Brain W/WO Contrast [facility] Imaging Services [address] [place] [address] Brain W/WO Contrast MR#: [id number] Acct: [id number] Name: DEREK CERDA Rep #: [id number] : 1970 M Gus From: Hayde zaldivar MD PCP: Dr. Kaley Meier MD Status: REG CLI Study: Brain W/WO Contrast Date of Exam: 09/07/23 Exam# [id number] Ordering Dr: Kaley Meier [id number] HISTORY: Paresthesias. Balance issues, vision changes, tingling. TECHNIQUE: Multiplanar and multisequence MR images of the brain were obtained before and after the intravenous administration of 17 mL Clariscan. 362 images. COMPARISON: CT 10/15/2018. FINDINGS: BRAIN PARENCHYMA: No significant signal abnormality or enhancing lesion in the brain parenchyma. No abnormal focus of restricted diffusion to suggest acute infarct. No acute intracranial hemorrhage identified. CSF SPACES: Cerebral ventricles, cortical sulci, and other extra-axial CSF spaces within normal limits in size for age. No significant midline shift or other mass effect.No extra-axial fluid collection. VASCULAR SYSTEM: Major intracranial flow voids are maintained. PARANASAL SINUSES AND MASTOID AIR CELLS: Maxillary sinus polyps or mucous retention cysts. ORBITS: Symmetric contents. No abnormal enhancement of the optic nerves. MRI/Brain W/WO Contrast IMPRESSION: Unremarkable examination. No evidence for significant signal abnormality in the brain or enhancing intracranial mass. Electronically Signed: Hayde Martínez MD at 8:49 EDT Reading Location ID and State: [facility] / [place] Tel , Service support , CC: Dr. Kaley Meier MD Road Supervisor Of Engines: Signed Normal [facility] CBC W/Diff, Automatedon 08-25 Absolute Lymph 3.22 X10 3/uL Normal 0.83-4.51 [facility] Comment on above: Order Comment: PER Damion MEIER ORDER Order Date: 08/03/23 Order Info: [id number] - CBCD Order Info: [id number] - SED Performed By: #### L 101.9900, L506.1000, L3100.5475, L503.6150, L100.0100, L503.6550, L501.9520, L501.6710, L509.3000, L503.0105 #### [facility] [address] [place], [place], [id number] Absolute Neut 3.8 X10 3/uL Normal 2.0-7.7 [facility] Comment on above: Order Comment: PER Damion MEIER ORDER Order Date: 08/03/23 Order Info: [id number] - CBCD Order Info: [id number] - SED Performed By: #### L 101.9900, L506.1000, L3100.5475, L503.6150, L100.0100, L503.6550, L501.9520, L501.6710, L509.3000, L503.0105 #### [facility] [address] [place], [address] Basophils/100 WBC (Bld) 0.6 % Normal 0-1 [facility] Comment on above: Order Comment: PER P T-[place] ORDER Order Date: 08/03/23 Order Info: [id number] - CBCD Order Info: [id number] - SED Performed By: #### L 101.9900, L506.1000, L3100.5475, L503.6150, L100.0100, L503.6550, L501.9520, L501.6710, L509.3000, L503.0105 #### [facility] [address] [place], [address] Eosinophils/100 WBC (Bld) 1.6 % Normal 0-5 [facility] Comment on above: Order Comment: PER P -[place] ORDER Order Date: 08/03/23 Order Info: [id number] - CBCD Order Info: [id number] - SED Performed By: #### L 101.9900, L506.1000, L3100.5475, L503.6150, L100.0100, L503.6550, L501.9520, L501.6710, L509.3000, L503.0105 #### [facility] [address] [place], [address] Erythrocyte distribution width (RBC) [Ratio] 12.5 % Normal 11.6-14.6 [facility] Comment on above: Order Comment: PER P T-[place] ORDER Order Date: 08/03/23 Order Info: [id number] - CBCD Order Info: [id number] - SED Performed By: #### L 101.9900, L506.1000, L3100.5475, L503.6150, L100.0100, L503.6550, L501.9520, L501.6710, L509.3000, L503.0105 #### [facility] [address] [place], [address] Hematocrit (Bld) [Volume fraction] 46.5 % Normal 40-54 [facility] Comment on above: Order Comment: PER P T-JUST [place] ORDER Order Date: 08/03/23 Order Info: [id number] - CBCD Order Info: [id number] - SED Performed By: #### L 101.9900, L506.1000, L3100.5475, L503.6150, L100.0100, L503.6550, L501.9520, L501.6710, L509.3000, L503.0105 #### [facility] [address] [place], [address] Hemoglobin (Bld) [Mass/Vol] 15.4 g/dL Normal 13.0-16.5 [facility] Comment on above: Order Comment: PER P T-[place] ORDER Order Date: 08/03/23 Order Info: [id number] - CBCD Order Info: [id number] - SED Performed By: #### L 101.9900, L506.1000, L3100.5475, L503.6150, L100.0100, L503.6550, L501.9520, L501.6710, L509.3000, L503.0105 #### [facility] [address] [place], [address] IG% 1.300 High 0.0-0.9 [facility] Comment on above: Order Comment: PER P T-MI [place] ORDER Order Date: 08/03/23 Order Info: [id number] - CBCD Order Info: [id number] - SED Result Comment: IG% - Immature Granulocytes (promyelocytes, myelocytes and metamyelocytes) > 1% indicates that a LEFT SHIFT is Present. Performed By: #### L 101.9900, L506.1000, L3100.5475, L503.6150, L100.0100, L503.6550, L501.9520, L501.6710, L509.3000, L503.0105 #### [facility] [address] [place], [address] Lymphocytes/100 WBC (Bld) 40.3 % Normal 19-41 [facility] Comment on above: Order Comment: PER P T-MI [place] ORDER Order Date: 08/03/23 Order Info: 183-04 - CBCD Order Info: [id number] - SED Performed By: #### L 101.9900, L506.1000, L3100.5475, L503.6150, L100.0100, L503.6550, L501.9520, L501.6710, L509.3000, L503.0105 #### [facility] [address] [place], [address] MCH (RBC) [Entitic mass] 30.1 pg Normal 27.0-32.0 [facility] Comment on above: Order Comment: PER P T-MI [place] ORDER Order Date: 08/03/23 Order Info: 183-04 - CBCD Order Info: [id number] - SED Performed By: #### L 101.9900, L506.1000, L3100.5475, L503.6150, L100.0100, L503.6550, L501.9520, L501.6710, L509.3000, L503.0105 #### [facility] [address] [place], [address] MCHC (RBC) [Mass/Vol] 33.1 g/dL Normal 32-36 [facility] Comment on above: Order Comment: PER P T-MI NEY ORDER Order Date: 08/03/23 Order Info: 183-04 - CBCD Order Info: [id number] - SED Performed By: #### L 101.9900, L506.1000, L3100.5475, L503.6150, L100.0100, L503.6550, L501.9520, L501.6710, L509.3000, L503.0105 #### [facility] [address] [place], [address] MCV (RBC) [Entitic vol] 91.0 fL Normal 80-94 [facility] Comment on above: Order Comment: PER P T-JUST RANNEY ORDER Order Date: 08/03/23 Order Info: 01807-26 - CBCD Order Info: [id number] - SED Performed By: #### L 101.9900, L506.1000, L3100.5475, L503.6150, L100.0100, L503.6550, L501.9520, L501.6710, L509.3000, L503.0105 #### [facility] [address] [place], [address] Monocytes/100 WBC (Bld) 9.4 % Normal 0-10 [facility] Comment on above: Order Comment: PER P T-JUST RANNEY ORDER Order Date: 08/03/23 Order Info: 01807-26 - CBCD Order Info: [id number] - SED Performed By: #### L 101.9900, L506.1000, L3100.5475, L503.6150, L100.0100, L503.6550, L501.9520, L501.6710, L509.3000, L503.0105 #### [facility] [address] [place], [address] Neutrophils/100 WBC (Bld) 46.8 % Low 47-70 [facility] Comment on above: Order Comment: PER P T-JUST RANNEY ORDER Order Date: 08/03/23 Order Info: 01807-26 - CBCD Order Info: [id number] - SED Performed By: #### L 101.9900, L506.1000, L3100.5475, L503.6150, L100.0100, L503.6550, L501.9520, L501.6710, L509.3000, L503.0105 #### [facility] [address] [place], [address] Nucleated RBC (Bld) [#/Vol] 0 10*3/uL Normal 0-5 [facility] Comment on above: Order Comment: PER P T-JUST RANNEY ORDER Order Date: 08/03/23 Order Info: 183- - CBCD Order Info: 24365-3 - SED Performed By: #### L 101.9900, L506.1000, L3100.5475, L503.6150, L100.0100, L503.6550, L501.9520, L501.6710, L509.3000, L503.0105 #### [facility] [address] [place], [address] Platelet mean volume (Bld) [Entitic vol] 10.2 fL Normal 6.2-12.0 [facility] Comment on above: Order Comment: PER P T-JUST [place] ORDER Order Date: 08/03/23 Order Info: 183-04 - CBCD Order Info: [id number] - SED Performed By: #### L 101.9900, L506.1000, L3100.5475, L503.6150, L100.0100, L503.6550, L501.9520, L501.6710, L509.3000, L503.0105 #### [facility] [address] [place], [place], [phone] (482) Platelets (Bld) [#/Vol] 336 10*3/uL Normal 150-450 [facility] Comment on above: Order Comment: PER P T-JUST RANNEY ORDER Order Date: 08/03/23 Order Info: 183-04 - CBCD Order Info: [id number] - SED Performed By: #### L 101.9900, L506.1000, L3100.5475, L503.6150, L100.0100, L503.6550, L501.9520, L501.6710, L509.3000, L503.0105 #### [facility] [address] [place], [address] RBC (Bld) [#/Vol] 5.11 10*6/uL Normal 4.6-6.2 [facility] Comment on above: Order Comment: PER P T-NEY ORDER Order Date: 08/03/23 Order Info: 01807-26 - CBCD Order Info: [id number] - SED Performed By: #### L 101.9900, L506.1000, L3100.5475, L503.6150, L100.0100, L503.6550, L501.9520, L501.6710, L509.3000, L503.0105 #### [facility] [address] [place], [address] RDW SD 41.8 fl Normal 35.1-43.9 [facility] Comment on above: Order Comment: PER P Oksana-MI [place] ORDER Order Date: 08/03/23 Order Info: 183-04 - CBCD Order Info: [id number] - SED Performed By: #### L 101.9900, L506.1000, L3100.5475, L503.6150, L100.0100, L503.6550, L501.9520, L501.6710, L509.3000, L503.0105 #### [facility] [address] [place], [place], [phone] (113) WBC (Bld) [#/Vol] 8.0 10*3/uL Normal 4.4-11.0 [facility] Comment on above: Order Comment: PER P T-[place] ORDER Order Date: 08/03/23 Order Info: [id number] - CBCD Order Info: [id number] - SED Performed By: #### L 101.9900, L506.1000, L3100.5475, L503.6150, L100.0100, L503.6550, L501.9520, L501.6710, L509.3000, L503.0105 #### [facility] [address] [place], [address] CREATININE FINGERSTICKon CREATININE WB < 1.0 Normal 0.70-1.30 [facility] Comment on above: Performed By: #### L 9100.0200 ####[facility] [address] [place], [address] EGFR WB > 60.0000 Normal >60 [facility] Comment on above: Performed By: #### L 9100.0200 ####[facility] [address] [place], [address] CRPon 09-07-2023 C-REACTIVE PROT < 2.90 Normal 0.0-3.0 [facility] Comment on above: Order Comment: JEFFERSON MEIER ORDER Order Date: 08/03/23 Order Info: 0786-1 - CMP Order Info: [id number] - LIPID Order Info: [id number] - CRP Order Info: 3015-06 - TSH Order Info: 2497-07 - FE Order Info: 2275-07 - VALERY Result Comment: C-Re active Protein (CRP) provides useful information for the diagnosis, therapy and monitoring of inflammatory processes and associated diseases. For the evaluation of Relative Risk for Cardiovascular Disease, a High Sensitivity CRP (HSCRP) should be ordered. Performed By: #### L 101.9900, L506.1000, L3100.5475, L503.6150, L100.0100, L503.6550, L501.9520, L501.6710, L509.3000, L503.0105 #### [facility] [address] [place], [address] Comprehensive Metabolic Prof ilon 09-07-2023 Albumin [Mass/Vol] 3.5 g/dL Normal 3.2-5.0 [facility] Comment on above: Order Comment: JEFFERSON MEIER ORDEROrder Date: 08/03/23Order Info: 0786-1 - CMPOrder Info: [id number] - LIPIDOrder Info: [id number] - CRPOrder Info: 3015-06 - TSHOrder Info: 2498-4 - FEOrder Info: 2275-07 - VALERY Performed By: #### L 500.4100, L501.9985, L500.4050 ####[facility] [address] [place], [address] Albumin/Globulin [Mass ratio] 1.0 {ratio} Normal 0.9-2.4 [facility] Comment on above: Order Comment: PER P T-JUST RANNEY ORDEROrder Date: 08/03/23Order Info: 0786-1 - CMPOrder Info: [id number] - LIPIDOrder Info: [id number] - CRPOrder Info: 3016-3 - TSHOrder Info: [id number] - FEOrder Info: 2275-07 - VALERY Performed By: #### L 500.4100, L501.9985, L500.4050 ####[facility] [address] [place], [address] ALK P 67 U/L Normal 45-117 [facility] Comment on above: Order Comment: PER P T-JUST RANNEY ORDEROrder Date: 08/03/23Order Info: 0786-1 - CMPOrder Info: [id number] - LIPIDOrder Info: [id number] - CRPOrder Info: 3015-3 - TSHOrder Info: 2494 - FEOrder Info: 2275-07 - VALERY Performed By: #### L 500.4100, L501.9985, L500.4050 ####[facility] [address] [place], [address] ALT [Catalytic activity/Vol] 38 U/L Normal 16-61 [facility] Comment on above: Order Comment: PER P T-JUST RANNEY ORDEROrder Date: 08/03/23Order Info: 0786-1 - CMPOrder Info: [id number] - LIPIDOrder Info: [id number] - CRPOrder Info: 3016-3 - TSHOrder Info: 2498-4 - FEOrder Info: 2275-07 - VALERY Performed By: #### L 500.4100, L501.9985, L500.4050 ####[facility] [address] [place], [address] AST [Catalytic activity/Vol] 23 U/L Normal 15-37 [facility] Comment on above: Order Comment: PER P T-NEY ORDEROrder Date: 08/03/23Order Info: 0786-1 - CMPOrder Info: [id number] - LIPIDOrder Info: [id number] - CRPOrder Info: 3016-3 - TSHOrder Info: 2494 - FEOrder Info: 4 - VALERY Performed By: #### L 500.4100, L501.9985, L500.4050 ####[facility] [address] [place], [address] Bilirubin [Mass/Vol] 0.40 mg/dL Normal 0.20-1.00 [facility] Comment on above: Order Comment: PER -[place] ORDEROrder Date: 08/03/23Order Info: 785-1 - CMPOrder Info: [id number] - LIPIDOrder Info: [id number] - CRPOrder Info: 63 - TSHOrder Info: 2494 - FEOrder Info: 2275-07 - VALERY Result Comment: For patients on eltrombopag therapy, use of Dimension [place] TBIL is not recommended. Performed By: #### L 500.4100, L501.9985, L500.4050 ####[facility] [address] [place], [address] BUN/CRE 21.6 RATIO High 10-20 [facility] Comment on above: Order Comment: PER P T-NEY ORDEROrder Date: 08/03/23Order Info: 86-1 - CMPOrder Info: [id number] - LIPIDOrder Info: [id number] - CRPOrder Info: 3016-3 - TSHOrder Info: 2494 - FEOrder Info: 4 - VALERY Performed By: #### L 500.4100, L501.9985, L500.4050 ####[facility] [address] [place], [address] CA,Total 9.2 mg/dL Normal 8.5-10.1 [facility] Comment on above: Order Comment: PER P T-JUST NEY ORDEROrder Date: 08/03/23Order Info: 86-1 - CMPOrder Info: [id number] - LIPIDOrder Info: [id number] - CRPOrder Info: 3016-3 - TSHOrder Info: 2498-4 - FEOrder Info: 2276-4 - VALERY Performed By: #### L 500.4100, L501.9985, L500.4050 ####[facility] [address] [place], [address] Chloride [Moles/Vol] 105 mmol/L Normal 98-107 [facility] Comment on above: Order Comment: PER P T-NEY ORDEROrder Date: 08/03/23Order Info: 86-1 - CMPOrder Info: [id number] - LIPIDOrder Info: [id number] - CRPOrder Info: 6-3 - TSHOrder Info: 2498-4 - FEOrder Info: 227-4 - VALERY Performed By: #### L 500.4100, L501.9985, L500.4050 ####[facility] [address] [place], [address] CO2 [Moles/Vol] 28.0 mmol/L Normal 21.0-32.0 [facility] Comment on above: Order Comment: PER P T-NEY ORDEROrder Date: 08/03/23Order Info: 86-1 - CMPOrder Info: [id number] - LIPIDOrder Info: [id number] - CRPOrder Info: 3016-3 - TSHOrder Info: 2498-4 - FEOrder Info: 2276-4 - VALERY Performed By: #### L 500.4100, L501.9985, L500.4050 ####[facility] [address] [place], [address] Creatinine [Mass/Vol] 0.88 mg/dL Normal 0.70-1.30 [facility] Comment on above: Order Comment: PER P T-JUST NEY ORDEROrder Date: 08/03/23Order Info: 0786-1 - CMPOrder Info: [id number] - LIPIDOrder Info: [id number] - CRPOrder Info: 3 - TSHOrder Info: 2494 - FEOrder Info: 2275-07 - VALERY Result Comment: The validity of the calculated GFR GFRAA in patients over 70 years has not been determined. Clinical correlation is essential. Performed By: #### L 500.4100, L501.9985, L500.4050 ####[facility] [address] [place], [address] EST GFR - AA 117 mL/min Normal >60 [facility] Comment on above: Order Comment: PER ORDEROrder Date: 08/03/23Order Info: 86-1 - CMPOrder Info: [id number] - LIPIDOrder Info: [id number] - CRPOrder Info: 3 - TSHOrder Info: 2494 - FEOrder Info: 2275-07 - VALERY Result Comment: Afri can [place] Citizen GFR Calc Performed By: #### L 500.4100, L501.9985, L500.4050 ####[facility] [address] [place], [address] GAP 3 Low 5-15 [facility] Comment on above: Order Comment: PER ORDEROrder Date: 08/03/23Order Info: 0786-1 - CMPOrder Info: [id number] - LIPIDOrder Info: [id number] - CRPOrder Info: 3 - TSHOrder Info: 2494 - FEOrder Info: 2275-07 - VALERY Performed By: #### L 500.4100, L501.9985, L500.4050 ####[facility] [address] [place], [address] GFR/1.73 sq M.predicted among non-blacks MDRD (S/P/Bld) [Vol rate/Area] 97 mL/min/{1.73_m2} Normal >60 [facility] Comment on above: Order Comment: PER P Brittny ORDEROrder Date: 08/03/23Order Info: 0786-1 - CMPOrder Info: [id number] - LIPIDOrder Info: [id number] - CRPOrder Info: 3016-3 - TSHOrder Info: 2494 - FEOrder Info: 4 - VALERY Result Comment: Non- GFR Calc Performed By: #### L 500.4100, L501.9985, L500.4050 ####[facility] [address] [place], [address] Globulin (S) [Mass/Vol] 3.6 g/dL Normal 2.2-4.2 [facility] Comment on above: Order Comment: PER Damion MEIER ORDEROrder Date: 08/03/23Order Info: 86-1 - CMPOrder Info: [id number] - LIPIDOrder Info: [id number] - CRPOrder Info: 6-3 - TSHOrder Info: 2494 - FEOrder Info: 2275-07 - VALERY Performed By: #### L 500.4100, L501.9985, L500.4050 ####[facility] [address] [place], [address] Glucose [Mass/Vol] 108 mg/dL High 74-106 [facility] Comment on above: Order Comment: PER Damion MEIER ORDEROrder Date: 08/03/23Order Info: 0786-1 - CMPOrder Info: [id number] - LIPIDOrder Info: [id number] - CRPOrder Info: 6-3 - TSHOrder Info: 2494 - FEOrder Info: 4 - VALERY Result Comment: Fast ing Glucose result from 100 to 125 mg/dL suggests IMPAIRED HOMEOSTASIS per A.D.A. criteria. Performed By: #### L 500.4100, L501.9985, L500.4050 ####[facility] [address] [place], [address] Potassium [Moles/Vol] 4.3 mmol/L Normal 3.5-5.1 [facility] Comment on above: Order Comment: PER Damion SANDERSNEY ORDEROrder Date: 08/03/23Order Info: 0786-1 - CMPOrder Info: [id number] - LIPIDOrder Info: [id number] - CRPOrder Info: 3016-3 - TSHOrder Info: 2498-4 - FEOrder Info: 2275-4 - VALERY Performed By: #### L 500.4100, L501.9985, L500.4050 ####[facility] [address] [place], [address] Sodium [Moles/Vol] 136 mmol/L Normal 136-145 [facility] Comment on above: Order Comment: PER P T- ORDEROrder Date: 08/03/23Order Info: 86-1 - CMPOrder Info: [id number] - LIPIDOrder Info: [id number] - CRPOrder Info: 3015-3 - TSHOrder Info: 2498-4 - FEOrder Info: 4 - VALERY Performed By: #### L 500.4100, L501.9985, L500.4050 ####[facility] [address] [place], [address] T PROT 7.1 g/dL Normal 6.4-8.2 [facility] Comment on above: Order Comment: PER - ORDEROrder Date: 08/03/23Order Info: 0786-1 - CMPOrder Info: [id number] - LIPIDOrder Info: [id number] - CRPOrder Info: 3015-3 - TSHOrder Info: 2498-4 - FEOrder Info: 227-4 - VALERY Performed By: #### L 500.4100, L501.9985, L500.4050 ####[facility] [address] [place], [address] Urea nitrogen [Mass/Vol] 19 mg/dL High 7-18 [facility] Comment on above: Order Comment: PER P T-NEY ORDEROrder Date: 08/03/23Order Info: 0786-1 - CMPOrder Info: [id number] - LIPIDOrder Info: [id number] - CRPOrder Info: 3016-3 - TSHOrder Info: 2498-4 - FEOrder Info: 2275-4 - VALERY Performed By: #### L 500.4100, L501.9985, L500.4050 ####[facility] [address] [place], [address] Erythrocyte Sed Rateon 09-06 SED RATE 2 mm/hr Normal 0-20 [facility] Comment on above: Order Comment: PER Damion MEIER ORDER Order Date: 08/03/23 Order Info: 0184-1 - CBCD Order Info: [id number] - SED Performed By: #### L 101.9900, L506.1000, L3100.5475, L503.6150, L100.0100, L503.6550, L501.9520, L501.6710, L509.3000, L503.0105 #### [facility] [address] [place], [address] Ferritinon 09-07-2023 Ferritin [Mass/Vol] 215 ng/mL Normal 26-388 [facility] Comment on above: Order Comment: PER Damion MEIER ORDEROrder Date: 08/03/23Order Info: 0786-1 - CMPOrder Info: [id number] - LIPIDOrder Info: [id number] - CRPOrder Info: 3016-3 - TSHOrder Info: 2498-4 - FEOrder Info: 2275-4 - VALERY Performed By: #### L 101.9900, L506.1000, L3100.5475, L503.6150, L100.0100, L503.6550, L501.9520, L501.6710, L509.3000, L503.0105 ####[facility] [address] [place], [address] Hemoglobin A1con 09-07-2023 HbA1c (Bld) [Mass fraction] 5.5 % Normal 3.8-5.6 [facility] Comment on above: Order Comment: PER Damion MEIER ORDEROrder Date: 01/29/23Order Info: [id number] - A1C Result Comment: Norm al < 5.7 % Prediabetic 5.7 - 6.4 % Diabetic >or= 6.5 % Please note range changes. Performed By: #### L 500.4100, L501.9985, L500.4050 ####[facility] [address] [place], [address] Ironon 09-07-2023 Iron [Mass/Vol] 91 ug/dL Normal 65-175 [facility] Comment on above: Order Comment: PER P T-JUST NEY ORDEROrder Date: 08/03/23Order Info: 07-1 - CMPOrder Info: [id number] - LIPIDOrder Info: [id number] - CRPOrder Info: 3 - TSHOrder Info: 2497-07 - FEOrder Info: 2275-07 - VALERY Performed By: #### L 101.9900, L506.1000, L3100.5475, L503.6150, L100.0100, L503.6550, L501.9520, L501.6710, L509.3000, L503.0105 ####[facility] [address] [place], [address] Lipid Profileon 09-07-2023 Cholesterol [Mass/Vol] 162 mg/dL Normal 200 [facility] Comment on above: Order Comment: PER [facility] NEY ORDEROrder Date: 08/03/23Order Info: 785-1 - CMPOrder Info: [id number] - LIPIDOrder Info: [id number] - CRPOrder Info: 3 - TSHOrder Info: 2497-07 - FEOrder Info: 2275-07 - VALERY Result Comment: <200 mg/dL Desirable 200-240 mg/dL Borderline >240 mg/dL High Risk Performed By: #### L 500.4100, L501.9985, L500.4050 ####[facility] [address] [place], [address] Cholesterol in HDL [Mass/Vol] 36 mg/dL Low [facility] Comment on above: Order Comment: PER P T-JUST NEY ORDEROrder Date: 08/03/23Order Info: 86-1 - CMPOrder Info: [id number] - LIPIDOrder Info: [id number] - CRPOrder Info: 6-3 - TSHOrder Info: 2497-07 - FEOrder Info: 2275-07 - VALERY Result Comment: The drugs N-Acetylcysteine and Metamizole may falsely depress this assay. Reference Range HDL <40 mg/dL Low HDL Cholesterol HDL >or= 60 mg/dL High HDL Cholesterol Performed By: #### L 500.4100, L501.9985, L500.4050 ####[facility] [address] [place], [address] Cholesterol in LDL [Mass/Vol] 80 mg/dL Normal 0-130 [facility] Comment on above: Order Comment: PER Damion JOHANA [place] ORDEROrder Date: 08/03/23Order Info: 86-1 - CMPOrder Info: [id number] - LIPIDOrder Info: [id number] - CRPOrder Info: 3 - TSHOrder Info: 2497-07 - FEOrder Info: 2275-07 - VALERY Performed By: #### L 500.4100, L501.9985, L500.4050 ####[facility] [address] [place], [address] Cholesterol in VLDL [Mass/Vol] 46 mg/dL High 5-40 [facility] Comment on above: Order Comment: PER DaniaMI NEY ORDEROrder Date: 08/03/23Order Info: 86-1 - CMPOrder Info: [id number] - LIPIDOrder Info: [id number] - CRPOrder Info: 3015-3 - TSHOrder Info: [id number] - FEOrder Info: 2275-07 - VALERY Performed By: #### L 500.4100, L501.9985, L500.4050 ####[facility] [address] [place], [address] Triglyceride [Mass/Vol] 232 mg/dL High [facility] Comment on above: Order Comment: [facility] ORDEROrder Date: 08/03/23Order Info: 0786-1 - CMPOrder Info: [id number] - LIPIDOrder Info: [id number] - CRPOrder Info: 3016-3 - TSHOrder Info: 2498-4 - FEOrder Info: 2276-4 - VALERY Result Comment: The drugs N-Acetylcysteine and Metamizole may falsely depress this assay. Serum Triglycerides Reference Interval Normal <150 mg/dL Borderline high 150 - 199 mg/dL High 200 - 499 mg/dL Very High > or = 500 mg/dL Performed By: #### L 500.4100, L501.9985, L500.4050 ####[facility] [address] [place], [place], [address] Testosterone, Serum Totalon 09-07-2023 Testosterone [Mass/Vol] 313.73 ng/dL Normal [facility] Comment on above: Order Comment: PER Damion MEIER ORDEROrder Date: 08/03/23Order Info: 2132-9 - K49Skmrv Info: 27018-5 - MVOD22Swrjc Info: 2986-8 - DARIO Result Comment: CENT RAL 90% REFERENCE RANGES MALE AGE <50 197.44 - 669.58 ng/dL MALE AGE > or = 50 187.72 - 684.19 ng/dL FEMALE AGE <50 8.38 - 35.01 ng/dL FEMALE AGE > or = 50 <7.00 - 35.92 ng/dL Effective as of 11/20/20 Performed By: #### L 101.9900, L506.1000, L3100.5475, L503.6150, L100.0100, L503.6550, L501.9520, L501.6710, L509.3000, L503.0105 ####[facility] [address] [place], [place], [address] Thyroid Stim Hormone (TSH)on 09-07-2023 TSH 0.64 uIU/mL Normal 0.358-3.74 [facility] Comment on above: Order Comment: PER Damion MEIER ORDER Order Date: 08/03/23 Order Info: 0786-1 - CMP Order Info: [id number] - LIPID Order Info: [id number] - CRP Order Info: 3016-3 - TSH Order Info: 2498-4 - FE Order Info: 2276-4 - VALERY Performed By: #### L 101.9900, L506.1000, L3100.5475, L503.6150, L100.0100, L503.6550, L501.9520, L501.6710, L509.3000, L503.0105 #### [facility] [address] [place], [place], [address] Vitamin B12on 09-07-2023 Cobalamin (Vitamin B12) [Mass/Vol] 301 pg/mL Normal 211-911 [facility] Comment on above: Order Comment: JEFFERSON MEIER ORDEROrder Date: 08/03/23Order Info: 2131-12 - U36Rshza Info: 13609-0 - [id number] Info: [id number] - DARIO Performed By: #### L 101.9900, L506.1000, L3100.5475, L503.6150, L100.0100, L503.6550, L501.9520, L501.6710, L509.3000, L503.0105 ####[facility] [address] [facility] [place], [address] Vitamin D,25 Hydroxyon 09-06 Vitamin D 25-OH 37.3 ng/mL Normal [facility] Comment on above: Order Comment: JEFFERSON MEIER ORDEROrder Date: 08/03/23Order Info: 2131-12 - Z26Wbcde Info: 18388-4 - [id number] Info: 2986- - DARIO Result Comment: Allyssa min D 25(OH) Status Range Deficiency <20 ng/mL (50nmol/L) Insufficiency 20 - 30 ng/mL (50 - 75 nmol/L) Sufficiency 30 - 100 ng/mL (75 - 250 nmol/L) Toxicity >100 ng/mL (>250 nmol/L) Performed By: #### L 101.9900, L506.1000, L3100.5475, L503.6150, L100.0100, L503.6550, L501.9520, L501.6710, L509.3000, L503.0105 ####[facility] [facility] [id number] [place], [address] Colonoscopy Reporton 024 Colonoscopy Report [facility] Medical Records Department [address] [place] [address] Colonoscopy Report MR#: [id number] Acct: [id number] Name: DEREK CERDA Rep #: [id number] : 1970 52 From: Jj Kovacs MD PCP: Dr. Kaley Meier MD Status[place] [facility] [place] Patient Name: Derek Cerda Procedure Date: 09/03/2023 8:13 AM Date of : 1970 Age: 52 Procedure: Colonoscopy Indications: Screening for colorectal malignant neoplasm Providers: Jj Kovacs MD Referring MD: Javed Meier Medicines: See the Anesthesia note for documentation of the administered medications Patient Profile: Refer to note in patient chart for documentation of history and physical. Last Colonoscopy: none. The patient's first colonoscopy is today. Complications: No immediate complications. Estimated blood loss: Minimal. Procedure: Pre-Anesthesia Assessment: - The heart rate, respiratory rate, oxygen saturations, blood pressure, adequacy of pulmonary ventilation, and response to care were monitored throughout the procedure. After I obtained informed consent, the scope was passed under direct vision. Throughout the procedure, the patient's blood pressure, pulse, and oxygen saturations were monitored continuously. The Colonoscope was introduced through the anus and advanced to the cecum, identified by appendiceal orifice and ileocecal valve. The colonoscopy was performed without difficulty. The patient tolerated the procedure well. The quality of the bowel preparation was adequate to identify polyps. Scope In: 8:31:08 AM Scope Withdrawal Time 0 hours 21 minutes 12 seconds Scope Out: 8:57:46 AM Total Procedure Duration Time 0 hours 26 minutes 38 seconds Findings: The perianal and digital rectal examinations were normal. A few small-mouthed diverticula were found in the sigmoid colon. No biopsies or other specimens were collected for this exam. A 3 mm, non-bleeding polyp was found in the distal sigmoid colon. The polyp was semi-pedunculated. The polyp was removed with a hot snare. Resection and retrieval were complete. Estimated blood loss: none. A 3 mm polyp was found in the sigmoid colon. The polyp was semi-sessile. Biopsies were taken with a cold forceps for histology. Estimated blood loss was minimal. The exam was otherwise without abnormality on direct and retroflexion views. Impression: - Diverticulosis in the sigmoid colon. No specimens collected. - One 3 mm, non-bleeding polyp in the distal sigmoid colon, removed with a hot snare. Resected and retrieved. - One 3 mm polyp in the sigmoid colon. Biopsied. - The examination was otherwise normal on direct and retroflexion views. Recommendation: - Discharge patient to home (via wheelchair). - Resume previous diet today. - Continue present medications. - Await pathology results. - Repeat colonoscopy date to be determined after pending pathology results are reviewed for surveillance based on pathology results. - Telephone my office for pathology results in 1 week. Procedure Code(s): --- Professional --- 11137, Colonoscopy, flexible; with removal of tumor(s), polyp(s), or other lesion(s) by snare technique 82515, 59, Colonoscopy, flexible; with biopsy, single or multiple Diagnosis Code(s): --- Professional --- Z12.11, Encounter for screening for malignant neoplasm of colon D12.5, Benign neoplasm of sigmoid colon K57.30, Diverticulosis of large intestine without perforation or abscess without bleeding CPT copyright 2021 [employer]. All rights reserved. The codes documented in this report are preliminary and upon paint roller covermaker review may be revised to meet current compliance requirements. Jj Kovacs MD 09/03/2023 9:05:50 AM This report has been signed electronically. Number of Addenda: 0 Note Initiated On: 09/03/2023 8:13 AM 09/03/23 0906 Date Jj Kovacs MD Cosigner Signature: Date (if indicated) CC: Dr. Kaley Meier MD; Dr. Jj Kovacs MD Date Dictated: 09/03/23812 Date Transcribed: Road Supervisor Of Engines: PRINCE Signed Normal [facility] Surgery Specimen Level Yeison 09-03-2023 Surgery Specimen Level IV Patient Age/Sex Location Account Attending Physician ZAIDA,JOHN A 52/M EN [id number] Dr. Jj Kovacs MD Specimen: [id number] Received: 09/03/23 Status: JAMEL Horvath Num: [id number] Spec Type: COLON BX Subm Dr: Dr. Jj Kovacs MD HEADER OPERATION: Colonoscopy, polypectomy PRE-OP DIAGNOSIS: Encounter for screening for malignant neoplasm of colon TISSUE SUBMITTED: A- Distal sigmoid polyp, B- Sigmoid polyp biopsy MICROSCOPIC DIAGNOSIS A. Distal sigmoid polyp, polypectomy: Tubular adenoma. B. Sigmoid polyp, biopsy: Fragments of colonic mucosa, no pathologic diagnosis. [facility] 09/04/2023 MICROSCOPIC DESCRIPTION Slides are reviewed. GROSS DESCRIPTION A. Received in fixative is one container labeled with the patient's name and designated Distal sigmoid polyp. The specimen consists of one irregular fragment of light adame soft tissue that measures 0.2 x 0.2 x 0.1 cm. The specimen is totally submitted in one cassette. B. Received in fixative is one container labeled with the patient's name and designated Sigmoid polyp biopsy. The specimen consists of multiple irregular fragments of light adame soft tissue that in aggregate measure 0.8 x 0.3 x 0.1 cm. The specimen is totally submitted in one cassette. [facility] 09/03/23 TC:1 CPT:56880z0 Patient Age/Sex Location Account Attending Physician DEREK CERDA 52/M EN [id number] Dr. Jj Kovacs MD Signed (signature on file) Dr. Abdullahi Rosa MD 09/04/23 1059 Normal [facility] Comment on above: Performed By: #### P SUIV #### [facility] Laboratory [facility] [place], [address] No Panel InformationOrdered By: Gustabo Salas on 06-08-2023 Prostate Specific Antigen Screen 1.13 ng/mL 0.00-4.00 [facility] Comment on above: This test was perfor med using the TPSA assay method for theDimension chemistry system. Values obtained with differentassay methods cannot be used interchangably.When changing PSA assays in the course of monitoring apatient, additional sequential testing should be carriedout to confirm baseline values. Culture, urineOrdered By: Margarita Araujo on 03-13-2023 Bacteria identified Cx Nom (U) Culture exhibits no growth. [facility] Laboratory - Chemistry and C hemistry - challengeon 03-13-2023 Bilirubin Ql (U) Negative [facility] Glucose Ql (U) Negative [facility] Ketones Ql (U) Small (15+) [facility] pH (U) 6.0 [pH] [facility] Specific gravity (U) [Rel density] 1.025 [facility] Urobilinogen (U) [Mass/Vol] 0.4329757 mg/dL [facility] Laboratory - Hematology and Cell countson 03-13-2023 Hemoglobin Ql (U) Negative [facility] Laboratory - Specimen inform ationon 03-13-2023 Clarity (U) Slightly Hazy [facility] Color (U) Yellow [facility] Laboratory - Urinalysison Nitrite Ql (U) Negative [facility] Protein Ql (U) Negative [facility] No Panel Informationon 03-13 Urine Leukocytes Negatve [facility] Urine Non-Hemolyzed Blood Negative [facility] Laboratory - Microbiology an d Antimicrobial susceptibilityon 02-06-2023 S. pyogenes Ag IA Ql (Unsp spec) Negative [facility] Culture, urineOrdered By: Mickey Harvey on 05-21-2022 Bacteria identified Cx Nom (U) Culture exhibits no growth. [facility] Basophil percentageOrdered B y: Mariel Harvey on 05-19-2022 Basophil percentage 0 SEEN /hpf 0-5 [facility] Bilirubin Test strip Ql (U)O rdered By: Mariel Harvey on 05-19-2022 Bilirubin Ql (U) Negative Negative [facility] Ketones Test strip Ql (U)Ord ered By: Mariel Harvey on 05-19-2022 Ketones Ql (U) Negative Negative [facility] Mucus LM Ql (Urine sed)Order ed By: Mariel Harvey on 05-19-2022 Mucus Ql (Urine sed) 0 SEEN /hpf [facility] Nitrite Test strip Ql (U)Ord ered By: Mariel Harvey on 05-19-2022 Nitrite Ql (U) Negative Negative [facility] Protein Test strip Ql (U)Ord ered By: Mariel Harvey on 05-19-2022 Protein Ql (U) Negative Negative [facility] Squamous epithelial cells de tection in urine sediment by light microscopyOrdered By: Mariel Harvey on 05-19-2022 Epithelial cells.squamous LM Ql (Urine sed) 0 SEEN /hpf 0-5 [facility] Urine blood detectionOrdered By: Mariel Harvey on 05-19-2022 RBC Ql (U) Negative Negative [facility] RBC Ql (U) 0 SEEN /hpf 0-5 [facility] Urine clarityOrdered By: Ginny Harvey on 05-19-2022 Clarity (U) Clear Clear [facility] Urine color determinationOrd ered By: Mariel Harvey on 05-19-2022 Color (U) Straw Yellow [facility] Urine glucose detectionOrder ed By: Mariel Harvey on 05-19-2022 Glucose Ql (U) Normal mg/dl Normal [facility] Urine leukocyte esterase det ection by dipstickOrdered By: Mariel Harvey on 05-19-2022 Leukocyte esterase Test strip Ql (U) Negative Negative [facility] Urine pHOrdered By: Mariel Harvey on 05-19-2022 pH (U) 6.0 [pH] 5.0 - 8.0 [facility] Urine sediment bacteria coun t by microscopy (number/high power field)Ordered By: Mariel Harvey on 05-19-2022 Bacteria LM.HPF (Urine sed) [#/Area] 0 /[HPF] None Seen [facility] Urine specific gravity measu rementOrdered By: Mariel Harvey on 05-19-2022 Specific gravity (U) [Rel density] 1.015 1.002-1.030 [facility] Urobilinogen Auto test strip Ql (U)Ordered By: Mariel Harvey on 05-19-2022 Urobilinogen Ql (U) Normal mg/dl Normal [facility] Laboratory - Chemistry and C hemistry - challengeon 05-18-2022 Bilirubin Ql (U) Negative [facility] Glucose Ql (U) Negative [facility] Ketones Ql (U) Negative [facility] pH (U) 6.0 [pH] [facility] Specific gravity (U) [Rel density] 1.010 [facility] Urobilinogen (U) [Mass/Vol] Negative [facility] Laboratory - Hematology and Cell countson 05-18-2022 Hemoglobin Ql (U) Negative [facility] Laboratory - Specimen inform ationon 05-18-2022 Clarity (U) Clear [facility] Color (U) YELLOW [facility] Laboratory - Urinalysison Nitrite Ql (U) Negative [facility] Protein Ql (U) Negative [facility] No Panel Informationon 05-18 Urine Leukocytes Negatve [facility] Urine Non-Hemolyzed Blood Negative [facility] Basophil percentageOrdered B y: Lilli Haley on 05-14-2022 Bilirubin [Mass/Vol] 0.40 mg/dL 0.20-1.00 [facility] Comment on above: For patients on eltr ombopag therapy, use of Dimension [place] TBIL is not recommended. Cholesterol [Mass/Vol] 206 mg/dL <200 [facility] Comment on above: <200 mg/dL Desirable 200-240 mg/dL Borderline >240 mg/dL High Risk Protein [Mass/Vol] 7.7 g/dL 6.4-8.2 [facility] Triglyceride [Mass/Vol] 252 mg/dL <199 [facility] Comment on above: The drugs N-Acetylcy steine and Metamizole may falsely depress this assay.Serum Triglycerides Reference Interval Normal <150 mg/dL Borderline high 150 - 199 mg/dL High 200 - 499 mg/dL Very High > or = 500 mg/dL Direct bilirubinOrdered By: Lilli Haley on 05-14-2022 Bilirubin.direct [Mass/Vol] 0.08 mg/dL 0.00-0.30 [facility] Laboratory - Chemistry and C hemistry - challengeOrdered By: Lilli Haley on 05-14-2022 ALP [Catalytic activity/Vol] 61 U/L 45-117 [facility] ALT [Catalytic activity/Vol] 50 U/L 16-61 [facility] Globulin (S) [Mass/Vol] 3.8 g/dL 2.2-4.2 [facility] Serum or plasma albumin julianne urement (mass/volume)Ordered By: Lilli Haley on 05-14-2022 Albumin [Mass/Vol] 3.9 g/dL 3.2-5.0 [facility] Serum or plasma cholesterol in HDL measurement (mass/volume)Ordered By: Lilli Haley on 05-14-2022 Cholesterol in HDL [Mass/Vol] 36 mg/dL >40 [facility] Comment on above: The drugs N-Acetylcy steine and Metamizole may falsely depress this assay. Reference Range HDL <40 mg/dL Low HDL Cholesterol HDL >or= 60 mg/dL High HDL Cholesterol Serum or plasma cholesterol in VLDL measurement (mass/volume)Ordered By: Lilli Haley on 05-14-2022 Cholesterol in VLDL [Mass/Vol] 50 mg/dL 5-40 [facility] Serum or plasma low density lipoprotein (LDL) cholesterol measurement (mass/volume)Ordered By: Lilli Haley on 05-14-2022 Cholesterol in LDL [Mass/Vol] 120 mg/dL 0-130 [facility] Thin prep Papanicolaou smear with manual screeningOrdered By: Lilli Haley on 05-14-2022 Thin prep Papanicolaou smear with manual screening 22 U/L 15-37 [facility] Absolute lymphocyte countOrd ered By: Dr. Mohan on 05-07-2022 Lymphocytes Auto (Unsp spec) [#/Vol] 3.23 10*3/uL 0.83-4.51 [facility] Basophil percentageOrdered B y: Dr. Mohan on 05-07-2022 Basophil percentage 0 SEEN /hpf 0-5 [facility] Basophils/100 WBC (Bld) 0.4 % 0-1 [facility] Bilirubin [Mass/Vol] 0.50 mg/dL 0.20-1.00 [facility] Comment on above: For patients on eltr ombopag therapy, use of Dimension [place] TBIL is not recommended. Chloride [Moles/Vol] 106 mmol/L 98-107 [facility] Eosinophils/100 WBC (Bld) 1.5 % 0-5 [facility] Glucose [Mass/Vol] 108 mg/dL 74-106 [facility] Comment on above: Fasting Glucose resu lt from 100 to 125 mg/dL suggests IMPAIRED HOMEOSTASIS per A.D.A. criteria. Neutrophils (Bld) [#/Vol] 3.4 10*3/uL 2.0-7.7 [facility] Neutrophils/100 WBC (Bld) 45.0 % 47-70 [facility] Potassium [Moles/Vol] 4.3 mmol/L 3.5-5.1 [facility] Protein [Mass/Vol] 7.4 g/dL 6.4-8.2 [facility] Sodium [Moles/Vol] 136 mmol/L 136-145 [facility] WBC (Bld) [#/Vol] 7.5 10*3/uL 4.4-11.0 [facility] Bilirubin Test strip Ql (U)O rdered By: Dr. Mohan on 05-07-2022 Bilirubin Ql (U) Negative Negative [facility] Blood erythrocytes count (nu mber/volume)Ordered By: Dr. Mohan on 05-07-2022 RBC (Bld) [#/Vol] 5.18 10*6/uL 4.6-6.2 [facility] Blood hemoglobin measurement (mass/volume)Ordered By: Dr. Mohan on 05-07-2022 Hemoglobin (Bld) [Mass/Vol] 15.6 g/dL 13.0-16.5 [facility] Blood lymphocytes/100 leukoc ytesOrdered By: Dr. Mohan on 05-07-2022 Lymphocytes/100 WBC (Bld) 42.8 % 19-41 [facility] Blood monocytes/100 leukocyt esOrdered By: Dr. Mohan on 05-07-2022 Monocytes/100 WBC (Bld) 9.9 % 0-10 [facility] Blood platelet mean volumeOr dered By: Dr. Mohan on 05-07-2022 Platelet mean volume (Bld) [Entitic vol] 9.2 fL 6.2-12.0 [facility] Determination of erythrocyte mean corpuscular volume (MCV)Ordered By: Dr. Mohan on 05-07-2022 MCV (RBC) [Entitic vol] 88.8 fL 80-94 [facility] Hematocrit Auto (Bld) [Volum e fraction]Ordered By: Dr. Mohan on 05-07-2022 Hematocrit (Bld) [Volume fraction] 46.0 % 40-54 [facility] Ketones Test strip Ql (U)Ord ered By: Dr. Mohan on 05-07-2022 Ketones Ql (U) Negative Negative [facility] Laboratory - Chemistry and C hemistry - challengeOrdered By: Dr. Mohan on 05-07-2022 ALP [Catalytic activity/Vol] 59 U/L 45-117 [facility] ALT [Catalytic activity/Vol] 58 U/L 16-61 [facility] CO2 [Moles/Vol] 23.0 mmol/L 21.0-32.0 [facility] Globulin (S) [Mass/Vol] 3.8 g/dL 2.2-4.2 [facility] Urea nitrogen/Creatinine [Mass ratio] 20.2 mg/mg 10-20 [facility] Laboratory - Hematology and Cell countsOrdered By: Dr. Mohan on 05-07-2022 Erythrocyte distribution width (RBC) [Entitic vol] 39.0 fL 35.1-43.9 [facility] Erythrocyte distribution width (RBC) [Ratio] 11.9 % 11.6-14.6 [facility] Immature granulocytes/100 WBC (Bld) 0.400 % 0.0-0.9 [facility] Comment on above: IG% - Immature Granu locytes (promyelocytes, myelocytes and metamyelocytes) > 1% indicates that a LEFT SHIFT is Present. MCH (RBC) [Entitic mass] 30.1 pg 27.0-32.0 [facility] Nucleated RBC/100 WBC (Bld) [Ratio] 0 % 0-5 [facility] MCHC Auto (RBC) [Mass/Vol]Or dered By: Dr. Mohan on 05-07-2022 MCHC (RBC) [Mass/Vol] 33.9 g/dL 32-36 [facility] Mucus LM Ql (Urine sed)Order ed By: Dr. Mohan on 05-07-2022 Mucus Ql (Urine sed) 0 SEEN /hpf [facility] Nitrite Test strip Ql (U)Ord ered By: Dr. Mohan on 05-07-2022 Nitrite Ql (U) Negative Negative [facility] No Panel InformationOrdered By: Dr. Mohan on 05-07-2022 Estimated Creatinine Clearance Calc 76.68 ml/min [facility] Estimated GFR (MDRD) Amer 97 mL/min >60 [facility] Comment on above: GFR Calc Estimated GFR (MDRD) Non-Af Amer 80 mL/min >60 [facility] Comment on above: Non- GFR Calc Troponin I High Sensitivity 7 pg/mL 3.0-78.0 [facility] Comment on above: Please Note: New Dario t Units and Gender Specific Reference Ranges. For more information see Policy Stat Procedure [place] High Sensitivity Troponin (TNIH) and attachments. Platelets bldOrdered By: Dr. Mohan on 05-07-2022 Platelets (Bld) [#/Vol] 309 10*3/uL 150-450 [facility] Protein Test strip Ql (U)Ord ered By: Dr. Mohan on 05-07-2022 Protein Ql (U) Negative Negative [facility] Serum or plasma albumin julianne urement (mass/volume)Ordered By: Dr. Mohan on 05-07-2022 Albumin [Mass/Vol] 3.6 g/dL 3.2-5.0 [facility] Serum or plasma albumin/glob ulin mass ratioOrdered By: Dr. Mohan on 05-07-2022 Albumin/Globulin [Mass ratio] 0.9 {ratio} 0.9-2.4 [facility] Serum or plasma calcium julianne urement (mass/volume)Ordered By: Dr. Mohan on 05-07-2022 Calcium [Mass/Vol] 8.9 mg/dL 8.5-10.1 [facility] Serum or plasma creatinine m easurement (mass/volume)Ordered By: Dr. Mohan on 05-07-2022 Creatinine [Mass/Vol] 1.04 mg/dL 0.70-1.30 [facility] Comment on above: The validity of the calculated GFR & GFRAA in patients over 70 years has not been determined. Clinical correlation is essential. Serum or plasma urea nitroge n measurement (mass/volume)Ordered By: Dr. Mohan on 05-07-2022 Urea nitrogen [Mass/Vol] 21 mg/dL 7-18 [facility] Squamous epithelial cells de tection in urine sediment by light microscopyOrdered By: Dr. Mohan on 05-07-2022 Epithelial cells.squamous LM Ql (Urine sed) 0 SEEN /hpf 0-5 [facility] Thin prep Papanicolaou smear with manual screeningOrdered By: Dr. Mohan on 05-07-2022 Thin prep Papanicolaou smear with manual screening 40 U/L 15-37 [facility] Thin prep Papanicolaou smear with manual screening 7 5-15 [facility] Urine blood detectionOrdered By: Dr. Mohan on 05-07-2022 RBC Ql (U) Negative Negative [facility] RBC Ql (U) 0 SEEN /hpf 0-5 [facility] Urine clarityOrdered By: Dr. Mohan on 05-07-2022 Clarity (U) Clear Clear [facility] Urine color determinationOrd ered By: Dr. Mohan on 05-07-2022 Color (U) Yellow Yellow [facility] Urine glucose detectionOrder ed By: Dr. Mohan on 05-07-2022 Glucose Ql (U) Normal mg/dl Normal [facility] Urine leukocyte esterase det ection by dipstickOrdered By: Dr. Mohan on 05-07-2022 Leukocyte esterase Test strip Ql (U) Negative Negative [facility] Urine pHOrdered By: Dr. Jacklyn bautista on 05-07-2022 pH (U) 6.5 [pH] 5.0 - 8.0 [facility] Urine sediment bacteria coun t by microscopy (number/high power field)Ordered By: Dr. Mohan on 05-07-2022 Bacteria LM.HPF (Urine sed) [#/Area] 0 /[HPF] None Seen [facility] Urine specific gravity measu rementOrdered By: Dr. Mohan on 05-07-2022 Specific gravity (U) [Rel density] 1.020 1.002-1.030 [facility] Urobilinogen Auto test strip Ql (U)Ordered By: Dr. Mohan on 05-07-2022 Urobilinogen Ql (U) Normal mg/dl Normal [facility] CT CARDIAC SCORINGon 12-27-[address] CARDIAC SCORING Patient Name: DEREK CERDA STUDY: CT CARDIAC SCORING; 04/22/2021 2:55 pm INDICATION: Hyperlipidemia, unspecified. COMPARISON: None. ACCESSION NUMBER(S): [id number] ORDERING CLINICIAN: KALEY MEIER TECHNIQUE: Using prospective ECG gating, CT scan of the coronary arteries was performed without intravenous contrast. Coronary calcium scoring was performed according to the method of Agatston. FINDINGS: The score and distribution of calcium in the coronary arteries is as follows: LM 0, LAD 3.18, LCx 0, RCA 4.37, Total 7.55 The visualized mid/lower ascending thoracic aorta measures 3.7 cm in diameter. The heart is normal in size. No pericardial effusion is present. No gross evidence of mediastinal or hilar lymphadenopathy or masses is identified. The visualized segments of the lungs are normally expanded. The visualized subdiaphragmatic structures appear intact. Fatty liver. IMPRESSION: 1. Coronary artery calcium score of 7.55*. 2. Fatty liver. *Coronary artery calcium scoring may be helpful in predicting the risk for future coronary heart disease events. According to the [employer] Clinical Expert Consensus Task Force, such testing provides important prognostic information in patients with more than one coronary heart disease risk factor. The coronary artery calcium score correlates with the annual risk of a non-fatal myocardial infarction or coronary heart disease . Coronary artery score Annual Risk 0-99 0.4% 100-399 1.3% >400 2.4% These three breakpoints correspond to lower, intermediate and high risk states for future coronary events. Such information should be used, along with appropriate clinical judgment, to make decisions regarding the intensity of risk factor management strategies to treat blood lipids and to modify other non-lipid coronary risk factors. Reference: Bruin P et al. Circulation. 2007; 115:402-426 Electronically signed by: PARISH NAYAK MD [facility] Vital Signs Date Time Vital Sign Value Performing Clinician Ashli bar 12-13-2024 07:15-0400 Body height 170.[address] Kaley Meier MD Work Phone: [facility] 12-13-2024 07:15-0400 Body mass index (BMI) [Ratio] 30.8 kg/m2 Dr. Kaley Meier MD Work Phone: [facility] 12-13-2024 07:15-0400 Body temperature 97.7 [degF] Dr. Kaley Meier MD Work Phone: 1(885)053-084490 [place] [address] 12-13-2024 07:15-0400 Body weight 89.[address] Kaley Meier MD Work Phone: 3(416)247-593490 [place] [address] 12-13-2024 07:15-0400 Heart rate 70 /min Dr. Kaely Meier MD Work Phone: 3(683)312-150690 [place] [address] 12-13-2024 07:15-0400 SaO2% (BldA) [Mass fraction] 99 % Dr. Kaley Meier MD Work Phone: 5(451)774-507490 [place] [address] 09-03-2023 09:15-0400 Body temperature 97.5 [degF] Dr. Kaley Meier Work Phone: 0(156)097-290090 [place] [address] 09-03-2023 09:15-0400 Diastolic blood pressure 66 mm[Hg] Dr. Kaley Meier Work Phone: 4(317)872-682590 [place] [address] 09-03-2023 09:15-0400 Heart rate 70 /min Dr. Kaley Meier Work Phone: 7(651)348-959390 [place] [address] 09-03-2023 09:15-0400 Respiratory rate 16 /min Dr. Kaley Meier Work Phone: 8(434)517-376490 [place] [address] 09-03-2023 09:15-0400 SaO2% (BldA) [Mass fraction] 95 % Dr. Kaley Meier Work Phone: 3(749)725-240090 [place] [address] 09-03-2023 09:15-0400 Systolic blood pressure 96 mm[Hg] Dr. Kaley Meier Work Phone: 0(642)525-031990 [place] [address] 09-03-2023 07:42-0400 Body height 170.[address] Kaley Meier Work Phone: 3(705)756-440390 [place] [address] 09-03-2023 07:42-0400 Body mass index (BMI) [Ratio] 28.8 kg/m2 Dr. Kaley Meier Work Phone: 6(560)147-000455 [place] [address] 09-03-2023 07:42-0400 Body weight 83.[address] Kaley Meier Work Phone: 1(897)978-821090 [place] [address] 07-13-2023 09:22-0400 Body mass index (BMI) [Ratio] 28.1 kg/m2 Dr. Kaley Meier Work Phone: 9(233)650-273155 [place] [address] 07-13-2023 09:22-0400 Body weight 81.[address] Kaley Meier Work Phone: 8(576)431-755390 [place] [address] 03-13-2023 16:20-0500 Body temperature 98.8 [degF] Dr. Javed Meier Work Phone: 9(735)782-738290 [place] [address] 03-13-2023 16:20-0500 Diastolic blood pressure 82 mm[Hg] Dr. Javed Meier Work Phone: 1(064)132-243590 [place] [address] 03-13-2023 16:20-0500 Heart rate 76 /min Dr. Javed Meier Work Phone: 7(354)477-284690 [place] [address] 03-13-2023 16:20-0500 Respiratory rate 15 /min Dr. Javed Meier Work Phone: 1(598)841-385590 [place] [address] 03-13-2023 16:20-0500 SaO2% (BldA) [Mass fraction] 96 % Dr. Javed Meier Work Phone: 9(112)731-226155 [place] [address] 03-13-2023 16:20-0500 Systolic blood pressure 142 mm[Hg] Dr. Javed Meier Work Phone: 8(817)361-789990 [place] [address] 02-06-2023 10:36-0400 Body height 172.[address] Javed Meier Work Phone: 6(414)283-501855 [place] [address] 02-06-2023 10:36-0400 Body mass index (BMI) [Ratio] 28.5 kg/m2 Dr. Javed Meier Work Phone: [facility] 02-06-2023 10:36-0400 Body temperature 101.4 [degF] Dr. Javed Meier Work Phone: [facility] 02-06-2023 10:36-0400 Body weight 85.[address] Javed Meier Work Phone: [facility] 02-06-2023 10:36-0400 Diastolic blood pressure 79 mm[Hg] Dr. Javed Meier Work Phone: [facility] 02-06-2023 10:36-0400 Heart rate 78 /min Dr. Javed Meier Work Phone: [facility] 02-06-2023 10:36-0400 Respiratory rate 18 /min Dr. Javed Meier Work Phone: 3(176)120-750855 [place] [address] 02-06-2023 10:36-0400 SaO2% (BldA) [Mass fraction] 93 % Dr. Javed Meier Work Phone: [facility] 02-06-2023 10:36-0400 Systolic blood pressure 129 mm[Hg] Dr. Javed Meier Work Phone: [facility] 05-18-2022 09:50-0500 Body height 167.[address] Javed Meier Work Phone: [facility] 05-18-2022 09:50-0500 Body mass index (BMI) [Ratio] 30.3 kg/m2 Dr. Javed Meier Work Phone: [facility] 05-18-2022 09:50-0500 Body temperature 98.4 [degF] Dr. Javed Meier Work Phone: [facility] 05-18-2022 09:50-0500 Body weight 85.[address] Javed Meier Work Phone: [facility] 05-18-2022 09:50-0500 Diastolic blood pressure 72 mm[Hg] Dr. Javed Meier Work Phone: [facility] 05-18-2022 09:50-0500 Heart rate 60 /min Dr. Javed Meier Work Phone: [facility] 05-18-2022 09:50-0500 Respiratory rate 14 /min Dr. Javed Meier Work Phone: [facility] 05-18-2022 09:50-0500 SaO2% (BldA) [Mass fraction] 98 % Dr. Javed Meier Work Phone: [facility] 05-18-2022 09:50-0500 Systolic blood pressure 124 mm[Hg] Dr. Javed Meier Work Phone: [facility] 05-14-2022 15:16-0500 Diastolic blood pressure 80 mm[Hg] Dr. Javed Meier Work Phone: [facility] 05-14-2022 15:16-0500 Systolic blood pressure 120 mm[Hg] Dr. Javed Meier Work Phone: [facility] 05-14-2022 15:16-0500 Body mass index (BMI) [Ratio] 30.2 kg/m2 Dr. Javed Meier Work Phone: [facility] 05-14-2022 15:16-0500 Body weight 84.[address] Javed Meier Work Phone: [facility] 05-14-2022 15:16-0500 Heart rate 64 /min Dr. Javed Meier Work Phone: [facility] 05-14-2022 15:16-0500 Respiratory rate 18 /min Dr. Javed Meier Work Phone: [facility] 05-14-2022 15:16-0500 SaO2% (BldA) [Mass fraction] 97 % Dr. Javed Meier Work Phone: [facility] 05-07-2022 18:44-0500 Diastolic blood pressure 76 mm[Hg] [facility] 05-07-2022 18:44-0500 Heart rate 56 /min [facility] 05-07-2022 18:44-0500 Respiratory rate 17 /min [facility] 05-07-2022 18:44-0500 SaO2% (BldA) [Mass fraction] 98 % [facility] 05-07-2022 18:44-0500 Systolic blood pressure 112 mm[Hg] [facility] 05-07-2022 15:32-0500 Body height 167.64 cm [facility] Work Phone: 05-07-2022 15:32-0500 Body mass index (BMI) [Ratio] 30.7 kg/m2 [facility] 05-07-2022 15:32-0500 Body temperature 96.5 [degF] [facility] 05-07-2022 15:32-0500 Body weight 86.18 kg [facility] 11-27-2021 10:56-0400 Body height 167.[address] Javed Meier Work Phone: [facility] Work Phone: 11-27-2021 10:56-0400 Body mass index (BMI) [Ratio] 31.3 kg/m2 Dr. Javed Meier Work Phone: [facility] Work Phone: 11-27-2021 10:56-0400 Body weight 87.[address] Javed Meier Work Phone: [facility] Work Phone: 11-27-2021 10:56-0400 Diastolic blood pressure 76 mm[Hg] Dr. Javed Meier Work Phone: [facility] Work Phone: 11-27-2021 10:56-0400 Heart rate 61 /min Dr. Javed Meier Work Phone: [facility] Work Phone: 11-27-2021 10:56-0400 Respiratory rate 16 /min Dr. Javed Meier Work Phone: [facility] Work Phone: 11-27-2021 10:56-0400 Systolic blood pressure 123 mm[Hg] Dr. Javed Meier Work Phone: [facility] Work Phone: Encounters Encounter Date Encounter Type Care Provider Facility Start: 12-13-2024 End: 12-13-[address] Kaley Meier MD Work Phone: [facility] Start: 12-13-2024 End: 12-13-2024 Patient encounter procedure Parish Vele[place] [facility] Work Phone: Start: 08-03-2024 End: 08-03-[address] Kaley Meier MD Work Phone: [facility] Work Phone: Start: 08-03-2024 End: 08-03-[address] Kaley Meier MD -Laboratory, [facility] Start: 08-03-2024 End: 08-03-2024 ambulatory Kaley Meier Facility:[facility] Start: 01-19-2024 End: 01-19-2024 ambulatory Kaely Meier Facility:[facility] Start: 01-06-2024 End: 01-06-2024 ambulatory Parish Lee Facility:[facility] Start: 11-13-2023 End: 11-13-2023 ambulatory Bonilla Lujan Facility:[facility] Start: 11-05-2023 ambulatory Bonilla Lujan Facility:[facility] Start: 09-07-2023 End: 09-07-2023 ambulatory Kaley Meier Facility:[facility] Start: 09-03-2023 ambulatory Kaley Meier Faci lity:[facility] Start: 09-03-2023 Non-patient / Non-visit Dr. Kaley Meier Work Phone: [facility] Start: 09-03-2023 End: 09-03-2023 Admission to same day surgery center Dr. Kaley Meier Work Phone: [facility]End[facility] Work Phone: Start: 09-03-2023 End: 09-03-[address] Kaley Meier Work Phone: [facility] Work Phone: Start: 07-13-2023 Non-patient / Non-visit Dr. Kaley Meier Work Phone: [facility] Work Phone: Start: 06-08-2023 End: 06-08-[address] Javed Meier Work Phone: [facility] Work Phone: Start: 06-08-2023 End: 06-08-[address] Javed Meier Work Phone: [facility]Laboratory, Specimen Work Phone: Start: 05-05-2023 End: 05-05-[address] Javed Meier Work Phone: [facility] Work Phone: Start: 03-27-2023 End: 03-27-[address] Javed Meier Work Phone: [facility] Work Phone: Start: 03-13-2023 End: 03-13-[address] Javed Meier Work Phone: [facility] Work Phone: Start: 03-13-2023 End: 03-13-[address] Javed Meier Work Phone: [facility]Laboratory, Specimen Work Phone: Start: 03-13-2023 End: 03-13-[address] Javed Meier Work Phone: [facility] Work Phone: Start: 02-06-2023 End: 02-06-[address] Javed Meier Work Phone: [facility] Work Phone: Start: 05-19-[address] Javed Meier Work Phone: [facility]Laboratory, Specimen Start: 05-18-2022 End: 05-18-[address] Javed Meier Work Phone: [facility] Start: 05-14-2022 End: 05-14-[address] Javed Meier Work Phone: [facility] Work Phone: Start: 05-14-2022 End: 05-14-[address] Javed Meier Work Phone: [facility] Start: 05-07-2022 End: 05-07-2022 [facility] Start: 12-02-2021 Non-patient / Non-visit Dr. Javed Meier Work Phone: [facility] Start: 12-02-2021 End: 12-02-[address] Javed Meier Work Phone: [facility]Cardiov[facility] Start: 11-27-2021 End: 11-27-[address] Javed Meier Work Phone: [facility] Procedures Date Procedure Procedure Detail Performing Clinician Start: 09-03-[address] Neymar Meier Work Phone: Start: 05-05-2023 Ultrasound of scrotu m with Doppler and color flow imaging Dr. Javed Meier Work Phone: Start: 03-27-2023 Ultrasound of scrotu m with Doppler and color flow imaging Dr. Javed Meier Work Phone: Start: 03-13-[address] Taz Meier Work Phone: Start: 05-07-2022 Plain chest X-ray Start: 12-02-2021 Radionuclide imaging of perfusion of myocardium under exercise stress Dr. Javed Meier Work Phone: History of appendectomy S/P appendectomy Dr. Kaley Meier MD Work Phone: Comment on above: The patient is a 53- year-old male status post a successful laparoscopic appendectomy for acute appendicitis. He is doing well postoperatively. He has no issues, problems or concerns. Pathology was consistent with routine appendicitis. I recommend that he continue to avoid significant lifting for another week or 2. Follow-up will be as needed. Urine culture Dr. Javed Meier Work Phone: Plan of Treatment Date Care Activity Detail Author Start: 09-03-2023 Patient discharge [facility] Colonoscopy [facility] Patient Education ED Hypertensio n, Established ED Near-Fainting, Uncertain Cause [facility] Work Phone: Patient referral [facility] Work Phone: [facility] Payers Date Payer Category Payer Self-pay [id number] 2022 Unknown [id number] Unknown [facility] P[employer] [id number] Unknown [id number] 2.16.8 [id number] Unknown [id number] 2.16.8 [id number] Unknown [id number] 2.16.8 [id number] Unknown [id number] 2.16.8 [id number] Unknown [id number] 2.16.8 [id number] Unknown [id number] 2.16.8 [id number] Unknown [id number] 2.16.8 [id number] Unknown [id number] 2.16.8 [id number] Unknown [id number] 2.16.8 [id number] Social History Date Type Detail Facility Start: 11-27-2021 End: 09-03-2023 Tobacco smoking status NHIS Unknown if ever smoked [facility] Start: 05-25-2020 None [facility] Start: 05-25-2020 Spouse/ Signif icant Other [facility] Start: 1970 Sex Assigned At Male W [facility] Start: 01-06-2024 Tobacco smoking status NHIS Never smoked tobacco (finding) [facility] Start: 08-09-2024 Sex Male (finding) [facility] Medical Equipment Procedure Code Equipment Code Equipment Origin al Text Equipment Identifier Dates Appendectomy, laparoscopic Surgical staple loading unit, non-cutting [id number] FDA Start: 01-06-2024 Appendectomy, laparoscopic Surgical staple loading unit, non-cutting ()[id number] FDA Start: 01-06-2024 Goals Date Patient Goal Desired Activity /State Mental Status Date Assessment Result Facility 09-03-2023 Cognitive function Level Of Cons ciousness Follows Commands;Drowsy [facility] Work Phone: 09-03-2023 Cognitive function Voice/Name [facility] Work Phone: Clinical Notes 09-03-2023 to 01-06-2024 Note Date & Type Note Facility 01-06-2024 Note [facility] Medical Records Department [address] [place] [address] History Physical Exam 01/06/24 1724 MR#: [id number] Acct: [id number] Name: DEREK CERDA Rep #: [id number] : 1970 53 From: Parish Lee MD PCP: Dr. Kaley Meier MD Status:[facility] Location: [place] [address] HPI - General General Date of Admission: 01/06/24 Date of Service: 01/06/24 Chief Complaint: Right lower quadrant pain HPI Narrative DEREK CERDA, is a 53 M who presents to the emergency room with right lower quadrant pain that started this morning and has persistent throughout the course of the day. He presented to the emergency department for further evaluation and treatment. He was seen by the ER staff and underwent a battery of laboratory testing. He had a elevated white blood cell count of around 14,000. CT scan was performed and showed findings consistent with appendicitis. Surgical consult was obtained. He denies any significant fevers or chills. He has never had pain in this location in the past. He has not had any previous abdominal surgeries [facility] Medical History Wears glasses Alcohol use High cholesterol Gastric reflux Non-smoker CPAP (continuous positive airway pressure) dependence Sleep apnea History of echocardiogram History of stress test Cardiology follow-up encounter Hyperlipidemia Chest pain Pre-syncope Essential hypertension Home Medications ???Medication ???Instructions ???Recorded ???Last Taken ???Type hydrochlorothiazide 12.5 mg tablet 12.5 mg PO DAILY 11/27/21 09/01/23 History lisinopril 40 mg tablet 40 mg PO DAILY #90 tabs 06/08/23 09/03/23 Rx multivitamin (Daily Multi-Vitamin 1 tab PO DAILY 09/01/23 Unknown History tablet) atorvastatin 10 mg tablet 10 mg PO DAILY #90 tabs 11/13/23 Unknown Rx loratadine 10 mg tablet 10 mg PO DAILY PRN 11/13/23 Unknown History Allergy/AdvReac Type Severity Reaction Status Date / Time No Known Allergies Allergy Verified 01/06/24 14:57 Family History Brother Hypertension Multiple sclerosis Mother Arthritis Father Hypertension Hyperlipidemia Sister Multiple sclerosis Surgical History Amputation finger (2005) H/O nasal septoplasty (2008) Social History household members: spouse current occupational status: employed Smoking Status: Never smoker alcohol intake: current alcohol intake frequency: a few times a week substance use type: does not use caffeine: Yes Type: coffee Number of servings: 2 Vital Signs Vital Signs Vital Signs: 01/06/24 14:57 01/06/24 17:00 01/06/24 17:04 Temperature 97.9 F 98.2 F Temperature Source Temporal Temporal Pulse Rate 87 73 73 Respiratory Rate 18 18 18 Blood Pressure 155/89 H 129/85 H 129/85 H Blood Pressure Mean 111 99 99 Blood Pressure Source Monitor Blood Pressure Location Right Arm Pulse Ox 94 97 98 Oxygen Delivery Method Room Air Room Air Room Air 01/06/24 17:10 Temperature 98.2 F Temperature Source Pulse Rate 78 Respiratory Rate 19 H Blood Pressure 129/85 H Blood Pressure Mean 99 Blood Pressure Source Blood Pressure Location Pulse Ox 98 Oxygen Delivery Method Weight Weight: 192 lb 3.889 oz Body Mass Index (BMI) 30.1 Physical Exam Const alert, oriented x3, no apparent distress and average body habitus General Appearance: cooperative and comfortable Orientation / Consciousness: awake, oriented to person, oriented to place and oriented to time HEENT normocephalic Eyes PERRL and EOMs intact bilaterally Chest Chest: symmetrical chest wall rise Resp normal respiratory effort and normal air movement Cardio regular rate and regular rhythm GI GI Narrative: Abdomen is soft and nondistended. He has mild to moderate tenderness to palpation in the right lower quadrant. Results Lab / Micro Data 01/06/24 15:20 01/06/24 15:20 Labs: Laboratory Results - last 24 hr 01/06/24 15:20: WBC 14.0 H, RBC 4.76, Hgb 14.5, Hct 42.5, MCV 89.3, MCH 30.5, MCHC 34.1, RDW Std Deviation 40.2, RDW Coeff of Simone 12.3, Plt Count 272, MPV 9.4, Immature Gran % (Auto) 0.400, Neut % (Auto) 78.2 H, Lymph % (Auto) 13.4 L, Blount % (Auto) 7.4, Eos % (Auto) 0.4, Baso % (Auto) 0.2, A bsolute Neuts (auto) 10.9 H, Absolute Lymphs (auto) 1.88, Nucleated RBC % 0, Sodium 135 L, Potassium 3.6, Chloride 106, Carbon Dioxide 25.0, Anion Gap 4 L, BUN 17, Creatinine 1.05, Estim Creat Clear Calc 86.77, Est GFR (MDRD) Af Amer 95, Est GFR (MDRD) Non-Af 79, BUN/Creatinine Ratio 16.2, Glucose 102, Calcium 9.0, Total Bilirubin 0.50, Direc (more content not included)... [facility] 09-03-2023 Procedure note [facility] 09-03-2023 Procedure note [facility] 09-03-2023 Note [facility] Medical Records Department [address] [place] [address] History Physical Exam 09/03/23 0822 MR#: [id number] Acct: [id number] Name: DEREK CERDA Rep #: [id number] : 1970 52 From: Jj Kovacs MD PCP: Dr. Kaley Meier MD Status:[facility] Location: [address] - General General Date of Service: 09/03/23 HPI Narrative DEREK CERDA, is a 52 M who presents for screening colonoscopy. He confirms his preappointment questionnaire that he has not experienced any change in his bowel habits-and particularly denies any notice of blood. He also denies any family history of GI illness to include diverticulitis, inflammatory bowel disease, or colon cancer. Lastly he confirms that his prep was completed successfully and that his output is now clear. [facility] Medical History (Updated 09/01/23 @ 14:14 by Cesilia Kumar) Alcohol use Cardiology follow-up encounter Chest pain CPAP (continuous positive airway pressure) dependence Essential hypertension Gastric reflux High cholesterol History of echocardiogram History of stress test Hyperlipidemia Non-smoker Pre-syncope Sleep apnea Wears glasses Home Medications hydrochlorothiazide 12.5 mg tablet 12.5 mg PO DAILY 11/27/21 [History Last Taken 09/01/23] atorvastatin 10 mg tablet 10 mg PO DAILY #90 tabs 08/27/22 [Rx Last Taken 09/01/23] lisinopril 40 mg tablet 40 mg PO DAILY #90 tabs 06/08/23 [Rx Last Taken 09/03/23] multivitamin (Daily Multi-Vitamin tablet) 1 tab PO DAILY 09/01/23 [History Last Taken Unknown] Allergy/AdvReac Type Severity Reaction Status Date / Time No Known Allergies Allergy Verified 09/03/23 07:41 Family History Brother Hypertension Multiple sclerosis Mother Arthritis Father Hypertension Hyperlipidemia Sister Multiple sclerosis Surgical History Amputation finger (2005) H/O nasal septoplasty (2008) Social History (Updated 07/13/23 @ 09:15 by Radhika Rivera) household members: spouse current occupational status: employed Smoking Status: Never smoker alcohol intake: current alcohol intake frequency: a few times a week substance use type: does not use caffeine: Yes Type: coffee Number of servings: 2 Past Medical/Surgical History Planned Operation Planned Operative Procedure/s: COLONOSCOPY-OA Previous Hospitalizations/Surgeries HX Hospitalizations: No Any Problems With Anesthesia: No You/Your Family Experience Fever (Hyperthermia) With Anes: No Cholinesterase deficiency: No Cardiovascular Hx Hypertension: Yes (CONTROLLED ON MED) Respiratory Hx Sleep Apnea: Yes CPAP: Yes (NO MACHINE) BIPAP: No Hx Respiratory Tract Infection/Cold (presently): No Result (for STOP score): Positive Smoking Status: Never smoker Neurological Does patient have nerve stimulator: No Endocrine Hx Diabetes: No Psycho/Social Hx Anxiety: No Hx Depression: No Miscellaneous Recent Exposure to Contagious Disease: No Allergies No Known Allergies Allergy (Verified 09/03/23 07:41) Discharge Is Pt Admitted From a Snf, or a Nursing Home: No After D/C, Where Do you Plan to Go: Return Home Vital Signs Vital Signs Vital Signs: 09/03/23 07:42 09/03/23 07:42 Temperature 97.7 F L Temperature Source Temporal Pulse Rate 69 Respiratory Rate 16 Respiratory Pattern Normal Blood Pressure 148/97 H Blood Pressure Mean 114 Blood Pressure Source Monitor Blood Pressure Position Semi-Fowlers Blood Pressure Location Right Arm Pulse Ox 97 Oxygen Delivery Method Room Air Weight Weight: 184 lb 4.903 oz Body Mass Index (BMI) 28.8 Physical Exam Const alert, oriented x3, no apparent distress and average body habitus Resp normal respiratory effort GI Inspection: Negative for abdominal distention Palpation: soft; Negative for tender Assessment Plan Assessment/Plan (1) Encounter for screening for malignant neoplasm of colon: PLAN: Patient is a 52-year-old male who presents for open access colonoscopy. He confirms his preappointment questionnaire and denies any present issues. He confirms that he completion of a prep. Procedure expectations and reporting of procedure results were reviewed. Neither patient nor spouse had any further questions. Will now proceed to endoscopy suite for planned screening colonoscopy. Surgery Risks - Colonoscopy Risks Include but are not Limited To: Risks include but are not limited to: Bleeding, perforation requiring further surgery, inability to complete colonoscopy requiring barium enema. 09/03/23824 Cosigner Signature (if applicable): CC: Dr. Kaley Meier MD; Dr. Jj Kovacs MD Signed [facility] Evaluation note Diagnosis Onset Date Chest pain acute Essential hypertension acute Hyperlipidemia chronic [facility] Work Phone: Evaluation noteNo assessment information available [facility] Work Phone: Evaluation note* Diagnosis Onset Date Resolution Status Essential hypertension acute Hyperlipidemia chronic Increased urinary frequency acute [facility] Work Phone: Evaluation note* Diagnosis Onset Date Resolution Status Acute pharyngitis acute Urinary tract infection none active [facility] Work Phone: Evaluation note* Diagnosis Onset Date Resolution Status Urinary tract infection none active [facility] Work Phone: Evaluation note* Diagnosis Onset Date Resolution Status Encounter for screening for malignant neoplasm of colo n acute [facility] Work Phone: History and physical note Author Jj Kovacs [facility] September 03, 2023 8:25am Note Date/Time September 03, 2023 8:26am [facility] Medical Records Department [address] [place] [address] History & Physical Exam 09/03/23 0822 MR#: [id number] Acct: [id number] Name: DEREK CERDA Rep #:[id number] : 1970 52 From: Jj Araiza PCP: Dr. Kaley Meier MD Status :[facility] Location: [address] - General General Date of Service: 09/03/23 HPI Narrative DEREK CERDA, is a 52 M who presents for screening colonoscopy. He confirms his preappointment questionnaire that he has not experienced any change in his bowel habits-and particularly denies any notice of blood. He also denies any family history of GI illness to include diverticulitis, inflammatory bowel disease, or colon cancer. Lastly he confirms that his prep was completed successfully and that his output is now clear. [facility] Medical History (Updated 09/01/23 @ 14:14 by Cesilia Kumar) Alcohol use Cardiology follow-up encounter Chest pain CPAP (continuous positive airway pressure) dependence Essential hypertension Gastric reflux High cholesterol History of echocardiogram History of stress test Hyperlipidemia Non-smoker Pre-syncope Sleep apnea Wears glasses Home Medications hydrochlorothiazide 12.5 mg tablet 12.5 mg PO DAILY 11/27/21 [History Last Taken 09/01/23] atorvastatin 10 mg tablet 10 mg PO DAILY #90 tabs 08/27/22 [Rx Last Taken 09/01/23] lisinopril 40 mg tablet 40 mg PO DAILY #90 tabs 06/08/23 [Rx Last Taken 09/03/23] multivitamin (Daily Multi-Vitamin tablet) 1 tab PO DAILY 09/01/23 [History Last Taken Unknown] Allergy/AdvReac Type Severity Reaction Status Date / Time No Known Allergies Allergy Verified 09/03/23 07:41 Family History Brother Hypertension Multiple sclerosis Mother Arthritis Father Hypertension Hyperlipidemia Sister Multiple sclerosis Surgical History Amputation finger (2005) H/O nasal septoplasty (2008) Social History (Updated 07/13/23 @ 09:15 by Radhika Rivera) household members: spouse current occupational status: employed Smoking Status: Never smoker alcohol intake: current alcohol intake frequency: a few times a week substance use type: does not use caffeine: Yes Type: coffee Number of servings: 2 Past Medical/Surgical History Planned Operation Planned Operative Procedure/s: COLONOSCOPY-OA Previous Hospitalizations/Surgeries HX Hospitalizations: No Any Problems With Anesthesia: No You/Your Family Experience Fever (Hyperthermia) With Anes: No Cholinesterase deficiency: No Cardiovascular Hx Hypertension: Yes (CONTROLLED ON MED) Respiratory Hx Sleep Apnea: Yes CPAP: Yes (NO MACHINE) BIPAP: No Hx Respiratory Tract Infection/Cold (presently): No Result (for STOP score): Positive Smoking Status: Never smoker Neurological Does patient have nerve stimulator: No Endocrine Hx Diabetes: No Psycho/Social Hx Anxiety: No Hx Depression: No Miscellaneous Recent Exposure to Contagious Disease: No Allergies No Known Allergies Allergy (Verified 09/03/23 07:41) Discharge Is Pt Admitted From a Snf, or a Nursing Home: No After D/C, Where Do you Plan to Go: Return Home Vital Signs Vital Signs Vital Signs: 09/03/23 07:42 09/03/23 07:42 Temperature 97.7 F L Temperature Source Temporal Pulse Rate 69 Respiratory Rate 16 Respiratory Pattern Normal Blood Pressure 148/97 H Blood Pressure Mean 114 Blood Pressure Source Monitor Blood Pressure Position Semi-Fowlers Blood Pressure Location Right Arm Pulse Ox 97 Oxygen Delivery Method Room Air Weight Weight: 184 lb 4.903 oz Body Mass Index (BMI) 28.8 Physical Exam Const alert, oriented x3, no apparent distress and average body habitus Resp normal respiratory effort GI Inspection: Negative for abdominal distention Palpation: soft; Negative for tender Assessment & Plan Assessment/Plan (1) Encounter for screening for malignant neoplasm of colon: PLAN: Patient is a 52-year-old male who presents for open access colonoscopy. He confirms his preappointment questionnaire and denies any present issues. He confirms that he completion of a prep. Procedure expectations and reporting of procedure results were reviewed. Neither patient nor spouse had any further questions. Will now proceed to endoscopy suite for planned screening colonoscopy. Surgery Risks - Colonoscopy Risks Include but are not Limited To: Risks include but are not limited to: Bleeding, perforation requiring further surgery, inability to complete colonoscopy requiring barium enema. 09/03/23 0825 <Electronically signed by Jj Kovacs MD> Cosigner Signature (if applicable): CC: Dr. Kaley Meier MD; Dr. Jj Kovacs MD~ Signed [facility] Work Phone: Reason for referral (narrative)No reason for referral [facility] Work Phone: Summary Purpose Family History Relationship Condition Age at Onset Recorded Date/T yissel brother Hypertension Unknown Multiple sclerosis Unknown mother Arthritis Unknown father Hypertension Unknown Hyperlipidemia Unknown sister Multiple sclerosis Unknown Advance Directives Advance Directive Response Recorded Date/ Time Living Will No May 25 11:23pm Power of Commissary Worker No May 25, 2020 11:23pm Advance Directive Response Recorded Date/ Time Living Will No May 07 3:47pm Power of Commissary Worker No May 07, 2022 3:47pm Advance Directive Response Recorded Date/ Time Living Will No September 01, 2023 2: 15pm Power of Commissary Worker No September 01, 2023 2:15pm Chief Complaint and Reason for Visit Chief Complaint 6 M FU CP CP Reason for Visit Chest pain Essential hypertension Hyperlipidemia Chief Complaint near syncope, HTN Chief Complaint near syncope, HTN WC ER, NEAR SYNCOPE & HTN Urinary tract infection Reason for Visit Essential hypertensi on Hyperlipidemia Increased urinary frequency Chief Complaint SORE THROAT, FEVER, CHILLS Urinary tract infection Reason for Visit Acute pharyngitis Urinary tract infection Chief Complaint Urinary tract infect ion Testicular pain, unspecified TESTI PAIN Reason for Visit Urinary tract infect ion Chief Complaint Amb Documentation Reason for Visit Encounter for screen ing for malignant neoplasm of colon Chief Complaint Admit Date concern for uti December 13, 2024 7: 06am Additional Source Comments (unrecognized sect ion and content) No Status Records FoundNo Status Records Found INFORMATION SOURCE (unrecogn ized section and content) DATE CREATED AUTHOR 04/25/2021 [facility] DATE CREATED AUTHOR AUTHOR'S ORGANIZ ATION 08/11/2024 [facility] Goals (unrecognized section and content) Goals may be documented in a n alternate sectionGoals may be documented in an alternate sectionGoals may be documented in an alternate sectionGoals may be documented in an alternate sectionGoals may be documented in an alternate sectionGoals may be documented in an alternate sectionGoals may be documented in an alternate section Care Teams (unrecognized sec tion and content) Team Status: Active Member Role Status Dates Dr. Javed Meier MD Family Provider Active Dr. Javed Meier MD Primary Care Provider Activ e Team Status: Inactive Member Role Status Dates Dr. Javed Meier MD Primary Care Provider, [facility] Provider Active Lilli MULLIGAN, PA Attending Provider Active Team Status: Inactive Member Role Status Dates Dr. Javed Meier MD Primary Care Provider, Refe rring Provider Active Mariel Harvey KING [employer]KER, KING MA[employer]ER-C Attending Provider Active Team Status: Inactive Member Role Status Dates Dr. Javed Meier MD Primary Care Provider Activ e Adam Mohan MD Attending Provider, Emergency Provid er Active Team Status: Inactive Member Role Status Dates Dr. Javed Meier MD Primary Care Provider Activ e Lilli Haley PA, PA Attending Provider Active Team Status: Active Member Role Status Dates Dr. Javed Meier MD Primary Care Provider Activ e Mariel Harvey KING [employer]KER, KING [employer]-C Attending Provider, Referrin g Provider Active Team Status: Inactive Member Role Status Dates Dr. Javed Meier MD Primary Care Provider, Refe rring Provider Active Patel Araujo PA, PA Attending Provider Active Team Status: Inactive Member Role Status Dates Dr. Javed Meier MD Primary Care Provider Activ e Patel Araujo PA, PA Attending Provider, Referring Provi azael Active Team Status: Inactive Member Role Status Dates Dr. Javed Meier MD Primary Care Provider, Attending Provider, Referring Provider Active Team Status: Inactive Member Role Status Dates Dr. Javed Meier MD Primary Care Provider Activ e Dr. Gustabo Salas MD Attending Provider Active Team Status: Active Member Role Status Dates Dr. Kaley Meier MD Family Provider Active Dr. Kaley Meier MD Primary Care Provider Acti ve Team Status: Active Member Role Status Dates Dr. Kaley Meier MD Primary Care Provider Acti ve Radhika Miguel Attending Provider Active Team Status: Active Member Role Status Dates Dr. Kaley Meier MD Primary Care Provider, Ref erring Provider Active Dr. Jj Kovacs MD Attending Provider, Other Provi azael Active Team Status: Inactive Member Role Status Dates Dr. Kaley Meier MD Primary Care Provider Acti ve Dr. Gustabo Salas MD Attending Provider Active Team Status: Inactive Member Role Status Dates Dr. Kaley Meier MD Primary Care Provider, Ref erring Provider Active Dr. Jj Kovacs MD Attending Provider Active Team Status: Inactive Member Role Status Dates Dr. Kaley Meier MD Primary Care Provider Acti ve Start: August 03, 2024 End: August 03, 2024 Dr. Kaley Meier MD Attending Provider Active Start: August 03, 2024 End: August 03, 2024 Dr. Kaley Meier MD Referring Provider Active Start: August 03, 2024 End: August 03, 2024 Team Status: Active Member Role/Relationship Status Dates Dr. Kaley Meier MD Family Provider Active Dr. Kaley Meier MD Primary Care Provider Acti ve Team Status: Inactive Member Role/Relationship Status Dates Dr. Kaley Meier MD Primary Care Provider Acti ve Start: December 13, 2024 End: December 13, 2024 Dr. Kaley Meier MD Referring Provider Active Start: December 13, 2024 End: December 13, 2024 Parish MULL[place]AN, [place] Attending Provider Active Start: December 13, 2024 End: December 13, 2024 FOR RECORDS PERTAINING TO PATIENTS WHO ARE [...] BE BASED ON THE PRIMARY CLINICAL RECORDS. [employer] provides no warranty or guarantee of the accuracy or completeness of information in this document.
== END | disposition home or self-care (01) ==
LOC: LABSPEC 07:38
PROVIDERS: PCP Family Medicine; Visit Provider Physician Assistant
DX: R30.0 Dysuria (principal)
CPT/HCPCS: 87086